=== PATIENT | male | born 1950 | race Caucasian/White ===

== ENCOUNTER 2021-12-30 08:31 | Outpatient (CLI) | payer SELFPAY ==
--- OUTSIDE RECORDS SUMMARY | 2021-12-30 08:34 | XMS_ITS | Clinical Summary ---
:1950 Author Organization [employer] [facility] [place] [address] Care Team Providers Name Role Phone Tomas Lopez MD Primary Care Provider Allergies Active Allergy Reactions Severity Noted Date Comments Lisinopril Cough 10/30/2007 Medications Medication Sig Dispensed Refills Start Date End Date Status ZYRTEC 10 MG TAB take 1 tablet 0 10/30/2007 Active (10 mg) by oral route once daily MULTIVITAMIN TAB take 1 tablet by 0 01/02/2008 Active oral route once daily with food FISH OIL 1,000 MG CAP 0 01/02/2008 Active metoprolol succinate Take 1 tablet by 180 tablet 3 08/26/2017 Active (TOPROL XL) 50 mg mouth 2 times sustained-release daily. tabletIndications: Essential hypertension, Hypertrophic obstructive cardiomyopathy (HC) atorvastatin (LIPITOR) Take 1 tablet by 0 10/20/2017 Active 40 mg tablet mouth once daily. rivaroxaban (XARELTO) Take 1 tablet by 0 10/20/2017 Active 20 mg tablet mouth once daily with evening meal. tamsulosin (FLOMAX) 0.4 Take 0.4 mg by 10 10/26/2017 Active mg capsule mouth once daily after a meal. omeprazole (PRILOSEC) Take 1 capsule 0 11/18/2017 Active 20 mg Delayed-Release by mouth once capsule daily before a meal. Active Problems Problem Noted Date Hypertrophic cardiomyopathy 11/18/2017 Hypertrophic obstructive cardiomyopathy 08/05/2017 GERD (gastroesophageal reflux disease) 01/02/2008 Adjustment disorder with depressed mood 11/13/2007 Benign neoplasm of colon 02/07/2007 Overview: Next Colonoscopy 07/2010 Pure hypercholesterolemia 12/20/2006 Unspecified essential hypertension 12/20/2006 Resolved Problems Problem Noted Date Resolved Date Elevated blood pressure reading without diagnosis of 007 12/20/2006 hypertension Immunizations Name Administration Dates Next Due Hepatitis A (Adult) 03/25/2003 Influenza, IIV3 (Age >=3 years) 01/02/2008, 01/14/2007 Td (Age >=7 Years) 12/18/1996 Tdap 09/19/2006 09/19/2016 Family History Medical History Relation Name Comments Other Brother 1 Aneurysm - Cereb ral survived Hyperlipidemia Brother 2 Heart Disease Brother 3 Atrial fibrillat ion, Pacemaker Arthritis Brother 4 Other Father of MVA at 4 9 Blood Disease Mother of Leukemia at 73 Heart Disease Paternal Uncle of [place] at 50 Other Sister 1 Aneurysm - Cereb ral survived Hyperlipidemia Sister 2 Arthritis Sister 3 Relation Name Status Comments Brother 1 Brother 2 Brother 3 Brother 4 Father Mother Paternal Uncle Sister 1 Sister 2 Sister 3 Social History Tobacco Use Types Packs/Day Years Used Date Current Every Day Smoker Cigarettes 0.5 37 Smokeless Tobacco: Never Used Alcohol Use Standard Drinks/Week Comments Yes 12 (1 standard drink = 0.6 oz pure alcoh ol) 12 pack per week Sex Assigned at Date Recorded Not on file Obstetrics History Last Filed Vital Signs Vital Sign Reading Time Taken Comments Blood Pressure 144/94 11/18/2017 11:31 AM CDT Pulse 69 11/18/2017 11:31 AM CDT Temperature 36.6 ??C (97.9 ??F) 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 Respiratory Rate - - Oxygen Saturation 99% 11/18/2017 11:31 AM CDT Inhaled Oxygen Concentration - - Weight 96.3 kg (212 lb 6.4 oz) 11/18/2017 11:31 AM CDT Height 177.8 cm (5' 10) 11/18/2017 11:31 AM CDT Body Mass Index 30.48 11/18/2017 11:31 AM CDT Plan of Treatment Health Maintenance Due Date Last Done Comments COVID-19 vaccine series (#1) 05/12/1951 Depression screening for age 12+ 1963 Hepatitis C screening for age 18-79 11/09/1969 Colonoscopy through age 75 11/09/1996 Zoster (shingles) series for age 50+ 11/09/2001 (1 of 2) Lipids for age 45-75 04/18/2012 04/18/2007, 01/24/2007, 06/14/2006 Tetanus booster 09/19/2016 09/19/2006, 12/18/1996 Pneumococcal series for age 65+ (1 - 11/09/2016 PCV) BMI (ht and wt on same day) for age 0811/18/2018 11/18/2017, 10/20/2017 18+ Influenza for age 65+ 11/26/2021 01/02/2008, 01/14/2007 Tdap Completed 09/19/2006 Results Not on filefrom Last 3 Months Insurance Payer Benefit Plan / Subscriber ID Effective Dates Phone Addre ss Type Group MEDICARE PART B MEDICARE PART B [id number] 2016-[employer]en ATTN: CLAIMS - HB USE ONLY HB ONLY t [address] [place] [address] [place] [place]OSS [place] BLUE CROSS [id number] 2016-Presen [address] [address] [place], [place] [id number] BLUE CROSS BLUE CROSS [id number] 2016-Presen [address] [address] [place] [address], [place] [id number] [phone] (Home) [place], [place] [phone] 1 (Work) [facility] Occ Employer 03/28/1900 [phone] ATTN [employer] 7 (Home) [place] [phone] [facility] [address] 7 (Work) [place] [address] Care Teams Membership Secretary Relationship Specialty Start Date End Date Tomas Lopez MD PCP - General Internal Medicine 07/25/171999 [place], [place] [id number]
[2021-12-30 10:21] LABS: Albumin* 4.5 g/dL (3.3-5.0); Chloride* 95 mmol/L (96-114)
[2021-12-30 10:22] LABS: Potassium* 4.8 mmol/L (3.6-5.1); Sodium* 130 mmol/L (135-149)
[2021-12-30 10:24] LABS: Alkaline Phosphatase* 64 U/L (40-150); Aspartate Amino Transferase* 36 U/L (12-35); Bilirubin Total* 0.5 mg/dL (0.1-1.5); Blood Urea Nitrogen* 15 mg/dL (7-30); Carbon Dioxide* 26 mmol/L (20-32); Cholesterol* 111 mg/dL (90-199); Creatinine* 0.7 mg/dL (0.5-1.5); Estimated Glomerular Filt Rate 99 ml/min; Glucose* 89 mg/dL (60-115); Total Protein* 7.3 g/dL (6.0-8.3)
[2021-12-30 10:25] LABS: Alanine Aminotransferase* 32 U/L (4-50); Calcium* 9.1 mg/dL (8.4-10.6); HDL Cholesterol* 49 mg/dL (>=40); LDL Cholesterol Calculated 45 mg/dL (<100); Triglycerides* 85 mg/dL (40-149)
[2021-12-30 10:55] LABS: PSA Screen* 0.55 ng/mL (0.10-4.00)
== END 2021-12-30 08:32 | disposition home or self-care (01) ==
PROVIDERS: PCP Internal Medicine; Visit Provider Internal Medicine
DX: Z00.00 Encounter for general adult medical examination without abnormal findings (principal); I10 Essential (primary) hypertension; I48.91 Unspecified atrial fibrillation; Z12.5 Encounter for screening for malignant neoplasm of prostate
CPT/HCPCS: 80053; 80061; 84153

== ENCOUNTER 2022-01-15 13:58 | Outpatient (CLI) | payer MEDICARE, BC, SELFPAY ==
--- OUTSIDE RECORDS SUMMARY | 2022-01-18 10:28 | XMS_ITS | Clinical Summary ---
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 Respiratory Rate - - Oxygen Saturation 99% [...] Group MEDICARE PART B MEDICARE PART B [id number] 2016-[employer] ATTN: CLAIMS - HB USE ONLY HB ONLY t [address] [place] [address] [address]UE CROSS MR BLUE CROSS [id number] 2016-[employer]en [address] [address] [place] [place], [place] [id number] [employer] [place] [id number] 2016-[employer]en [address] [address] [place] [address] [place], [place] [id number] [phone] (Home) [place], [place] [phone] 1 (Work) [facility] [employer] Occ Employer 03/28/1900 [phone] ATTN [employer] 7 (Home) [place] [phone] [facility] [address] 7 (Work) [place] [address] Care Teams Manager Medical Device Relationship Specialty Start Date End Date Tomas Lopez MD PCP - General Internal Medicine 07/25/171999 [place], [place] [id number]
== END 2022-01-15 13:59 | disposition home or self-care (01) ==
LOC: AMB 01-18 10:26
PROVIDERS: PCP Internal Medicine; Visit Provider Family Medicine
DX: R55 Syncope and collapse (principal)
CPT/HCPCS: A0425; A0427

== ENCOUNTER 2022-01-15 14:30 | Emergency (ER) | payer MEDICARE, BC, SELFPAY ==
[2022-01-15] VITALS (19 sets, daily range): BP systolic 112–164; BP diastolic 77–118; PULSE 33–126; TEMP 35.7; O2SAT 87–100; BMI 30.4
--- NOTE | 2022-01-15 15:11 | CRLHL7_ITS ---
For Patients: As a result of the Century Cures Act, medical imaging exams and procedure reports are released immediately into your electronic medical record. You may view this report before your referring provider. If you have questions, please contact your health care provider. Indication: Syncope, dizziness Comparison: Single view chest July 04, 2017 Technique: PA and lateral views of the chest Findings: There is mild hyperinflation and chronic interstitial change. There is no dense consolidation, effusion or pneumothorax. The cardiomediastinal silhouette is within normal limits. The bony thorax is grossly intact. Impression: No acute cardiopulmonary abnormality. Dictated by Juan Lui MD @ 01/15/2022 3:45:46 PM (Electronically Signed)
--- NOTE | 2022-01-15 15:12 | CRLHL7_ITS ---
For Patients: As a result of the Century Cures Act, medical imaging exams and procedure reports are released immediately into your electronic medical record. You may view this report before your referring provider. If you have questions, please contact your health care provider. INDICATION: Syncope, dizziness. TECHNIQUE: Head CT without contrast. Coronal and sagittal reformats were generated. COMPARISON: Head CT from 07/04/2017. FINDINGS: CSF spaces: Within normal limits for age. Brain parenchyma and extra-axial spaces: Nonspecific low attenuation white matter changes consistent with chronic microvascular disease. No sign of mass, hemorrhage, or midline shift. Skull base and calvarium: The visualized paranasal sinuses and mastoid air cells demonstrate no acute or significant findings. The visualized orbits are grossly unremarkable. No skull fractures. IMPRESSION: No acute or significant findings. Please note that all CT scans at this facility use dose modulation, iterative reconstruction, and/or weight-based dosing when appropriate to reduce radiation dose to as low as reasonably achievable. Dictated by Jose Mueller MD @ 01/15/2022 3:48:53 PM (Electronically Signed)
--- OUTSIDE RECORDS SUMMARY | 2022-01-15 15:18 | XMS_ITS | Clinical Summary ---
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 Respiratory Rate - - Oxygen Saturation [...] Group MEDICARE PART B MEDICARE PART B [id number] 2016-Presen ATTN: CLAIMS - HB USE ONLY HB ONLY t [address] [place] [address] BLUE CROSS MR BLUE CROSS [id number] 2016-[employer]en [address] [address] [place], [place] [id number] [employer] [place] BL[place] [id number] 2016-[place] [address] [address] [place], [place] [id number] [phone] (Home) [place], [place] [phone] 1 (Work) [facility] Occ Employer 03/28/1900 [phone] ATTN [employer] 7 (Home) [place] [phone] [facility] [address] 7 (Work) [place] [address] Care Teams Life Skills Instructor Relationship Specialty Start Date End Date Tomas Lopez MD PCP - General Internal Medicine 07/25/171999 [place], [place] [address]
[2022-01-15 15:31] LABS: Basophils Absolute Auto 0.04 K/uL (0.00-0.30); Basophils Percent Auto 0.4 % (0.0-3.0); Eosinophils Absolute Auto 0.39 K/uL (0.00-0.50); Eosinophils Percent Auto 4.2 % (0.0-7.0); Hematocrit 37.3 % (37.0-53.0); Hemoglobin* 12.7 gm/dL (13.5-17.5); Immature Granulocytes Abs Auto 0.03 K/uL (0.00-0.30); Lymphocytes Percent Auto 14.9 % (20-44); Mean Corpuscular HGB Conc 34 gm/dL (32-36); Mean Corpuscular Hemoglobin 31 pg (26-34); Mean Corpuscular Volume 92 fL (80-100); Monocytes Percent Auto 7.3 % (0.0-11.0); Neutrophils Percent Auto 72.9 % (42.0-72.0); Platelet Count* 264 K/uL (140-440); RDW Coefficient of Variation % 13.1 % (11.5-15.5); Red Blood Count 4.04 m/uL (4.30-5.90); White Blood Count* 9.35 K/uL (4.50-11.00)
[2022-01-15 15:36] LABS: Slide Review Reflex No
[2022-01-15 15:39] LABS: Troponin, Point-of-Care* 0.02 ng/ml (0.01-0.04)
[2022-01-15 15:44] LABS: Chloride* 89 mmol/L (96-114); Potassium* 3.8 mmol/L (3.6-5.1); Sodium* 125 mmol/L (135-149)
[2022-01-15 15:46] LABS: Estimated Glomerular Filt Rate 81 ml/min
[2022-01-15 15:47] LABS: Blood Urea Nitrogen* 22 mg/dL (7-30); Calcium* 8.8 mg/dL (8.4-10.6); Carbon Dioxide* 28 mmol/L (20-32); Glucose* 137 mg/dL (60-115); INR 1.05 (0.91-1.10); Partial Thromboplastin Time* 32 Seconds (23-33); Prothrombin Time 14.1 Seconds
[2022-01-15 15:49] LABS: D Dimer Quantitative* 0.41 ug/ml (0.00-0.50)
[2022-01-15 15:56] LABS: NT Pro B Type NatriureticPept* 468 PG/mL (0-125)
[2022-01-15 16:10] LABS: PCR FLU A Negative PCR FLU A (Negative); PCR FLU B Negative PCR FLU B (Negative); PCR RSV Negative PCR RSV (Negative)
[2022-01-15 16:11] LABS: Ethanol* < 0.01 % (0.01-0.03)
[2022-01-15 16:24] LABS: SARS PCR* Negative SARS-CoV-2 (Negative)
[2022-01-15] MEDS: 0.9 % SODIUM CHLORIDE 1000 ml 1,000 ML IV (16:50)
[2022-01-15 18:21] LABS: Troponin, Point-of-Care* 0.01 ng/ml (0.01-0.04)
[2022-01-15 18:26] LABS: Chloride* 91 mmol/L (96-114); Potassium* 3.7 mmol/L (3.6-5.1); Sodium* 128 mmol/L (135-149)
[2022-01-15 18:29] LABS: Blood Urea Nitrogen* 21 mg/dL (7-30); Carbon Dioxide* 26 mmol/L (20-32); Creatinine* 0.9 mg/dL (0.5-1.5); Estimated Glomerular Filt Rate 92 ml/min
[2022-01-15 18:30] LABS: Glucose* 158 mg/dL (60-115)
--- NOTE | 2022-01-15 18:58 | ED_ITS ---
HPI - Syncope General Date Seen: 01/15/22 Chief Complaint: Syncope/Fainted Stated Complaint: Syncopy Time Seen by Provider: 01/15/22 14:36 Source: patient, family and EMS Mode of arrival: EMS Limitations: no limitations History of Present Illness HPI narrative: Patient is a 71-year-old gentleman brought in by EMS for an episode of syncope, hypotension. Was coming back from [place], did not have any alcohol today, and when they pulled into the driveway, his noticed he was slumped forward, not responding, she did check, and he had a pulse, he just was not communicating with her, she roused him, and was able to get him into the house, by helping him, walk. There because he seems somewhat out of it, she called EMS the initial 0 readings were 60 on 40 for a blood pressure. He then was brought in here for further assessment. He tells me he has had this happen to him once before with no real specific episode he denies any chest pain shortness of breath, alcohol, trauma falls or other issue. There is no seizure-like activity occurring when this occurred. His blood pressure rapidly came up, and by the time they got him in the ambulance it was back to normal. He was eating and drinking otherwise normally and do ate his meal at [employer], he has recollection of what was occurring, but says he just felt weak. MD complaint: felt faint and collapsed Prodromal symptoms: lightheaded and other (Did have some prodrome will symptoms on for the couple minutes before) Witnessed: Yes - by Other Context: at rest Injuries sustained associated with event: none Current symptoms: none and back to baseline Treatments prior to arrival: IV fluids Related Data Home Medications Medication Instructions Recorded Confirmed atorvastatin 40 mg tablet 40 mg PO .Bedtime 12/30/21 12/30/21 cholecalciferol (vitamin D3) 25 25 mcg PO DAILY 12/30/21 12/30/21 mcg (1,000 unit) tablet diphenhydramine 25 2 tab PO .Bedtime 12/30/21 12/30/21 mg-acetaminophen 500 mg tablet fluticasone propionate 50 1 intranasal BID 12/30/21 12/30/21 mcg/actuation nasal spray,suspension glucosamine 750 jk-qdpvnu-qpf 2-C 1 tab PO DAILY 12/30/21 12/30/21 30 mg-D3 1,000 unit-ashleigh 1 mg tablet (Zowftfddmuz-Lbeshpszayl-GBS + vitD) metoprolol succinate 50 mg mg PO BID 12/30/21 12/30/21 tablet,extended release 24 hr multivitamin 1 tab PO QDAY 12/30/21 12/30/21 omega-3 fatty acids-fish oil 360 1 cap PO QDAY 12/30/21 12/30/21 mg-1,200 mg capsule (Fish Oil) omeprazole 20 mg capsule,delayed 20 mg PO DAILY 12/30/21 12/30/21 release rivaroxaban 20 mg tablet 20 mg PO DAILY 12/30/21 12/30/21 Previous Rx's Medication Instructions Recorded hydrochlorothiazide 12.5 mg tablet 12.5 mg PO QAM Hypertension #90 12/30/21 tabs fluocinolone acetonide oil 0.01 % 5 drp otic (ear) BID Ear Itching 12/31/21 ear drops 14 days #20 mL Allergies Allergy/AdvReac Type Severity Reaction Status Date / Time lisinopril Allergy Unknown Verified 12/30/21 08:02 Review of Systems Status of ROS: Reports: 10 or more systems reviewed and unremarkable except as noted in History and below [facility] Medical History Screening due Tobacco use Social History Smoking Status: Current every day smoker Exam Narrative: Exam Narrative: Patient is seen and assessed he is in no apparent problem speaking to me normally. He is alert oriented x3, color is good. Pupils are equal round reactive to light there is no scleral icterus redness there is no nystagmus, is TMs are normal his oropharynx is normal his neck is supple full range of motion is elicited, chest is clear bilaterally with no wheezing crackles noted heart sounds are normal. S1-S2, with no clicks murmurs or gallops. JVP is flat, carotid upstrokes are equal, chest is clear bilaterally with no wheezing crackles noted, abdomen is soft and obese there is no guarding no organomegaly. Extremities are no pitting edema swelling, he has no evidence of leg swelling. Const: Vital Signs, click to edit/add: Vital Signs - 24 hr 01/15/22 14:37 01/15/22 14:45 01/15/22 14:47 Temperature 96.2 F L Pulse Rate 126 H 66 Pulse Rate [Pulse Oximeter] 63 Blood Pressure 144/94 H Blood Pressure [Ri ght Upper Arm] 143/90 H Pulse Oximetry 96 88 98 Oxygen Delivery Me thod Room Air 01/15/22 15:00 01/15/22 15:01 01/15/22 15:30 Temperature Pulse Rate 64 33 L 67 Pulse Rate [Pulse Oximeter] Blood Pressure 158/91 H Blood Pressure [Ri ght Upper Arm] Pulse Oximetry 100 95 97 Oxygen Delivery Me thod Documenting provider has reviewed patient's vital signs: yes Course Course Hospital Course: I watched him for number of hours hear any was stable he remains stable on the monitor with no dysrhythmia, we gave him a L and half of fluid, because is sodium was low at 125 it cesar to 128, we watched him walk to the bathroom and I had his also view him and she thought he was stable. I think with stopping his hydrochlorothiazide would be a reasonable course, I did offer him admission but he says he feels fine. Would like to go. I do not think this is unreasonable given what I see but I think if this happens again then a further workup with an echo and likely Holter monitor will be needed along with hospitalization. At a minimum I would like him to see his doctor early in the week next week, have him seen, and recheck his basic metabolic profile. We went over signs and symptoms of worsening and he agreed to follow up these occur Vital Signs Vital signs: Initial Vital Signs Temperature 96.2 F L 01/15/22 14:37 Temperature Source Temporal Artery Scan 01/15/22 14:37 Pulse Rate 63 01/15/22 14:37 Blood Pressure 143/90 H 01/15/22 14:37 Blood Pressure Mean 107 01/15/22 14:37 Blood Pressure Position Supine 01/15/22 14:37 Pulse Oximetry 96 01/15/22 14:37 Oxygen Delivery Method 01/15/22 14:37 Vital Signs Temperature 96.2 F L 01/15/22 14:37 Pulse Rate 63 01/15/22 14:37 Blood Pressure 143/90 H 01/15/22 14:37 Pulse Oximetry 96 01/15/22 14:37 Oxygen Delivery Method 01/15/22 14:37 Temperature 96.2 F L 01/15/22 14:37 Pulse Rate 67 01/15/22 15:30 Blood Pressure 158/91 H 01/15/22 15:01 Pulse Oximetry 97 01/15/22 15:30 Oxygen Delivery Method 01/15/22 14:37 MDM - Syncope MDM Narrative Medical decision making narrative: Life-threatening differential diagnosis considered include: Cardiac arrhythmia, acute blood loss, and intracranial bleed. Other differential diagnosis include but are not limited to vasovagal syncope, orthostatic syncope, seizure, as well as other etiologies Differential Diagnosis Differential diagnosis: Likely syncope due to orthostatic hypotension, vasovagal syncope, complete atrioventricular block, subarachnoid hemorrhage, pulmonary embolism and dehydration Medical Records Attestation: I reviewed the patient's medical records. Lab Data Attestation: I reviewed the patient's lab results. Labs: Lab Results 01/15/22 01/15/22 01/15/22 Range/Units 15:12 15:25 15:25 WBC 9.35 (4.50-11.00) K/uL RBC 4.04 L (4.30-5.90) m/uL Hgb 12.7 L (13.5-17.5) gm/dL Hct 37.3 (37.0-53.0) % MCV 92 (80-100) fL MCH 31 (26-34) pg MCHC 34 (32-36) gm/dL RDW Coeff of Lor 13.1 (11.5-15.5) % Plt Count 264 (140-440) K/uL Neut % (Auto) 72.9 H (42.0-72.0) % Lymph % (Auto) 14.9 L (20-44) % [place] % (Auto) 7.3 (0.0-11.0) % Eos % (Auto) 4.2 (0.0-7.0) % Baso % (Auto) 0.4 (0.0-3.0) % Neut # (Auto) 6.80 (1.7-7.0) K/uL Lymph # (Auto) 1.40 (0.90-2.90) K/uL [place] # (Auto) 0.70 (0.00-0.90) K/UL Eos # (Auto) 0.39 (0.00-0.50) K/uL Baso # (Auto) 0.04 (0.00-0.30) K/uL Abs Immat Gran (auto) 0.03 (0.00-0.30) K/uL INR 1.05 (0.91-1.10) APTT 32 (23-33) Seconds D-Dimer Quant (PE/DVT) 0.41 (0.00-0.50) ug/ml Sodium (135-149) mmol/L Potassium (3.6-5.1) mmol/L Chloride (96-114) mmol/L Carbon Dioxide (20-32) mmol/L BUN (7-30) mg/dL Creatinine (0.5-1.5) mg/dL Estimated Creat Clear Estimated GFR ml/min Glucose (60-115) mg/dL Calcium (8.4-10.6) mg/dL NT-Pro-B Natriuret Pep (0-125) PG/mL Ethyl Alcohol (0.01-0.03) % SARS-CoV-2 (PCR) Negative SARS-CoV-2 (Negative) Influenza Type A (PCR) Negative PCR FLU A (Negative) Influenza Type B (PCR) Negative PCR FLU B (Negative) RSV (PCR) Negative PCR RSV (Negative) POC Troponin I (0.01-0.04) ng/ml 01/15/22 01/15/22 01/15/22 Range/Units 15:25 15:29 18:05 WBC (4.50-11.00) K/uL RBC (4.30-5.90) m/uL Hgb (13.5-17.5) gm/dL Hct (37.0-53.0) % MCV (80-100) fL MCH (26-34) pg MCHC (32-36) gm/dL RDW Coeff of Lor (11.5-15.5) % Plt Count (140-440) K/uL Neut % (Auto) (42.0-72.0) % Lymph % (Auto) (20-44) % [place] % (Auto) (0.0-11.0) % Eos % (Auto) (0.0-7.0) % Baso % (Auto) (0.0-3.0) % Neut # (Auto) (1.7-7.0) K/uL Lymph # (Auto) (0.90-2.90) K/uL [place] # (Auto) (0.00-0.90) K/UL Eos # (Auto) (0.00-0.50) K/uL Baso # (Auto) (0.00-0.30) K/uL Abs Immat Gran (auto) (0.00-0.30) K/uL INR (0.91-1.10) APTT (23-33) Seconds D-Dimer Quant (PE/DVT) (0.00-0.50) ug/ml Sodium 125 L 128 L (135-149) mmol/L Potassium 3.8 3.7 (3.6-5.1) mmol/L Chloride 89 L 91 L (96-114) mmol/L Carbon Dioxide 28 26 (20-32) mmol/L BUN 22 21 (7-30) mg/dL Creatinine 1.0 0.9 (0.5-1.5) mg/dL Estimated Creat Clear 66.50 66.50 Estimated GFR 81 92 ml/min Glucose 137 H 158 H (60-115) mg/dL Calcium 8.8 9.0 (8.4-10.6) mg/dL NT-Pro-B Natriuret Pep 468 H (0-125) PG/mL Ethyl Alcohol < 0.01 L (0.01-0.03) % SARS-CoV-2 (PCR) (Negative) Influenza Type A (PCR) (Negative) Influenza Type B (PCR) (Negative) RSV (PCR) (Negative) POC Troponin I 0.02 (0.01-0.04) ng/ml 01/15/22 Range/Units 18:05 WBC (4.50-11.00) K/uL RBC (4.30-5.90) m/uL Hgb (13.5-17.5) gm/dL Hct (37.0-53.0) % MCV (80-100) fL MCH (26-34) pg MCHC (32-36) gm/dL RDW Coeff of Lor (11.5-15.5) % Plt Count (140-440) K/uL Neut % (Auto) (42.0-72.0) % Lymph % (Auto) (20-44) % [place] % (Auto) (0.0-11.0) % Eos % (Auto) (0.0-7.0) % Baso % (Auto) (0.0-3.0) % Neut # (Auto) (1.7-7.0) K/uL Lymph # (Auto) (0.90-2.90) K/uL [place] # (Auto) (0.00-0.90) K/UL Eos # (Auto) (0.00-0.50) K/uL Baso # (Auto) (0.00-0.30) K/uL Abs Immat Gran (auto) (0.00-0.30) K/uL INR (0.91-1.10) APTT (23-33) Seconds D-Dimer Quant (PE/DVT) (0.00-0.50) ug/ml Sodium (135-149) mmol/L Potassium (3.6-5.1) mmol/L Chloride (96-114) mmol/L Carbon Dioxide (20-32) mmol/L BUN (7-30) mg/dL Creatinine (0.5-1.5) mg/dL Estimated Creat Clear Estimated GFR ml/min Glucose (60-115) mg/dL Calcium (8.4-10.6) mg/dL NT-Pro-B Natriuret Pep (0-125) PG/mL Ethyl Alcohol (0.01-0.03) % SARS-CoV-2 (PCR) (Negative) Influenza Type A (PCR) (Negative) Influenza Type B (PCR) (Negative) RSV (PCR) (Negative) POC Troponin I 0.01 (0.01-0.04) ng/ml D-dimer normal hemoglobin normal, any has negative troponins x2, Imaging Data Chest x-ray: Attestation: I have reviewed the pertinent imaging results. My impression: Negative chest x-ray negative head CT Radiologist's impression: Patient: ANA SEARS Facility: [facility] . Site : 1950 Study: XRay Chest 2 VIEW-01/15/2022 3:41:15 PM Ordering Physician: Prasanna Strickland Final Report: Indication: Syncope, dizziness Comparison: Single view chest July 04, 2017 Technique: PA and lateral views of the chest Findings: There is mild hyperinflation and chronic interstitial change. There is no dense consolidation, effusion or pneumothorax. The cardiomediastinal silhouette is within normal limits. The bony thorax is grossly intact. Impression: No acute cardiopulmonary abnormality. Dictated by Juan Lui MD @ 01/15/2022 3:45:46 PM (Electronic Signature) Patient: ANA SEARS Facility: [facility] . Site : 1950 Study: CT Head W/O-01/15/2022 3:42:29 PM Ordering Physician: Prasanna Strickland Final Report: INDICATION: Syncope, dizziness. TECHNIQUE: Head CT without contrast. Coronal and sagittal reformats were generated. COMPARISON: Head CT from 07/04/2017. FINDINGS: CSF spaces: Within normal limits for age. Brain parenchyma and extra-axial spaces: Nonspecific low attenuation white matter changes consistent with chronic microvascular disease. No sign of mass, hemorrhage, or midline shift. Skull base and calvarium: The visualized paranasal sinuses and mastoid air cells demonstrate no acute or significant findings. The visualized orbits are grossly unremarkable. No skull fractures. IMPRESSION: No acute or significant findings. Please note that all CT scans at this facility use dose modulation, iterative reconstruction, and/or weight-based dosing when appropriate to reduce radiation dose to as low as reasonably achievable. Dictated by Jose Mueller MD @ 01/15/2022 3:48:53 PM (Electronic Signature) ECG Data Attestation: I personally reviewed and interpreted this ECG as follows: ECG interpretation time: 19:05 Interpretation: EKG shows normal sinus rhythm with first-degree AV block, poor R-wave progression is seen across the precordial leads, no acute ST wave changes. Normal QRS, normal QT QTC baz Discharge Plan Discharge Clinical Impression: Syncope, Acute hyponatremia Patient Disposition: Home w/ Parent or Adult Condition: Improved Instructions: Hyponatremia (ED), Syncope in Older Adults (ED) Additional Instructions: Home, rest, take it easy, recommend decrease your intake of pure water for the next few days, you may use other fluids such as Gatorade, stop the hydrochlorothiazide, that is the new medication that your doctor put you on for blood pressure. I would like you to follow-up in the early part of the week with her doctor for a recheck of your blood pressure and what went on today along with a recheck of your electrolyte. Return here if increasing symptoms such as lightheadedness, weakness, passing out, Prescriptions: No Action cholecalciferol (vitamin D3) 25 mcg (1,000 unit) tablet 25 mcg PO DAILY multivitamin Tablet 1 tab PO QDAY omega-3 fatty acids-fish oil [Fish Oil] 360-1,200 mg capsule 1 cap PO QDAY fluticasone propionate 50 mcg/actuation spray,suspension 1 intranasal BID rivaroxaban 20 mg tablet 20 mg PO DAILY Rx Instructions: WITH MEAL metoprolol succinate 50 mg tablet extended release 24 hr PO BID omeprazole 20 mg capsule,delayed release(DR/EC) 20 mg PO DAILY atorvastatin 40 mg tablet 40 mg PO .Bedtime Cfcxkche-Bfrfnt-HUO with vit D 750-30-1,000-1 xn-vv-jibu-mg tablet 1 tab PO DAILY diphenhydramine-acetaminophen 25-500 mg tablet 2 tab PO .Bedtime hydrochlorothiazide 12.5 mg tablet 12.5 mg PO QAM Qty: 90 3RF fluocinolone acetonide oil 0.01 % drops 5 drp otic (ear) BID 14 Days Qty: 20 3RF Follow Up/Referrals: Tomas Lopez MD [Primary Care Provider] - Stand Alone Forms: Echo it Info Instructions
== END 2022-01-15 19:15 | disposition home or self-care (01) ==
PROVIDERS: Emergency Provider Family Medicine; PCP Internal Medicine
DX: R55 Syncope and collapse (principal); E87.1 Hypo-osmolality and hyponatremia
CPT/HCPCS: 36415; 70450; 71046; 80048; 82077; 83880; 85025; 85379; 85610; 85730; 87502; 87634; 87635; 93005; 96360; 99284; J7030

== ENCOUNTER 2022-02-17 08:21 | Outpatient (CLI) | payer MEDICARE, BC, SELFPAY ==
--- OUTSIDE RECORDS SUMMARY | 2022-03-04 16:16 | XMS_ITS | Clinical Summary ---
:1950 Author Organization [email or web address] [facility] [place] [address] Care Team Providers Name Role Phone Bashri [facility] Primary Care Provider Allergies No known active allergies Medications Medication Sig Dispensed Refills Start Date End Date Status ZYRTEC 10 MG TAB take 1 0 10/30/2007 Ac tive tablet (10 mg) by oral route once daily MULTIVITAMIN TAB take 1 0 01/02/2008 Ac tive tablet by oral route once daily with food FISH OIL 1,000 MG 0 01/02/2008 A ctive CAP metoprolol Take 1 180 tablet 3 08/26/2017 Active succinate (TOPROL tablet by XL) 50 mg mouth 2 sustained-release times daily. tabletIndications: Essential hypertension, Hypertrophic obstructive cardiomyopathy (HC) atorvastatin Take 1 0 10/20/2017 Active (LIPITOR) 40 mg tablet by tablet mouth once daily. rivaroxaban Take 1 0 10/20/2017 Active (XARELTO) 20 mg tablet by tablet mouth once daily with evening meal. omeprazole Take 1 0 11/18/2017 Active (PRILOSEC) 20 mg capsule by Delayed-Release mouth once capsule daily before a meal. tamsulosin (FLOMAX) Take 0.4 mg 10 10/26/2017 02 Discontinued 0.4 mg capsule by mouth 2 (*Pat ient states once daily no longer after a taking/Not on meal. sending fa cility list) Active Problems Problem Noted Date Hypertrophic cardiomyopathy 11/18/2017 Hypertrophic obstructive cardiomyopathy 08/05/2017 GERD (gastroesophageal reflux disease) 01/02/2008 Adjustment disorder with depressed mood 11/13/2007 Benign neoplasm of colon 02/07/2007 Overview: Next Colonoscopy 07/2010 Pure hypercholesterolemia 12/20/2006 Unspecified essential hypertension 12/20/2006 Resolved Problems Problem Noted Date Resolved Date Elevated blood pressure reading without diagnosis of 007 12/20/2006 hypertension Encounters Date Type Specialty Care Team Description 02/17/2022 Emergency Manuel Orozco, DO I nfluenza A (Primary Dx); Hyponatremia from Last 3 Months Immunizations Name Administration Dates Next Due Hepatitis [...] at 74 Heart Disease Paternal Uncle of [place] at 50 Other Sister 1 Aneurysm - [...] Sign Reading Time Taken Comments Blood Pressure 150/89 02/17/2022 11:46 AM [facility] Pulse 85 02/17/2022 11:46 AM [employer] Temperature 37.9 ??C (100.2 ??F) 02/17/2022 9:06 AM [employer] Respiratory Rate 18 02/17/2022 9:06 AM [employer] [employer]ER Oxygen Saturation 92% 02/17/2022 11:46 AM [employer] Inhaled Oxygen Concentration - - Weight 90.6 kg (199 lb 12.8 oz) 02/17/2022 9:16 AM [employer]E [employer] Height 175.3 cm (5' 9) 02/17/2022 9:16 AM [employer]ER Body Mass Index 29.51 02/17/2022 9:16 AM [employer]E [facility]ER Plan of Treatment Health Maintenance Due Date Last Done Comments Depression screening for age 12+ 1963 Hepatitis C screening for age 0811/09/1969 18-79 Colonoscopy through age 75 11/09/1996 Zoster (shingles) series for age 0811/09/2001 50+ (1 of 2) Lipids for age 45-75 04/18/2012 04/18/2007, 01/24/2007, 06/14/2006 Tetanus booster 09/19/2016 09/19/2006, 12/18/1996 Pneumococcal series for age 65+ (1 11/09/2016 - PCV) BMI (ht and wt on same day) for 11/18/2018 11/18/2017, 09/26 age 18+ Influenza for age 65+ 11/26/2021 01/02/2008, 01/14/2007 Tdap Completed 09/19/2006 COVID-19 vaccine series Completed 12/31/2021, 07/08/2021, 01/19/2021, Additional history exists Procedures Procedure Name Priority Date/Time Associated Comments Diagnosis URINALYSIS STAT 02/17/2022 11:21 Results for this MICROSCOPIC AM [employer] procedure are i n the results section. UA W/ SEDIMENT EXAM STAT 02/17/2022 11:21 Resu lts for this REFLEXED PER CRITERIA AM [employer] proced ure are in the results section. EKG 12 LEAD STAT 02/17/2022 9:53 AM Results f or this [employer] procedure are i n the results section. XR CHEST 1 VIEW STAT 02/17/2022 9:46 AM Result s for this PORTABLE [employer] procedure are i n the results section. CBC WITH AUTO STAT 02/17/2022 9:39 AM Results for this DIFFERENTIAL [employer] procedure are i n the results section. BRAIN NATRIURETIC STAT 02/17/2022 9:39 AM Resu lts for this PEPTIDE [employer] procedure are i n the results section. MAGNESIUM STAT 02/17/2022 9:39 AM Results f or this [employer] procedure are i n the results section. BASIC METABOLIC PANEL STAT 02/17/2022 9:39 AM Results for this [employer] procedure are i n the results section. CBC WITH AUTO STAT 02/17/2022 9:39 AM Results for this DIFFERENTIAL [employer] procedure are i n the results section. COVID 19 STAT 02/17/2022 9:36 AM Results f or this [employer] procedure are i n the results section. INFLUENZA A/B PCR STAT 02/17/2022 9:36 AM Resu lts for this [employer] procedure are i n the results section. COVID 19 COLLECTION STAT 02/17/2022 9:36 AM Re sults for this [employer] procedure are i n the results section. from Last 3 Months Results (ABNORMAL) URINALYSIS MICROSCOPIC (02/17/2022 11:21 AM [facility]) [facility] Method Time Signature RBC 6-10 (A) 0-2, None 02/17/2022 [place] Seen /HPF 11:49 AM [facility] WBC 0-2 0-2, 3-5, 02/17/2022 [place] None Seen 11:49 AM [facility] /HPF LABORATORY BACTERIA Few None Seen, 02/17/2022 [place] Rare, Few 11:49 AM [facility] Bacteria/H LABORATORY PF EPITHELIAL Few None Seen, 02/17/2022 [place] CELLS Few 11:49 AM [facility] Epi/HPF LABORATORY Mucus Present 02/17/2022 [place] 11:49 AM [facility] Specimen Anatomical Collection Method Collection Time Receive d Time (Source) Location / / Volume Laterality Urine URINE SPECIMEN / Non-Blood / 02/17/2022 11:21 022 Unknown Unknown AM [employer]ER 11:28 AM [facility] Manuel Orozco DO URINE Performing Organization Address City/State/ZIP Code Phon e Number [facility] [address] [place] [address] (ABNORMAL) URINALYSIS W REFLEX MICROSCOPIC IF POSITIVE (02/17/2022 11:21 AM [employer] [employer]) [facility] Method Time Signature COLOR Yellow Yellow Color 02/17/2022 [place] 11:43 AM [facility] CLARITY Clear Clear [facility]/17[facility]2022 [facility] Clarity 11:43 AM [facility] SPECIFIC 1.015 1.010, 02/17/2022 [place] GRAVITY,URINE 1.015, 11:43 AM [facility] 1.020, 1.025 LABORATORY PH,URINE 7.0 6.0, 7.0, 02/17/2022 [place] 8.0, 5.5, 11:43 AM [facility] 6.5, 7.5, LABORATORY 8.5 UROBILINOGEN, Normal Normal EU/dl 02/17/2022 [place] QUALITATIVE 11:43 AM [facility] PROTEIN, 30 (A) Negative 02/17/2022 [place] URINE mg/dL 11:43 AM [facility] GLUCOSE, Negative Negative 02/17/2022 [place] URINE mg/dL 11:43 AM [facility] KETONES,URINE Negative Negative 02/17/2022 [place] mg/dL 11:43 AM [facility] BILIRUBIN,URI Negative Negative 02/17/2022 [place] NE 11:43 AM [facility] OCCULT Trace (A) Negative 02/17/2022 [facility] BLOOD,URINE 11:43 AM [facility] NITRITE Negative Negative 02/17/2022 [place] 11:43 AM [facility] LEUKOCYTE Negative Negative 02/17/2022 [place] ESTERASE 11:43 AM [facility] Specimen Anatomical Collection Method Collection Time Receive d Time (Source) Location / / Volume Laterality Urine URINE SPECIMEN / Non-Blood / 02/17/2022 11:21 022 Unknown Unknown AM [employer]ER 11:28 AM [employer] [employer] Manuel Orozco DO URINE Performing Organization Address City/[facility] Phon e Number [facility] [address] [place] [address] EKG 12 LEAD (02/17/2022 9:53 AM [employer]ER) Component Value Ref Range Test Analysis Performed Pathologis t Method Time At Signature Interpretation Normal sinus rhythm BEYON D NOW Inferior infarct , age undetermined Anteroseptal infarct , age undetermined Abnormal ECG No acute changes When compared with ECG of 20-OCT-2017 09:35, Anteroseptal infarct is now Present Inferior infarct is now Present Ventricular Rate 100 BPM BEYOND NOW Atrial Rate 100 BPM BEYOND NOW P-R Interval 192 ms BEYOND NOW QRS Duration 92 ms BEYOND NOW QT 344 ms BEYOND NOW QTc 443 ms BEYOND NOW P [place] 49 degrees BEYOND NOW R [place] 9 degrees BEYOND NOW T [place] 32 degrees BEYOND NOW Specimen Anatomical Collection Method Collection Time Receive d Time (Source) Location / / Volume Laterality 02/17/2022 9:53 AM 1:12 [employer] [employer] PM [employer] Manuel Orozco DO EKG ORD Performing Organization Address City/State/ZIP Code Phon e Number [place] NOW [place], [place] XR CHEST 1 VIEW PORTABLE (02/17/2022 9:46 AM [employer]ER) Anatomical Region Laterality Modality HEART, THORAX, CHEST Digital Radiography Specimen (Source) Anatomical Collection Method Collection Time Re ceived Time Location / / Volume Laterality 02/17/2022 10:11 AM [employer]ER Impressions 02/17/2022 10:11 AM [employer]ER Heart size top normal. Prominent interstitium with differential considerations as above. Dictated by Jef Cervantes MD @ 02/18/20 10:11:56 AM (Electronically Signed) Narrative 02/17/2022 10:11 AM [employer]ER For Patients: ??As a result of the Cures Act, medical imaging exams and procedure report s are released immediately into your [employer] medical record. ??You may view this report before your referring provider. ??If you have questions, please contact your health care provider. INDICATION: Lightheadedness COMPARISON: April 30, 2013 TECHNIQUE: Single-view study FINDINGS: TUBES AND LINES: None. HEART AND MEDIASTINUM: Heart size top no rmal. LUNGS AND PLEURAL SPACES: Mildly promine nt interstitial markings could be related to edema, interstitial lung disease or mild interstitial pneumonitis.No pleural effusion or pneumothorax. OSSEOUS STRUCTURES: Age-appropriate appe arance. No acute focal finding. Procedure Note Jef Cervantes MD - 02/17/2022Format ting of this note might be different from the original. For Patients: As a result of the Cures Act, medical imaging exams and procedure reports are released immediately into your electronic medical record. You may view this report before your referring provider. If you have questions, please contact yo health care provider. INDICATION: Lightheadedness COMPARISON: April 30, 2013 TECHNIQUE: Single-view study FINDINGS: TUBES AND LINES: None. HEART AND MEDIASTINUM: Heart size top no rmal. LUNGS AND PLEURAL SPACES: Mildly promine nt interstitial markings could be related to edema, interstitial lung disease or mild interstitial pneumonitis.No pleural effusion or pneumothorax. OSSEOUS STRUCTURES: Age-appropriate appe arance. No acute focal finding. IMPRESSION: Heart size top normal. Prominent interst itium with differential considerations as above. Dictated by Jef Cervantes MD @ 02/18/20 10:11:56 AM (Electronically Signed) Manuel Orozco DO GENERAL IMAGING (ABNORMAL) CBC WITH AUTO DIFFERENTIAL (02/17/2022 9:39 AM [facility]) [facility] Method Time Signature WHITE BLOOD 7.8 4.5 - 02/17/2022 [place] COUNT 11.0 9:47 AM [facility] thou/cu LABORATORY mm RED BLOOD COUNT 3.83 (L) 4.30 - 02/17/2022 [place] 5.90 9:47 AM [facility] mil/cu mm LABORATORY HEMOGLOBIN 11.8 (L) 13.5 - 02/17/2022 [place] 17.5 g/dL 9:47 AM [facility] HEMATOCRIT 35.6 (L) 37.0 - 02/17/2022 [place] 53.0 % 9:47 AM [facility] MCV 93 80 - 100 02/17/2022 [place] fL 9:47 AM [facility] MCH 30.8 26.0 - 02/17/2022 [place] 34.0 pg 9:47 AM [facility] MCHC 33.1 32.0 - 02/17/2022 [place] 36.0 g/dL 9:47 AM [facility] RDW 14.0 11.5 - 02/17/2022 [place] 15.5 % 9:47 AM [facility] PLATELET COUNT 208 140 - 440 02/17/2022 [place] thou/cu 9:47 AM [facility] mm LABORATORY MPV 8.3 6.5 - 02/17/2022 [place] 11.0 fL 9:47 AM [facility] % NEUT 86.6 % 02/17/2022 [place] 9:47 AM [facility] % LYMPH 5.5 % 02/17/2022 [place] 9:47 AM [facility] % MONO 7.3 % 02/17/2022 [place] 9:47 AM [facility] % EOS 0.3 % 02/17/2022 [place] 9:47 AM [facility] % BASO 0.3 % 02/17/2022 [place] 9:47 AM [facility] ABSOLUTE 6.8 1.7 - 7.0 02/17/2022 [place] NEUTROPHILS thou/cu 9:47 AM [facility] mm LABORATORY ABSOLUTE 0.4 (L) 0.9 - 2.9 02/17/2022 [place] LYMPHOCYTES thou/cu 9:47 AM [facility] mm LABORATORY ABSOLUTE 0.6 <0.9 02/17/2022 [place] MONOCYTES thou/cu 9:47 AM [facility] mm LABORATORY ABSOLUTE 0.0 <0.5 02/17/2022 [place] EOSINOPHILS thou/cu 9:47 AM [facility] mm LABORATORY ABSOLUTE 0.0 <0.3 02/17/2022 [place] BASOPHILS thou/cu 9:47 AM [facility] mm LABORATORY Specimen Anatomical Collection Method / Collection Time Recei emerita Time (Source) Location / Volume Laterality Blood BLOOD SPECIMEN / Venipuncture / 02/17/2022 9:39 2021 9:44 Unknown Unknown AM [employer]ER AM [employer] Manuel Oorzco DO HEMATOLOGY Performing Organization Address City/[facility]/ZIP Code Phon e Number [facility] [address] [place] [address] (ABNORMAL) BRAIN NATRIURETIC PEPTIDE (02/17/2022 9:39 AM [employer]) athologist Signature BRAIN DIXIE 148 (H) <100 pg/mL 02/17[facility] PEPTIDE 10:10 AM [facility] Specimen Anatomical Collection Method / Collection Time Recei emerita Time (Source) Location / Volume Laterality Blood BLOOD SPECIMEN / Venipuncture / 02/17/2022 9:39 2021 9:44 Unknown Unknown AM [employer]E [employer]ER AM [employer]ER Manuel Orozco DO CHEMISTRY Performing Organization Address City/[facility]/ZIP [facility] Phon e Number [facility] [address] [place] [address] MAGNESIUM (02/17/2022 9:39 AM [employer]) athologist Signature MAGNESIUM 1.6 1.6 - 2.6 02/17/2022 [place] mg/dL 10:04 AM [facility] Specimen Anatomical Collection Method / Collection Time Recei emerita Time (Source) Location / Volume Laterality Blood BLOOD SPECIMEN / Venipuncture / 02/17/2022 9:39 2021 9:43 Unknown Unknown AM [employer]E [employer]ER AM [employer]ER Manuel Demond Orozco DO CHEMISTRY Performing Organization Address City/State/ZIP Code Phon e Number [facility] [address] [place] [address] (ABNORMAL) BASIC METABOLIC PANEL (02/17/2022 9:39 AM [employer]) Analysis Performed At Patho logist Time Signature SODIUM 128 (L) 135 - 145 02/17/2022 [place] mmol/L 10:03 AM [facility] POTASSIUM 3.9 3.5 - 5.0 02/17/2022 [place] mmol/L 10:03 AM [facility] CHLORIDE 92 (L) 98 - 110 02/17/2022 [place] mmol/L 10:03 AM [facility] CO2,TOTAL 25 21 - 31 02/17/2022 [place] mmol/L 10:03 AM [facility] ANION GAP 11 5 - 18 02/17/2022 [place] 10:03 AM [facility] GLUCOSE 108 (H) 65 - 100 02/17/2022 [place] mg/dL 10:03 AM [facility] CALCIUM 9.3 8.5 - 10.5 02/17/2022 [place] mg/dL 10:03 AM [facility] BUN 12 8 - 25 02/17/2022 [place] mg/dL 10:03 AM [facility] CREATININE 0.88 0.72 - 02/17/2022 [facility] 1.25 mg/dL 10:03 AM [facility] BUN/CREAT RATIO 14 10 - 20 02/17/2022 [place] 10:03 AM [facility] eGFR >90 >90 02/17/2022 [facility] mL/min/1.7 10:03 AM [facility] 3m2 LABORATORY Comment: As of 2021, eGFR is calcu lated by the CKD-EPI creatinine equation without race adjustment. eGFR can be inf luenced by muscle mass, exercise, and diet. The reported eGFR is an estimation only and is only applicable if the renal function is stable. Specimen Anatomical Collection Method / Collection Time Recei emerita Time (Source) Location / Volume Laterality Blood BLOOD SPECIMEN / Venipuncture / 02/17/2022 9:39 2021 9:43 Unknown Unknown AM [employer]E [employer]BBER AM [employer]ER Manuel Orozco DO CHEMISTRY Performing Organization Address [facility] Phon e Number [facility] [address] [place] [address] COVID 19 (02/17/2022 9:36 AM [employer]) [facility] Method Time Signature COVID 19 Not detected Not detected 02/17/2022 [place] 10:21 AM [facility] Specimen Anatomical Location / Collection Method Collection Jorge A e Received Time (Source) Laterality / Volume Other SPECIMEN FROM Non-Blood / 02/17/2022 9:36 02/17/2022 9:41 NASOPHARYNGEAL Unknown AM [employer]E RU[employer]ER AM [employer]ER STRUCTURE / Unknown Narrative [facility] - 10:21 AM [facility]CR[facility]E [facility]ER This test has been authorized by FDA und er an Emergency Use Authorization (EUA). This test is only authorized for the duration of time the declaration that circumstances exist justifying the authorization of th e emergency use of in vitro diagnostic tests for detection of SARS-CoV-2 virus and/or diagnosis of COVID-19 infection under section 564(b)(1) of the Act, 21 U.S.C. 360bbb-3(b) (1), unless the authorization is terminated or revoked sooner. Manuel Orozco DO MICROBIOLOGY Performing Organization Address [facility] Phon e Number [facility] [address] [place] [address] COVID 19 COLLECTION (02/17/2022 9:36 AM [employer]CR[employer]E [employer]ER) [facility] Method Time Signature TESTING [facility] 02/17/2022 [facility] Laboratory 9:41 AM [facility] Comment: Specimen submitted to [facility] for testing. Specimen Anatomical Location / Collection Method Collection Jorge A e Received Time (Source) Laterality / Volume Other SPECIMEN FROM Non-Blood / 02/17/2022 9:36 02/17/2022 9:41 NASOPHARYNGEAL Unknown AM [employer]CRETE RUBBER AM [employer]ER STRUCTURE / Unknown Manuel Orozco DO SEND OUTS Performing Organization Address [facility]/State/ZIP Code Phon e Number [facility] [address] [place] [address] (ABNORMAL) INFLUENZA A/B PCR (02/17/2022 9:36 AM [facility]) [facility] Method Time Signature INFLUENZA A Detected (A) 02/17/2022 [facility] PCR 10:22 AM [facility] INFLUENZA B NOT Detected 02/17/2022 [place] PCR 10:22 AM [facility] Specimen Anatomical Location / Collection Method Collection Jorge A e Received Time (Source) Laterality / Volume Other SPECIMEN FROM Non-Blood / 02/17/2022 9:36 02/17/2022 9:41 NASOPHARYNGEAL Unknown AM [employer]CRETE RUBBER AM [employer]ER STRUCTURE / Unknown Manuel Orozco DO MICROBIOLOGY Performing Organization Address City/State/ZIP Code Phon e Number [facility] [address] [place] [address] from Last 3 Months Insurance Payer Benefit Plan / Subscriber ID Effective Dates Phone Addre ss Type Group MEDICARE PART B MEDICARE PART B [id number] 2016-Presen ATTN: CLAIMS - HB USE ONLY HB ONLY t [address] [place] [address] [address] [place] BL[employer]OSS [id number] 2016-Presen [address] [address] [place], [place] [id number] BL[employer] [place]OSS BLUE CROSS [id number] 2016-Presen [address] [address] [address] [place], [place] [id number] [phone] 4 (Home) THALIA JEAN [phone] 1 (Work) [facility] [employer] Occ Employer 03/28/1900 [phone] ATTN CR [employer] 7 (Home) [place]IR[place] [phone] [facility] [address] (Work) [address] [place] [address] Care Teams Instructional Specialist Relationship Specialty Start Date End Date [facility] PCP - General 02/17/[address] [place] [address] [place]rera [id number]
--- OUTSIDE RECORDS SUMMARY | 2022-03-04 16:16 | XMS_ITS | Encounter Summary ---
:1950 Author Organization [facility] Address [address] [place] [address] Care Team Providers Name Role Phone Bernadine Carr P.A.-C. Primary Care Provider Reason for Visit Reason Comments Hypertension Medications Appointment Request (Routine) - Closed Specialty Diagnoses / Procedures Referred By Contact Refer red To Contact Community Internal Medicine Referral ID Status Reason Start Date Expiration Date Visits Requ ested Visits Authorized [id number] Closed 02/22/2022 02/22/2023 1 Encounter Details Date Type Department Care Team Description 02/26/2022 Office Visit Department of [place], Hyponatremia ( Primary Dx); Community Internal Anup Colindres Hypertension Essential Primary; Medicine in [address] Obstructive Sleep Apnea Adult; [place], [place] Syncope [address] [facility] [address] [place], [place] [phone] [address] (Work) [phone] Social History Tobacco Use Types Packs/Day Years Used Date Smoking Tobacco: Former Cigarettes 1.5 54 10/27 - 12/30/2021 Smokeless Tobacco: Never Tobacco Cessation: Counseling Given: Not Answered Comments: long time smoker Alcohol Use Standard Drinks/Week Comments Not Currently 0 (1 standard drink = 0.6 oz pure alcoho l) Alcohol Habits Answer Date Recorded How often do you have a drink containing alcohol? 2-3 times a week 01/19/2022 How many drinks containing alcohol do you have on a 3 or 4 01/19/2022 typical day when you are drinking? How often do you have six or more drinks on one Less than mo nthly 01/19/2022 occasion? Social Isolation Answer Date Recorded In a typical week, how many times do you talk on Once a week 01/19/2022 the phone with family, friends, or neighbors? How often do you get together with friends or Once a week 01/19/2022 relatives? How often do you attend pentecostalism or cheondoism 1 to 4 times per year 01/19/2022 services? Do you belong to any clubs or organizations such Yes 01/19/2022 as pentecostalism groups, unions, fraternal or athletic groups, or school groups? How often do you attend meetings of the clubs or Never 01/19/2022 organizations you belong to? Are you now , , , 01/19/2022 , never or living with a partner? Physical Activity Answer Date Recorded On average, how many days per week do you engage in moderate to 0 days 01/19/2022 strenuous exercise (like walking fast, running, jogging, dancing, swimming, biking, or other activities that cause a light or heavy sweat)? On average, how many minutes do you engage in exercise at th is 10 min 01/19/2022 level? Stress Answer Date Recorded Do you feel stress - tense, restless, nervous, or anxious, N ot at all 01/19/2022 or unable to sleep at night because your mind is troubled all the time - these days? Financial Resource Strain Answer Date Recorded How hard is it for you to pay for the very basics like Not h klever at all 01/19/2022 food, housing, medical care, and heating? Intimate Partner Violence Answer Date Recorded Within the last year, have you been afraid of your partner o r No 01/19/2022 ex-partner? Within the last year, have you been humiliated or emotionall y No 01/19/2022 abused in other ways by your partner or ex-partner? Within the last year, have you been kicked, hit, slapped, or No 01/19/2022 otherwise physically hurt by your partner or ex-partner? Within the last year, have you been raped or forced to have any No 01/19/2022 kind of sexual activity by your partner or ex-partner? Food Insecurity Answer Date Recorded Within the past 12 months, you worried that your food would Never true 01/19/2022 run out before you got money to buy more. Within the past 12 months, the food you bought just didn't N ever true 01/19/2022 last and you didn't have money to get more. Transportation Needs Answer Date Recorded In the past 12 months, has lack of transportation kept you f rom No 01/19/2022 medical appointments or from getting medications? In the past 12 months, has lack of transportation kept you f rom No 01/19/2022 meetings, work, or getting things needed for daily living? Housing Stability Answer Date Recorded In the last 12 months, was there a time when you were not ab le No 01/19/2022 to pay the mortgage or rent on time? In the last 12 months, how many places have you lived? 1 01/19/2022 In the last 12 months, was there a time when you did not hav e a No 01/19/[address] to [address] or slept in a detention (including now)? Education Answer Date Recorded What is the highest level of school Associate degree: onur fang, 01/19/2022 you have completed or the highest technical, or vocational p jacob degree you have received? Sex Assigned at Date Recorded Not on file documented as of this encounter Last Filed Vital Signs Vital Sign Reading Time Taken Comments Blood Pressure 152/97 02/26/2022 7:41 AM SECTION CHIEF Pulse 78 02/26/2022 7:41 AM SECTION CHIEF Temperature 36 ??C (96.8 ??F) 02/26/2022 7:32 AM SECTION CHIEF Respiratory Rate 24 02/26/2022 7:32 AM SECTION CHIEF Oxygen Saturation - - Inhaled Oxygen Concentration - - Weight 91.2 kg (200 lb 15.2 oz) 02/26/2022 7:32 AM SECTION CHIEF Height - - Body Mass Index 29.93 02/10/2022 9:05 AM SECTION CHIEF documented in this encounter Progress Notes Bernadine Carr P.A.-C. - 02/26/2022 8:00 AM CST SUBJECTIVE CHIEF COMPLAINT/REASON FOR VISIT Chief Complaint Patient presents with Hypertension Medications HISTORY OF PRESENT ILLNESS Carmelo Mckeon is a pleasant 71 y.o. male with a past medical history of hypertension, atrial fibrillation on Xarelto, and chronic hyponatremia who presents to the clinic today for blood pressure follow-up. His current blood pressure medications include lisinopril 20 mg daily and metoprolol succinate 50 mg BID. His blood pressure is elevated in clinic today but was at goal when he was in the ED on 02/17/2022 at which time he was diagnosed with influenza A. He has a history of chronic hyponatremia whichhas worsened with use of hydrochlorothiazide in the past. He is wondering about increasing his lisino pril. He does not take his blood pressure at home. His is present with him at today's visit. They have quite a few upcoming appointments with Cardiology given history of hypertrophic obstructive cardiomyopathy. They typically like to spend their moran in [place] but this has been delayed given patient's upcoming appointments. The following portions of the patient's history were reviewed and updated as appropriate: allergies,current medications, family history, medical history, social history, surgical history, and problem list. Pertinent positive ROS are listed above in HPI. 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 Angina/Angina Of Exertion) (HCC) Atrial Fibrillation Unspecified Hyponatremia Stroke (HCC) Syncope Obstructive Sleep Apnea Adult ALLERGIES/CONTRAINDICATIONS No Known Allergies CURRENT MEDICATIONS Current Outpatient Medications: atorvastatin (LIPITOR) 40 mg tablet, Take 40 mg by mouth at bedtime., Disp: , Rfl: cetirizine (ZyrTEC) 10 mg tablet, Take 10 mg by mouth daily., Disp: , Rfl: cholecalciferol, vitamin D3, 25 mcg (1,000 Unit) tablet, Take 25 mcg by mouth daily., Disp: , Rfl: diphenhydrAMINE-acetaminophen (TYLENOL PM) 25-500 mg per tablet, Take 1 tablet by mouth at bedtime as needed for sleep., Disp: , Rfl: fluocinolone acetonide oiL (DERMOTIC) 0.01 % otic oil, Administer 5 drops into each ear as needed.,Disp: , Rfl: fluticasone (VERAMYST) 27.5 mcg/actuation nasal spray, Administer 2 sprays into each nostril as needed for rhinitis., Disp: , Rfl: glucosamine sulfate (GLUCOSAMINE) 500 mg capsule, Take 500 mg by mouth daily. Two tablets daily, Disp: , Rfl: metoprolol succinate (TOPROL-XL) 50 mg 24 hr tablet, Take 1 tablet by mouth 2 (two) times a day., Disp: , Rfl: multivitamin tablet, Take 1 tablet by mouth daily., Disp: , Rfl: omega 6-brv-dwp-fish oil 1,000 mg (120 mg-180 mg) capsule, Take 1 capsule by mouth daily., Disp: , Rfl: omeprazole (PriLOSEC) [address] capsule, Take 20 mg by mouth daily., Disp: , Rfl: rivaroxaban (XARELTO) 20 mg tablet, Take 20 mg by mouth daily., Disp: , Rfl: lisinopriL (PRINIVIL,ZESTRIL) 30 mg tablet, Take 1 tablet (30 mg total) by mouth daily., Disp: 30 tablet, Rfl: 11 OBJECTIVE VITAL SIGNS Vitals: 02/26/22 0741 BP: (!) 152/97 Pulse: 78 Resp: Temp: PHYSICAL EXAMINATION General: Well-nourished, well-developed 71 y.o. in no apparent distress. Awake, alert, age appropriate. HEENT: Head is normocephalic, atraumatic. Conjunctivae and sclerae are clear. Cardiovascular: Regular rate, irregular rhythm. No murmurs, rubs, or gallops. Lungs: Clear to auscultation bilaterally with no adventitious sounds Skin: Warm, pink, and dry. Neurologic: Alert and oriented x3. ASSESSMENT / PLAN IMPRESSION/REPORT/PLAN: #1 Hypertension Essential Primary We have been working on Teofilos blood pressure for a couple months. Blood pressure is not at goal inclinic. We will increase lisinopril to 30 mg daily. Repeat BMP in 2 weeks. He has an appointment with Cardiology on 03/10/2022 and will get his blood pressure re-checked then. He will continue with metoprolol succinate 50 mg BID. #2 Hyponatremia This is chronic. Recheck sodium with BMP in two weeks. Order placed to re-check sodium in three months. - Basic Metabolic Panel; Future; Expected date: 05/27/2022 #3 Obstructive Sleep Apnea Adult This was diagnosed at an outside facility. Polysomnography is available in document viewer. He is compliant with his CPAP. #4 Cardiomyopathy Obstructive Hypertrophic (HCC) He has an upcoming appointment with Cardiology in two weeks. He has multiple tests coming up that hewould like to discuss with Dr. Lopez at his appointment. Other orders - lisinopriL (PRINIVIL,ZESTRIL) 30 mg tablet; Take 1 tablet (30 mg total) by mouth daily., Starting 02/26/2022, Normal - Basic Metabolic Panel; Future; Expected date: 03/10/2022 If symptoms worsen or do not improve, patient is instructed to seek further medical attention. All questions have been answered. Patient demonstrated understanding and verbalized agreement with the plan. Bernadine Carr P.A.-C. ION CHIEF documented in this encounter Plan of Treatment Upcoming Encounters Date Type Specialty Care Team Description 03/10/2022 Appointment Cardiovascular Disease Bernadine Carr P.A.-C. [address] [place] [phone] 03/31/2022 Comprehensive Visit Cardiovascular Disease Melissa Lopez M.D. [address] [place] [address] 04/02/2022 Clinical Communication Admitting/Central Scheduling 04/05/2022 Appointment Laboratory Medicine Daphne Rogers M.D. [address] [place] [phone] 04/05/2022 Appointment Radiology Daphne Rogers M.D. [address] [place] [phone] 04/05/2022 Ancillary Procedure Cardiovascular Disease Murray Rogers M.D. [address] [place] [phone] 04/05/2022 Appointment Radiology Daphne Rogers M.D. [address] [place] [phone] 04/05/2022 Diagnostic Pulmonary Medicine Daphne Rogers M.D. [address] [place] [phone] 04/05/2022 Appointment Cardiovascular Disease Daphne Rogers M.D. [address] [place] [phone] 04/06/2022 Comprehensive Visit Cardiovascular Disease Murray Rogers M.D. [address] [place] [phone] 04/06/2022 Comprehensive Visit Pulmonary Medicine Javier Dwyer APRN, C.N.P., D.N.P. [address] [place] [phone] 04/06/2022 Appointment Cardiovascular Disease Daphne Rogers M.D. [address] [place] [phone] 04/06/2022 Appointment Radiology Davis Hughes M.D. [address] [place] [phone] 04/07/2022 Comprehensive Visit Cardiovascular Disease Daphne Rogers M.D. [address] [place] [phone] Inge Morris M.S., [facility] [address] [place] [phone] 04/12/2022 Appointment Cardiovascular Disease Daphne Rogers M.D. [address] [place] [address] [place] [phone] Scheduled Orders Name Type Priority Associated Diagnoses Order S chedule Basic Metabolic Panel Lab Routine Hyponatremia Expect ed: 05/27/2022 (Approximate), Expires: 2023 Basic Metabolic Panel Lab Routine Hyponatrem ia Expected: 03/10/2022, Hypertension Essential Expir es: 05/28/2023 Primary documented as of this encounter Visit Diagnoses Diagnosis Hyponatremia - Primary Hypertension Essential Primary Obstructive Sleep Apnea Adult Syncope documented in this encounter Care Teams Ribbon Winder Relationship Specialty Start Date End Date Bernadine Carr P.A.-C. PCP - General Internal Medicine 01/19/22 [address] [place] [phone] [facility] 02/09/22 [address] [place] [address] documented as of this encounter
--- OUTSIDE RECORDS SUMMARY | 2022-03-04 16:16 | XMS_ITS | Encounter Summary ---
:1950 Author Organization [facility] Address [address] [place] [address] Care Team Providers Name Role Phone Bernadine Carr P.A.-C. Primary Care Provider [phone] Encounter Details Date Type Department Care Team Description 02/22/2022 Orders Only [facility] SELF TEST AUJAMAL Carr, Screening Cancer Colon [address] YASHIRA [place] [address] [address] [facility] [phone] [place] [address] Social History Tobacco Use Types Packs/Day Years Used Date Smoking Tobacco: Former Cigarettes 1.5 54 10/27 - 12/30/2021 Smokeless Tobacco: Never Comments: long time smoker Alcohol Use Standard [...] 01/19/2022 relatives? How often do you attend hindu or moravian 1 to 4 times per year 01/19/2022 services? Do you belong to any clubs or organizations such Yes 01/19/2022 as hindu groups, unions, fraternal or athletic groups, or [...] place to sleep or slept in a skilled nursing (including now)? Education Answer Date Recorded What is the highest level of school Associate degree: onur fang, 01/19/2022 you have completed or the highest technical, or vocational eloy james degree you have received? Sex Assigned at Date Recorded Not on file documented as of this encounter Plan of Treatment Upcoming Encounters Date Type Specialty Care Team Description 03/10/2022 Appointment Cardiovascular Disease Bernadine Carr P.A.-C. [address] [place] [address] 03/31/2022 Comprehensive Visit Cardiovascular Disease Melissa Lopez M.D. [address] [place] [address] 04/02/2022 Clinical Communication Admitting/Central Scheduling 04/05/2022 Appointment Laboratory Medicine Daphne Rogers M.D. [address] [place] [phone] 04/05/2022 Appointment Radiology Daphne Rogers M.D. [address] [place] [phone] 04/05/2022 Ancillary Procedure Cardiovascular Disease Murray Rogers M.D. [address] [place] [phone] 04/05/2022 Appointment Radiology Daphne Rogers M.D. [address] [place] [phone] 04/05/2022 Diagnostic Pulmonary Medicine Daphne Rogers M.D. [address] [place] [phone] 04/05/2022 Appointment Cardiovascular Disease Daphne Rogers M.D. [address] [place] [phone] 04/06/2022 Comprehensive Visit Cardiovascular Disease Murray Rogers M.D. [address] [place] [phone] 04/06/2022 Comprehensive Visit Pulmonary Medicine Javier Dwyer APRN, C.N.P., D.N.P. [address] [place] [phone] 04/06/2022 Appointment Cardiovascular Disease Daphne Rogers M.D. [address] [place] [phone] 04/06/2022 Appointment Radiology Davis Hughes M.D. [address] [place] [phone] 04/07/2022 Comprehensive Visit Cardiovascular Disease Daphne Rogers M.D. [address] [place] [phone] Inge Morris M.S., [facility] [address] [place] [phone] 04/12/2022 Appointment Cardiovascular Disease Daphne Rogers M.D. [address] [place] [address] documented as of this encounter Visit Diagnoses Diagnosis Screening Cancer Colon documented in this encounter Care Teams Student Admissions Clerk Relationship Specialty Start Date End Date Bernadine Carr P.A.-C. PCP - General Internal Medicine 01/19/[address] [place] [phone] [facility] 02/09/22 [address] [place] [address] documented as of this encounter
--- OUTSIDE RECORDS SUMMARY | 2022-03-04 16:16 | XMS_ITS | Encounter Summary ---
:1950 Author Organization [facility] Address [address] [place] [address] Care Team Providers Name Role Phone Bernadine Carr P.A.-C. Primary Care Provider [phone] Encounter Details Date Type Department Care Team Description 02/22/2022 Clinical Communication Department of Tj Carr [facility] Anup Colindres Medicine in [address] [address] [place], [place] [phone] [address] (Work) [phone] Social History Tobacco Use Types Packs/Day Years [...] 01/19/2022 relatives? How often do you attend episcopal or mormonism 1 to 4 times per year 01/19/2022 services? Do you belong to any clubs or organizations such Yes 01/19/2022 as episcopal groups, unions, fraternal or athletic groups, or [...] place to sleep or slept in a fpc (including now)? Education Answer Date Recorded What [...] Appointment Cardiovascular Disease Bernadine Carr P.A.-C. [address] [place] [address] 03/31/2022 Comprehensive Visit Cardiovascular Disease Melissa Lopez M.D. [address] [place] [address] 04/02/2022 Clinical Communication Admitting/Central Scheduling 04/05/2022 Appointment Laboratory Medicine Daphne Rogers M.D. [address] [place] [phone] 04/05/2022 Appointment Radiology Daphne Rogers M.D. [address] [place] [phone] 04/05/2022 Ancillary Procedure Cardiovascular Disease Murray Rogers M.D. [address] [place] [phone] 04/05/2022 Appointment Radiology Daphne Rogers M.D. [address] [place] [phone] 04/05/2022 Diagnostic Pulmonary Medicine Daphne Rogers M.D. [address] [place] [phone] 04/05/2022 Appointment Cardiovascular Disease Daphne Rogers M.D. [address] [place] [phone] 04/06/2022 Comprehensive Visit Cardiovascular Disease Murray Rogers M.D. [address] [place] [phone] 04/06/2022 Comprehensive Visit Pulmonary Medicine Javier Dwyer APRN, C.N.P., D.N.P. [address] [place] [phone] 04/06/2022 Appointment Cardiovascular Disease Daphne Rogers M.D. [address] [place] [phone] 04/06/2022 Appointment Radiology Davis Hughes M.D. [address] [place] [phone] 04/07/2022 Comprehensive Visit Cardiovascular Disease Daphne Rogers M.D. [address] [place] [phone] Inge Morris M.S., [facility] [address] [place] [phone] 04/12/2022 Appointment Cardiovascular Disease Daphne Rogers M.D. [address] [place] [phone] documented as of this encounter Visit Diagnoses Not on filedocumented in this encounter Care Teams Hostess Host Relationship Specialty Start Date End Date Bernadine Carr P.A.-C. PCP - General Internal Medicine 01/19/[address] [place] [phone] [facility] 02/09/22 [address] [place] [address] documented as of this encounter
--- OUTSIDE RECORDS SUMMARY | 2022-03-04 16:16 | XMS_ITS | Clinical Summary ---
:1950 Author Organization [facility] Address [address] [place] [address] Care Team Providers Name Role Phone Bernadine Carr P.A.-C. Primary Care Provider Source Comments Patient records contain information from all sites at [facility]. For routine questions regarding patient records, call [phone] during business hours, M-F 8:00 AM - 5:00 PM Central Time. Record requests for emergency care only can be directed to [phone] at any time.[facility] Allergies No known active allergies Medications Medication Sig Dispensed Refills Start Date End Date Status atorvastatin Take 40 mg by 0 10/30/2021 Ac tive (LIPITOR) 40 mg mouth at tablet bedtime. cetirizine Take 10 mg by 0 10/30/2007 Acti ve (ZyrTEC) 10 mg mouth daily. tablet omega Take 1 capsule 0 01/02/2008 Acti ve 3-sla-ply-fish by mouth daily. oil 1,000 mg (120 mg-180 mg) capsule metoprolol Take 1 tablet 0 08/26/2017 Acti ve succinate by mouth 2 (TOPROL-XL) 50 mg (two) times a 24 hr tablet day. multivitamin Take 1 tablet 0 01/02/2008 Ac tive tablet by mouth daily. omeprazole Take 20 mg by 0 10/30/2021 Acti ve (PriLOSEC) [address] capsule fluocinolone Administer 5 0 12/31/2021 Act guillermina acetonide oiL drops into each (DERMOTIC) 0.01 % ear as needed. otic oil rivaroxaban Take 20 mg by 0 10/20/2017 Act guillermina (XARELTO) 20 mg mouth daily. tablet cholecalciferol, Take 25 mcg by 0 Active vitamin D3, 25 mouth daily. mcg (1,000 Unit) tablet diphenhydrAMINE-a Take 1 tablet 0 Active cetaminophen by mouth at (TYLENOL PM) bedtime as 25-500 mg per needed for tablet sleep. fluticasone Administer 2 0 Activ e (VERAMYST) 27.5 sprays into mcg/actuation each nostril as nasal spray needed for rhinitis. glucosamine Take 500 mg by 0 Act guillermina sulfate mouth daily. (GLUCOSAMINE) 500 Two tablets mg capsule daily lisinopriL Take 1 tablet 30 tablet 11 02/26/2022 Acti ve (PRINIVIL,ZESTRIL (30 mg total) ) 30 mg tablet by mouth daily. lisinopriL Take 2 tablets 30 tablet 5 01/29/2022 Dis continued (PRINIVIL,ZESTRIL (10 mg total) 2 (Therapy ) 5 mg tablet by mouth daily. completed) lisinopriL Take 1 tablet 30 tablet 5 02/09/2022 Disc ontinued (PRINIVIL,ZESTRIL (20 mg total) 2 (Therapy ) 20 mg tablet by mouth daily. Ineffective) Active Problems Patient Care Coordination Note Formatting of this note might be differe nt from the original. Release of Information (Family and Frien ds) Spouse: Gretchen Mckeon Child: Freda Julien Problem Noted Date Obstructive Sleep Apnea Adult 02/26/2022 Overview: Sleep study at [facility]. Record in doc ument viewer. Complaint with CPAP. Stroke 02/25/2022 Overview: Stroke in 2018. Syncope 02/25/2022 Overview: Syncopal episode evaluated at [facility] in Fall 2021. This was thought to be due to hyponatremia after initiation of HCTZ. Hyponatremia 02/09/2022 Overview: Chronic, dating back to 2014. 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 Obstructive Sle ep Apnea Adult; Syncope 02/22/2022 Nurse Only [facility], Nurse Visit Bernadine, P.A.-C. Wandy Funk L.P.N. 02/22/2022 Hospital Encounter Laboratory Medicine [facility], Hy pertension Bernadine, Essential Prima ry P.A.-C. 02/22/2022 Clinical [facility], Communication Medicine Bernadine, P.A.-C. 02/22/2022 Orders Only Laboratory Medicine [facility], Screenin g Cancer Bernadine, Colon P.A.-C. 02/13/2022 Orders Only [facility], Hyponatre batsheva (Primary Medicine Bernadine, Dx) P.A.-C. 02/12/2022 Hospital Encounter Laboratory Medicine [facility], Hy pertension Bernadine, Essential Prima ry P.A.-C. 02/11/2022 Hospital Encounter Radiology [facility], Screening Abdominal Bernadine, Aortic Aneurysm P.A.-C. 02/11/2022 Clinical [facility], updated v accination Communication Medicine Bernadine, P.A.-C. 02/10/2022 Virtual Visit Pulmonary Medicine [facility], Smoking Tobacco Use Bernadine, Personal Histor y P.A.-C. (Primary Dx) Amina Canales, R.N. 02/09/2022 Office Visit [facility], Annual Medic are Bernadine, Examination Ret urn P.A.-C. (Primary Dx) Marcy Adan, R.N. 02/09/2022 Office Visit [facility], Hypertens ion Essential Primary (Primary Dx); Medicine Bernadine, Hyponatremia; P.A.-C. Pain Low Back U nspecified; Screening Cance r Colon; Screening Abdom inal Aortic Aneurysm 02/09/2022 Orders Only [facility], Medicine Bernadine, P.A.-C. 02/08/2022 Hospital Encounter Cardiovascular [facility], Atheros clerotic Heart Disease [place] Coronary Artery With Other Forms Angina Pectoris (Stable Angina/Angina Of Exertion) (HCC); Disease Bernadine, Atrial Fibrilla tion Unspecified; P.A.-C. Cardiomyopathy Hypertrophic (HCC) 02/08/2022 Orders Only Laboratory Medicine [facility], Screenin g Cancer Bernadine, Colon P.A.-C. 02/05/2022 Nurse Only [facility], Nurse Visit Bernadine, P.A.-C. Wandy Funk L.P.N. 02/05/2022 Hospital Encounter Laboratory [facility], Hy ponatremia Bernadine, P.A.-C. 02/05/2022 Orders Only [facility], Hypertens ion Medicine Bernadine, Essential Prima ry P.A.-C. (Primary Dx) 02/01/2022 Clinical [facility], Communication Medicine Bernadine, P.A.-C. 01/29/2022 Office Visit [facility] Cyndie Lopez Hypertensio n Gutierrez, L.P.N. Essential Prima ry (Primary Dx) 01/29/2022 Orders Only [facility], Hypertens ion Medicine Bernadine, Essential Prima ry P.A.-C. (Primary Dx) 01/27/2022 Nurse Triage [facility] Internal Sheela Chew [facility] mary Medicine E, R.N. 01/22/2022 Clinical [facility], Communication Medicine Bernadine, P.A.-C. 01/21/2022 Hospital Encounter Laboratory Medicine [facility], Hy ponatremia Bernadine, P.A.-C. 01/21/2022 Hospital Encounter Laboratory Medicine [facility], Hy ponatremia Bernadine, P.A.-C. 01/21/2022 Office Visit [facility], Hyponatre batsheva (Primary Dx); Medicine Bernadine, Syncope; P.A.-C. Hypertension Es sential Primary; Atherosclerotic Heart Disease [place] Coronary Artery With Other Forms Angina Pectoris (Stable Angina/Angina Of Exertion) (HCC); Atrial Fibrilla tion Unspecified; Cardiomyopathy Hypertrophic (HCC) 01/21/2022 Clinical [facility], Communication Medicine Gordy Colindres 01/13/2022 Community Orders Tomas Lopez M.D. 01/05/2022 [facility] Orders Reister, Atrial Fibr illation Tomas Cheek, Unspecified (Pr tate [place] Dx) 12/31/2021 Clinical Cardiovascular [facility], Triage (Berna houston Communication Disease Jemma Cruz referral- afib ) 12/30/2021 [facility] Orders Reister, Atrial Fibr illation Tomas Cheek, Unspecified (Pr tate [place] Dx) from Last 3 Months Immunizations Name Administration Dates Next Due H1N1 Inj 02/01/2009 HepA Adult 03/25/2003 Influenza (IM) Preservative Free 12/07/2012 Influenza TIV (IM) 01/02/2008, 01/14/2007 Influenza high dose QV(65 years or 12/29/2020 older) (PF) Influenza, Injectable, Quadrivalent 01/26/2016 Influenza, Seasonal, Injectable 12/26/2009, 01/02/2008 Influenza, Unspecified 12/27/2011, 02/01/2009 PCV13 03/18/2016 PPSV23 03/02/2017 RZV (SHINGRIX) 12/27/2018 Td, (Adult) Unspecified 12/18/1996 Tdap 02/09/2022, 10/18/2008, 09/19/2006 influenza high dose (65 years or 01/25/2022, 12/07/2018, , older) (PF) 12/07/2016 influenza vaccine quad 12/05/2019, 12/21/2013 (FLUZONE/FLUARIX) (6 months and older)(PF) Family History Medical History Relation Name Comments Alcohol abuse Brother 1 Vernon Hyperlipidemia Brother 1 Vernon Hypertension Brother 1 Vernon Lung cancer Brother 1 Vernon Brain Aneurysm Brother 2 Jones Hyperlipidemia Brother 2 Jones Hypertension Brother 2 Jones Pancreatic cancer Brother 2 Jones Skin cancer Brother 2 Jones Hyperlipidemia Brother 3 Arora Sleep apnea Brother 3 Arora No Known Problems Daughter Freda Brain Aneurysm Sister Janeane Breast cancer Sister Janeane Rheum arthritis Sister Imani Sleep apnea Sister Imani Obesity Son 1 Carlo Obesity Son 2 Oli Relation Name Status Comments Brother 1 Vernon Brother 2 Jones Brother 3 Arora Alive Daughter Freda Alive Father Mother Sister Imani Alive Son 1 Carlo Alive Son 2 Oli Alive Social History Tobacco Use Types Packs/Day Years [...] 01/19/2022 relatives? How often do you attend holiness or latter day 1 to 4 times per year 01/19/2022 services? Do you belong to any clubs or organizations such Yes 01/19/2022 as holiness groups, unions, fraternal or athletic groups, or [...] place to sleep or slept in a longterm (including now)? Education Answer Date Recorded What is the highest level of school Associate degree: onur fang, 01/19/2022 you have completed or the highest technical, or vocational p dieterram degree you have received? Sex Assigned at Date Recorded Not on file Last Filed Vital Signs Vital Sign Reading Time Taken Comments Blood Pressure 152/97 02/26/2022 7:41 AM CLOTHING DESIGNER Pulse 78 02/26/2022 7:41 AM CLOTHING DESIGNER Temperature 36 ??C (96.8 ??F) 02/26/2022 7:32 AM CLOTHING DESIGNER Respiratory Rate 24 02/26/2022 7:32 AM CLOTHING DESIGNER Oxygen Saturation 98% 01/21/2022 8:29 AM Room air, a t rest CDT Inhaled Oxygen - - Concentration Weight 91.2 kg (200 lb 15.2 02/26/2022 7:32 AM oz) CLOTHING DESIGNER Height 174.5 cm (5' 8.7) 02/10/2022 9:05 AM CLOTHING DESIGNER Body Mass Index 29.93 02/10/2022 9:05 AM CLOTHING DESIGNER Plan of Treatment Upcoming Encounters Date Type Specialty Care Team Description 03/10/2022 Appointment Cardiovascular Disease Bernadine Crar P.A.-C. [address] [place] [phone] 03/31/2022 Comprehensive Visit Cardiovascular Disease Melissa Lopez M.D. [address] [place] [phone] 04/02/2022 Clinical Communication Admitting/Central Scheduling 04/05/2022 Appointment Laboratory Medicine Daphne Rogers M.D. [address] [place] [phone] 04/05/2022 Appointment Radiology Daphne Rogers M.D. [address] [place] [address] [phone] 04/05/2022 Ancillary Procedure Cardiovascular Disease Murray Rogers M.D. [address] [place] [address] [phone] 04/05/2022 Appointment Radiology Daphne Rogers M.D. [address] [place] [phone] 04/05/2022 Diagnostic Pulmonary Medicine Daphne Rogers M.D. [address] [place] [phone] 04/05/2022 Appointment Cardiovascular Disease Daphne Rogers M.D. [address] [place] [phone] 04/06/2022 Comprehensive Visit Cardiovascular Disease Murray Rogers M.D. [address] [place] [phone] 04/06/2022 Comprehensive Visit Pulmonary Medicine Javier Dwyer APRN, C.N.P., D.N.P. [address] [place] [phone] 04/06/2022 Appointment Cardiovascular Disease Daphne Rogers M.D. [address] [place] [phone] 04/06/2022 Appointment Radiology Davis Hughes M.D. [address] [place] [phone] 04/07/2022 Comprehensive Visit Cardiovascular Disease Daphne Rogers M.D. [address] [place] [phone] Inge Morris M.S., [facility] [address] [place] [phone] 04/12/2022 Appointment Cardiovascular Disease Daphne Rogers M.D. [address] [place] [phone] Health Maintenance Due Date Last Done Comments CT Colonography 1950 Cologuard 1950 Colonoscopy 1950 Colorectal Cancer Surveillance 1950 Hepatitis C Screening 1950 Lipid (Cholesterol) Screening 1950 Lung Cancer Screening 1950 Zoster Vaccines (2 of 2) 02/21/2019 12/27/2018 Office Visit for Blood Pressure 05/27/2022 02/26/2022 Check / Re-check Creatinine Level 02/22/2023 02/22/2022, 02/12/2022, 02/05/2022, Additional history exists Potassium Level 02/22/2023 02/22/2022, 02/12/2022, 02/05/2022, Additional history exists Sodium Level 02/22/2023 02/22/2022, 02/12/2022, 02/05/2022, Additional history exists Visit: Chronic Disease, age 18+ 02/26/2023 02/26/2022 Fasting Glucose for Diabetes 02/22/2025 02/22/2022, 022, Screening 02/05/2022, Additional history exists DTaP,Tdap,and Td Vaccines (4 - Td 02/10/2032 02/09/2022, , or Tdap) 09/19/2006, Additional history exists Pneumococcal vaccine (65+ years) Completed 03/02/2017, COVID-19 Vaccine Completed 12/31/2021, 07/08/2021, 01/19/2021, Additional history exists Depression Screening (Annual Completed 01/21/2022 PHQ-2) Fall Risk Screen (Annual) Completed 01/21/2022 Influenza Vaccine Completed 01/25/2022, 12/29/2020, 12/05/2019, Additional history exists Abdominal Aortic Aneurysm (AAA) Completed 02/11/2022 Screen Procedures Procedure Name Priority Date/Time Associated Diagnosis Comme nts BASIC METABOLIC Routine 02/22/2022 12:44 Hypertension Results for PANEL, S/P PM CLOTHING DESIGNER Essential Primary this proce dure are in the results section. BASIC METABOLIC Routine 02/12/2022 9:18 Hypertension Results f or PANEL, S/P AM CLOTHING DESIGNER Essential Primary this proce dure are in the results section. US AORTA AAA RAD - Routine 02/11/2022 2:37 Screening Abdominal Resu lts for SCREENING (most inpatients PM CLOTHING DESIGNER Aortic Aneurysm this pro cedure and all are in the outpatients) results section. HOLTER MONITOR - Routine 02/09/2022 9:36 Atherosclerotic Heart Results for IN CLINIC HOOK AM CLOTHING DESIGNER Disease [place] this proced ure UP Coronary Artery With are in the Other Forms Angina results Pectoris (Stable section. Angina/Angina Of Exertion) (HCC) Atrial Fibrillation Unspecified Cardiomyopathy Hypertrophic (HCC) BASIC METABOLIC Routine 02/05/2022 9:32 Hyponatremia Results f or PANEL, S/P AM CLOTHING DESIGNER this procedure are in the results section. ECG Routine 01/21/2022 9:45 Hyponatremia Results for AM CDT this procedure are in the results section. BASIC METABOLIC Routine 01/21/2022 9:40 Hyponatremia Results f or PANEL, S/P AM CDT this procedure are in the results section. from Last 3 Months Results (ABNORMAL) Basic Metabolic Panel (02/22/2022 12:44 PM CLOTHING DESIGNER)Only the most recent of4 resultswithin the time period is included. P athologist Signature Potassium, P 4.1 3.6 - 5.2 02/22/2022 [place] mmol/L 4:21 PM CLOTHING DESIGNER Sodium, P 127 (L) 135 - 145 02/22/2022 [place] mmol/L 4:21 PM CLOTHING DESIGNER Chloride, P 88 (L) 98 - 107 02/22/2022 [place] mmol/L 4:21 PM CLOTHING DESIGNER Bicarbonate, P 27 22 - 29 02/22/2022 [place] mmol/L 4:21 PM CLOTHING DESIGNER Anion Gap, P 12 7 - 15 02/22/2022 [place] 4:21 PM CLOTHING DESIGNER BUN (Blood Urea 11 8 - 24 02/22/2022 [place] Nitrogen), P mg/dL 4:21 PM CLOTHING DESIGNER Creatinine 0.84 0.74 - 02/22/2022 [place] 1.35 mg/dL 4:21 PM CLOTHING DESIGNER Estimated GFR >90 >=60 02/22/2022 [place] (eGFR) mL/min/BSA 4:21 PM CLOTHING DESIGNER Comment: Estimated GFR calculated using the 2020 CKD_EPI creatinine equation. Calcium, Total, P 9.2 8.8 - 10.2 mg/dL 02/22/2022 4:21 PM CLOTHING DESIGNER [place] Glucose, P 108 70 - 140 mg/dL 02/22/2022 4:21 PM CLOTHING DESIGNER O DANK Specimen Anatomical Collection Method Collection Time Receive d Time (Source) Location / / Volume Laterality Blood (Blood, 02/22/2022 12:44 02/22/2022 4:21 Venous) PM CLOTHING DESIGNER PM CLOTHING DESIGNER Bernadine DotyCMillie LAB BLOOD ADD-ON Performing Organization Address City/State/ZIP Code Phon e Number [facility] [address] [place] [address] [facility] [place] [address] System in [place] [address] [facility] US Aorta AAA Screening (02/11/2022 2:37 PM CLOTHING DESIGNER) Anatomical Region Laterality Modality Abdomen, Pelvis, Ultrasound RST LOS, Ultrasound ARZ LOS, N/A Ultrasound Ultrasound FLA LOS Specimen (Source) Anatomical Location Collection Method / Collectio n Time Received Time / Laterality Volume Impressions 02/11/2022 2:40 PM CLOTHING DESIGNER 1. No evidence of abdominal aortic aneur ysm within the visualized aorta. Narrative 02/11/2022 2:40 PM CLOTHING DESIGNER EXAM: US AORTA AAA SCREENING HISTORY: 71-year-old male for abdominal aortic aneurysm screening. COMPARISON: None. FINDINGS: Technically difficult and mode rately suboptimal examination due to overlying bowel gas which segmentally limits visualization o f the aorta. No evidence of abdominal aortic aneurysm within the visualized aorta. Aorta: AP - 2.0 cm Aorta: Trans - 2.2 cm Right FIDENCIO: AP - 1.3 cm Right FIDENCIO: Trans - 1.3 cm Left FIDENCIO: AP - 1.5 cm Left FIDENCIO: Trans - 1.3 cm Bernadine Hebert-CMillie IMG US PROCEDURES HOLTER MONITOR - IN CLINIC DIVE SUPERINTENDENT (02/09/2022 9:36 AM CLOTHING DESIGNER) [facility] Method Time Signature Min Heart Rate 55 bpm INFOBIONIC MOME Max Heart Rate 95 bpm INFOBIONIC MOME Mean Heart 67 bpm INFOBIONIC Rate MOME VE Total Beats 13 count INFOBIONIC MOME VE Percent less than percent INFOBIONIC Beats 1 MOME SVE Total 270 count INFOBIONIC Beats MOME SVE Percent less than percent INFOBIONIC Beats 1 MOME AF Count 0 count INFOBIONIC MOME AF Duration 0 duration INFOBIONIC MOME AF [place] 0 percent INFOBIONIC MOME Symptom Count 0 count INFOBIONIC MOME Specimen (Source) Anatomical Collection Method Collection Time Re ceived Time Location / / Volume Laterality 02/08/2022 2:02 PM CLOTHING DESIGNER Narrative INFOBIONIC MOME - 02/10/2022 10:18 AM CS T Domenic. 1. The basic rhythm was sinus. The total analyzed time was 23h 39m. The heart rate varied from 55 to 95 bpm. The average HR was 67 bpm. 2. Premature ventricular complexes were noted singly. There were 13 PVCs recorded with a PVC burden of less than 1%. 3. Premature supraventricular complexes were noted singly, paired and in four, 3-13 beat atrial runs, maximum heart rate 105 bpm. ??There were 270 PACs recorded with a PAC burden of less than 1%. 4. No symptoms events were noted. Account Management Assistant: Hernan Schuler Procedure Note Meet Enamorado M.D. - 02/10/2022Formatt ing of this note might be different from the original. Domenic. 1. The basic rhythm was sinus. The total analyzed time was 23h 39m. The heart rate varied from 55 to 95 bpm. The average HR was 67 bpm. 2. Premature ventricular complexes were noted singly. There were 13 PVCs recorded with a PVC burden of less than 1%. 3. Premature supraventricular complexes were noted singly, paired and in four, 3-13 beat atrial runs, maximum heart rate 105 bpm. There were 270 PACs recorded with a PAC burden of less than 1%. 4. No symptoms events were noted. Account Management Assistant: Hernan Schuler Bernadine ArmandoAAmirah CV CARDIAC SERVICES PROCEDUR ES Performing Organization Address City/State/ZIP Code Phon e Number INFOBIONIC RINAE INFOBIONIC MOME NA ECG 12 Lead (01/21/2022 9:45 AM CDT) P athologist Signature Ventricular Rate 62 BPM MUSE ECG/Min DE Interval 242 ms MUSE QRSD Interval 98 ms MUSE QT Interval 390 ms MUSE QTC Interval 395 ms MUSE P [place] 55 degrees MUSE R [place] 17 degrees MUSE T Wave [place] 39 degrees MUSE Specimen Anatomical Collection Method Collection Time Receive d Time (Source) Location / / Volume Laterality 01/21/2022 9:45 AM 9:49 CDT AM CDT Impressions MUSE - 01/21/2022 9:49 AM CDT Sinus rhythm with sinus arrhythmia with 1st degree A-V block Cannot rule out Anteroseptal infarct When compared with ECG of 02-MAY-2013 07 :12, Premature atrial complexes are no longer present DE interval has increased Reviewed by ROBERTO French Narrative This result has an attachment that is no t available. Procedure Note Asher Hermosillo Jr., M.D. - 01/21/2022For matting of this note might be different from the original. IMPRESSION: Sinus rhythm with sinus arrhythmia with 1st degree A-V block Cannot rule out Anteroseptal infarct When compared with ECG of 02-MAY-2013 07 :12, Premature atrial complexes are no longer present DE interval has increased Reviewed by ROBERTO French Bernadine Carr P.A.-C. ECG ORDERABLES Performing Organization Address City/State/ZIP Code Phon e Number MUSE MUSE NA from Last 3 Months Insurance Payer Benefit Plan Subscriber ID Effective Phone Address Typ e / Group Dates MEDICARE MEDICARE A [id number] 2016-Pres [address] [place] [address] [employer] [place] [employer] [id number] 2021-Pres [phone] PO CATHY X Cost Share BLUE SHIELD BLUE COST ent [phone] [place] [phone]) [place] Minor [phone] Care Teams Dyed Raw Stock Blower Feeder Relationship Specialty Start Date End Date Bernadine Carr P.A.-C. PCP - General Internal Medicine 01/19/[address] [place] [address] THALIA Cabrera [phone] [facility] Dentist Dentistry 02/09/22 [address] [place], [place] [id number]
--- OUTSIDE RECORDS SUMMARY | 2022-03-04 16:17 | XMS_ITS | Encounter Summary ---
:1950 Author Organization [facility] Address [address] [place] [address] Care Team Providers Name Role Phone Bernadine Carr P.A.-C. Primary Care Provider Encounter Details Date Type Department Care Team Description 02/12/2022 Hospital Encounter Department of Josefina Carr Laboratory Medicine Nicola Colindres Primary in [place] [address] [facility] [address] [place] [phone] Social History Tobacco Use Types Packs/Day Years [...] 01/19/2022 relatives? How often do you attend denominational or tenriism 1 to 4 times per year 01/19/2022 services? Do you belong to any clubs or organizations such Yes 01/19/2022 as denominational groups, unions, fraternal or athletic groups, or [...] place to sleep or slept in a prison (including now)? Education Answer Date Recorded What is the highest level of school Associate degree: onur fang, 01/19/2022 you have completed or the highest technical, or vocational p jacob degree you have received? Sex Assigned at Date Recorded Not on file documented as of this encounter Medications at Time of Discharge Medication Sig Dispensed Refills Start Date End Date atorvastatin (LIPITOR) Take 40 mg by mouth 0 08/0 07/2021 40 mg tablet at bedtime. cetirizine (ZyrTEC) 10 Take 10 mg by mouth 0 06/2007 mg tablet daily. cholecalciferol, vitamin Take 25 mcg by mouth 0 D3, 25 mcg (1,000 Unit) daily. tablet diphenhydrAMINE-acetamin Take 1 tablet by 0 ophen (TYLENOL PM) mouth at bedtime as 25-500 mg per tablet needed for sleep. fluocinolone acetonide Administer 5 drops 0 12/31 oiL (DERMOTIC) 0.01 % into each ear as otic oil needed. fluticasone (VERAMYST) Administer 2 sprays 0 27.5 mcg/actuation nasal into each nostril as spray needed for rhinitis. glucosamine sulfate Take 500 mg by mouth 0 (GLUCOSAMINE) 500 mg daily. Two tablets capsule daily metoprolol succinate Take 1 tablet by 0 8 (TOPROL-XL) 50 mg 24 hr mouth 2 (two) times a tablet day. multivitamin tablet Take 1 tablet by 0 01/02/2008 mouth daily. omega 2-ton-lkx-fish oil Take 1 capsule by 0 09/2007 1,000 mg (120 mg-180 mg) mouth daily. capsule omeprazole (PriLOSEC) 20 Take 20 mg by mouth [address] capsule daily. rivaroxaban (XARELTO) 20 Take 20 mg by mouth 0 mg tablet daily. lisinopriL Take 1 tablet (20 mg 30 tablet 5 02/09/2022 120 04/2021 (PRINIVIL,ZESTRIL) 20 mg total) by mouth tablet daily. lisinopriL Take 2 tablets (10 mg 30 tablet 5 01/29/202204/2021 (PRINIVIL,ZESTRIL) 5 mg total) by mouth tablet daily. documented as of this encounter Plan of Treatment Upcoming Encounters Date Type Specialty Care Team Description 03/10/2022 Appointment Cardiovascular Disease Bernadine Carr P.A.-C. [address] [place] [phone] 03/31/2022 Comprehensive Visit Cardiovascular Disease Melissa Lopez M.D. 300 [place] [address] 04/02/2022 Clinical Communication Admitting/Central Scheduling 04/05/2022 Appointment Laboratory Medicine Daphne Rogers M.D. [address] [place] [address] [phone] 04/05/2022 Appointment Radiology Daphne Rogers M.D. [address] [place] [address] [phone] 04/05/2022 Ancillary Procedure Cardiovascular Disease Murray Rogers M.D. [address] [place] [address] [phone] 04/05/2022 Appointment Radiology Daphne Rogers M.D. [address] [place] [phone] 04/05/2022 Diagnostic Pulmonary Medicine Daphne Rogers M.D. [address] [place] [phone] 04/05/2022 Appointment Cardiovascular Disease Daphne Rogers M.D. [address] [place] [phone] 04/06/2022 Comprehensive Visit Cardiovascular Disease Murray Rogers M.D. [address] [place] [phone] 04/06/2022 Comprehensive Visit Pulmonary Medicine Javier Dwyer , SATELLITE COMMUNICATIONS ENGINEER, C.N.P., D.N.P. [address] [place] [phone] 04/06/2022 Appointment Cardiovascular Disease Daphne Rogers M.D. [address] [place] [phone] 04/06/2022 Appointment Radiology JackDavis conn M.D. [address] [place] [phone] 04/07/2022 Comprehensive Visit Cardiovascular Disease Daphne Rogers M.D. [address] [place] [phone] Inge Morris M.S., [facility] [address] [place] [phone] 04/12/2022 Appointment Cardiovascular Disease Daphne Rogers M.D. [address] [place] [phone] (work) documented as of this encounter Procedures Procedure Name Priority Date/Time Associated Diagnosis Comme nts BASIC METABOLIC Routine 02/12/2022 9:18 AM Hypertension Result s for this PANEL, S/P WORK AND FAMILY LIFE CONSULTANT Essential Primary procedure are in the results section. documented in this encounter Results (ABNORMAL) Basic Metabolic Panel (02/12/2022 9:18 AM WORK AND FAMILY LIFE CONSULTANT) P athologist Signature Potassium, P 4.6 3.6 - 5.2 02/12/2022 [place] mmol/L 11:12 AM WORK AND FAMILY LIFE CONSULTANT Sodium, P 131 (L) 135 - 145 02/12/2022 [place] mmol/L 11:12 AM WORK AND FAMILY LIFE CONSULTANT Chloride, P 91 (L) 98 - 107 02/12/2022 [place] mmol/L 11:12 AM WORK AND FAMILY LIFE CONSULTANT Bicarbonate, P 27 22 - 29 02/12/2022 [place] mmol/L 11:12 AM WORK AND FAMILY LIFE CONSULTANT Anion Gap, P 13 7 - 15 02/12/2022 [place] 11:12 AM WORK AND FAMILY LIFE CONSULTANT BUN (Blood Urea 16 8 - 24 02/12/2022 [place] Nitrogen), P mg/dL 11:12 AM WORK AND FAMILY LIFE CONSULTANT Creatinine 0.88 0.74 - 02/12/2022 [place] 1.35 mg/dL 11:12 AM WORK AND FAMILY LIFE CONSULTANT Estimated GFR >90 >=60 02/12/2022 [place] (eGFR) mL/min/BSA 11:12 AM WORK AND FAMILY LIFE CONSULTANT Comment: Estimated GFR calculated using the 2020 CKD_EPI creatinine equation. Calcium, Total, P 9.1 8.8 - 10.2 mg/dL 02/12/2022 11:1 2 AM WORK AND FAMILY LIFE CONSULTANT [place] Glucose, P 82 70 - 140 mg/dL 02/12/2022 11:12 AM WORK AND FAMILY LIFE CONSULTANT [place] Specimen Anatomical Collection Method Collection Time Receive d Time (Source) Location / / Volume Laterality Blood (Blood, 02/12/2022 9:18 AM 02/13/20 22 Venous) WORK AND FAMILY LIFE CONSULTANT 10:46 AM WORK AND FAMILY LIFE CONSULTANT Bernadine Carr P.A.-C. LAB BLOOD ADD-ON Performing Organization Address City/State/ZIP Code Phon e Number [facility] [address] [place] [address] [place] [address] System in [place] [address] documented in this encounter Visit Diagnoses Diagnosis Hypertension Essential Primary documented in this encounter Care Teams Video Poker Floorman Relationship Specialty Start Date End Date Bernadine Carr P.A.-C. PCP - General Internal Medicine 01/19/22 [address] [place] [phone] [facility] Dentist Dentistry 02/09/22 [address] [place] [address] documented as of this encounter
--- OUTSIDE RECORDS SUMMARY | 2022-03-04 16:17 | XMS_ITS | Encounter Summary ---
:1950 Author Organization [facility] Address [address] [place] [address] Care Team Providers Name Role Phone Bernadine Carr P.A.-C. Primary Care Provider Reason for Visit Outpatient (Routine) - Closed Specialty Diagnoses / Procedures Referred By Contact Refer red To Contact Diagnoses Screening Abdominal Aortic Aneurysm Bernadine Carr P.A.-C. [facility] Procedures US Aorta AAA Screening US Aorta [address] [place] [address] Referral ID Status Reason Start Date Expiration Date Visits Requ ested Visits Authorized [id number] Closed 02/09/2022 02/09/2023 1 1 Encounter Details Date Type Department Care Team Description 02/11/2022 Hospital Encounter Department of Mayo Carr Abdominal Radiology in [place], Aortic Aneurysm [place], [place] [address] [facility] 300 [place] [phone] Social History Tobacco Use Types Packs/Day Years [...] 01/19/2022 relatives? How often do you attend baptist or latter-day 1 to 4 times per year 01/19/2022 services? Do you belong to any clubs or organizations such Yes 01/19/2022 as baptist groups, unions, fraternal or athletic groups, or [...] place to sleep or slept in a alf (including now)? Education Answer Date Recorded What is the highest level of school Associate degree: onur fang, 01/19/2022 you have completed or the highest technical, or vocational p [facility] degree you have received? Sex Assigned at Date Recorded Not on file documented as of this encounter Medications at Time of Discharge Medication Sig Dispensed Refills Start Date End Date atorvastatin (LIPITOR) Take 40 mg by mouth 0 08/0 07/2021 40 mg tablet at bedtime. cetirizine (ZyrTEC) 10 Take 10 mg by mouth 0 08/0 06/2007 mg tablet daily. cholecalciferol, vitamin Take [...] tablet by 0 01/02/2008 mouth daily. omega 5-ydl-csn-fish oil Take 1 capsule by 0 09/2007 1,000 mg (120 mg-180 mg) mouth daily. capsule omeprazole (PriLOSEC) 20 Take 20 mg by mouth [address] capsule daily. rivaroxaban (XARELTO) 20 Take 20 mg by mouth 0 mg tablet daily. lisinopriL Take 1 tablet (20 mg 30 tablet 5 02/09/2022 12/0 04/2021 (PRINIVIL,ZESTRIL) 20 mg total) by mouth tablet daily. lisinopriL Take 2 tablets (10 mg 30 tablet 5 01/29/202204/2021 (PRINIVIL,ZESTRIL) 5 mg total) by mouth tablet daily. documented as of this encounter Plan of Treatment Upcoming Encounters Date Type Specialty Care Team Description 03/10/2022 Appointment Cardiovascular Disease Bernadine Carr P.A.-C. 300 [place] [phone] 03/31/2022 Comprehensive Visit Cardiovascular Disease Melissa Lopez M.D. 300 [place] [phone] 04/02/2022 Clinical Communication Admitting/Central Scheduling 04/05/2022 Appointment Laboratory Medicine Daphne Rogers M.D. [address] [place] [phone] 04/05/2022 Appointment Radiology Daphne Rogers M.D. [address] [place] [phone] 04/05/2022 Ancillary Procedure Cardiovascular Disease Murray Rogers M.D. [address] [place] [phone] 04/05/2022 Appointment Radiology Daphne Rogers M.D. [address] [place] [phone] 04/05/2022 Diagnostic Pulmonary Medicine Daphne Rogers M.D. [address] [place] [phone] 04/05/2022 Appointment Cardiovascular Disease Daphne Rogers M.D. [address] [place] [phone] 04/06/2022 Comprehensive Visit Cardiovascular Disease Murray Rogers M.D. [address] [place] [phone] 04/06/2022 Comprehensive Visit Pulmonary Medicine Javier Dwyer APRN, C.N.P., D.N.P. [address] [place] [phone] 04/06/2022 Appointment Cardiovascular Disease Daphne Rogers M.D. [address] [place] [phone] 04/06/2022 Appointment Radiology Davis Hughes M.D. [address] [place] [phone] 04/07/2022 Comprehensive Visit Cardiovascular Disease Daphne Rogers M.D. [address] [place] [phone] Inge Morris M.S., [facility] [address] [place] [phone] 04/12/2022 Appointment Cardiovascular Disease Daphne Rogers M.D. [address] [place] [phone] documented as of this encounter Procedures Procedure Name Priority Date/Time Associated Comments Diagnosis US AORTA AAA RAD - Routine 02/11/2022 2:37 Screening Results for this SCREENING (most inpatients PM CENTRAL SUPPLY WORKER Abdominal Aortic procedu re are in and all Aneurysm the results outpatients) section. documented in this encounter Results US Aorta AAA Screening (02/11/2022 2:37 PM CENTRAL SUPPLY WORKER) Anatomical Region Laterality Modality Abdomen, Pelvis, Ultrasound RST LOS, Ultrasound ARZ LOS, N/A Ultrasound Ultrasound FLA LOS Specimen (Source) Anatomical Location Collection Method / Collectio n Time Received Time / Laterality Volume Impressions 02/11/2022 2:40 PM CENTRAL SUPPLY WORKER 1. No evidence of abdominal aortic aneur ysm within the visualized aorta. Narrative 02/11/2022 2:40 PM CENTRAL SUPPLY WORKER EXAM: US AORTA AAA SCREENING HISTORY: 71-year-old [...] Left FIDENCIO: Trans - 1.3 cm Bernadine Carr P.A.-C. IMG US PROCEDURES documented in this encounter Visit Diagnoses Diagnosis Screening Abdominal Aortic Aneurysm documented in this encounter Care Teams Lpn Cma Relationship Specialty Start Date End Date Bernadine Carr P.A.-C. PCP - General Internal Medicine 01/19/[address] [place] [address] [place] [phone] [facility] Dentist Dentistry 02/09/22 [address] [place] [address] documented as of this encounter
--- OUTSIDE RECORDS SUMMARY | 2022-03-04 16:17 | XMS_ITS | Encounter Summary ---
:1950 Author Organization [facility] Address [address] [place] [address] Care Team Providers Name Role Phone Brenadine Carr P.A.-C. Primary Care Provider Reason for Visit Reason Comments updated vaccination Encounter Details Date Type Department Care Team Description 02/11/2022 Clinical Communication Department of kya Carr vaccination [facility] Internal [place], Medicine in [place] [address] [place] [address] [facility] [address] [place], [place] [phone] (Work) [phone] Social History Tobacco Use Types Packs/Day Years [...] 01/19/2022 relatives? How often do you attend zoroastrian or jain 1 to 4 times per year 01/19/2022 services? Do you belong to any clubs or organizations such Yes 01/19/2022 as zoroastrian groups, unions, fraternal or athletic groups, or [...] place to sleep or slept in a jail (including now)? Education Answer Date Recorded What is the highest level of school Associate degree: onur fang, 01/19/2022 you have completed or the highest technical, or vocational p dieterram degree you have received? Sex Assigned at Date Recorded Not on file documented as of this encounter Miscellaneous Notes Telephone Encounter - Dagmar Shaw, L.P.N. - 02/11/2022 2:59 PM CALENDER ROLL PRESS OPERATOR Information added to his chart. NDER ROLL PRESS OPERATOR Telephone Encounter - Ileana Hartmann - 02/11/2022 2:18 PM CST Patient would like me to inform you, he received his tetanus shot at [facility] on 02/09/22. NDER ROLL PRESS OPERATOR documented in this encounter Plan of Treatment Upcoming Encounters Date Type Specialty Care Team Description 03/10/2022 Appointment Cardiovascular Disease Bernadine Carr P.A.-C. [address] [place] [phone] 03/31/2022 Comprehensive Visit Cardiovascular Disease Melissa Lopez M.D. [address] [place] [phone] 04/02/2022 Clinical Communication Admitting/Central Scheduling 04/05/2022 Appointment Laboratory Medicine Daphne Rogers M.D. [address] [place] [phone] 04/05/2022 Appointment Radiology Daphne Rogers M.D. [address] [place] [phone] 04/05/2022 Ancillary Procedure Cardiovascular Disease Murray Rogers M.D. [address] [place] [phone] 04/05/2022 Appointment Radiology Daphne Rogers M.D. [address] [place] [phone] 04/05/2022 Diagnostic Pulmonary Medicine Daphne Rogers M.D. [address] [place] [phone] 04/05/2022 Appointment Cardiovascular Disease Daphne Rogers M.D. [address] [place] [phone] 04/06/2022 Comprehensive Visit Cardiovascular Disease Murray Rogers M.D. [address] [place] [phone] 04/06/2022 Comprehensive Visit Pulmonary Medicine Javier Dwyer APRN, C.N.P., D.N.PMillie [address] [place] [phone] 04/06/2022 Appointment Cardiovascular Disease Daphne Rogers M.D. [address] [place] [phone] 04/06/2022 Appointment Radiology Davis Hughes M.D. [address] [place] [phone] 04/07/2022 Comprehensive Visit Cardiovascular Disease Daphne Rogers M.D. [address] [place] [address] [phone] Inge Morris M.S., [facility] [address] [place] [phone] 04/12/2022 Appointment Cardiovascular Disease Daphne Rogers M.D. [address] [place] [phone] documented as of this encounter Visit Diagnoses Not on filedocumented in this encounter Care Teams Skip Hoist Engineer Relationship Specialty Start Date End Date Bernadine Carr P.A.-C. PCP - General Internal Medicine 01/19/[address] [place] [phone] [facility] Dentist Dentistry 02/09/22 [address] [place] [address] documented as of this encounter
--- OUTSIDE RECORDS SUMMARY | 2022-03-04 16:17 | XMS_ITS | Encounter Summary ---
:1950 Author Organization [facility] Address [address] [place] [address] Care Team Providers Name Role Phone Bernadine Carr P.A.-C. 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 Cardiomyopathy Hypertrophic (HCC) [address] [facility] [place] [phone] Social History Tobacco Use Types Packs/Day Years Used Date Smoking Tobacco: Former Cigarettes 1.5 50 Quit : 01/03/2022 Smokeless Tobacco: Never Alcohol Habits Answer Date Recorded How often [...] How often do you attend zoroastrian or episcopalian 1 to 4 times per year 01/19/2022 [...] place to sleep or slept in a [facility] (including now)? Education Answer Date Recorded What is the highest level of school Associate degree: onur fang, 01/19/2022 you have completed or the highest technical, or vocational p [facility] degree you have received? Sex Assigned at Date Recorded Not on file documented as of this encounter Medications at Time of Discharge Medication Sig Dispensed Refills Start Date End Date atorvastatin (LIPITOR) Take 40 mg by mouth 0 08/0 07/2021 40 mg tablet at bedtime. cetirizine (ZyrTEC) 10 Take 10 mg by mouth 0 /0 06/2007 mg tablet daily. cholecalciferol, vitamin Take [...] tablet by 0 01/02/2008 mouth daily. omega 8-hob-hci-fish oil Take 1 capsule by 0 /09/2007 1,000 mg (120 mg-180 mg) mouth daily. capsule omeprazole (PriLOSEC) 20 Take 20 mg by mouth [address] capsule daily. rivaroxaban (XARELTO) 20 Take 20 mg by mouth 0 mg tablet daily. lisinopriL Take 2 tablets (10 mg 30 tablet 5 01/29/202204/2021 (PRINIVIL,ZESTRIL) 5 mg total) by mouth tablet daily. documented as of this encounter Plan of Treatment Upcoming Encounters Date Type Specialty Care Team Description 03/10/2022 Appointment Cardiovascular Disease Bernadine Carr P.A.-C. [address] [place] [address] [place] [phone] 03/31/2022 Comprehensive Visit Cardiovascular Disease Melissa Lopez M.D. [address] [place] [phone] 04/02/2022 Clinical Communication Admitting/Central Scheduling 04/05/2022 Appointment Laboratory Medicine Daphne Rogers M.D. [address] [place] [phone] 04/05/2022 Appointment Radiology Daphne Rogers M.D. [address] [place] [phone] 04/05/2022 Ancillary Procedure Cardiovascular Disease Murray Rogers M.D. [address] [place] [phone] 04/05/2022 Appointment Radiology Daphne Rogers M.D. [address] [place] [phone] 04/05/2022 Diagnostic Pulmonary Medicine Daphne Rogers M.D. [address] [place] [phone] 04/05/2022 Appointment Cardiovascular Disease Daphne Rogers M.D. [address] [place] [phone] 04/06/2022 Comprehensive Visit Cardiovascular Disease Murray Rogers M.D. [address] [place] [phone] 04/06/2022 Comprehensive Visit Pulmonary Medicine Javier Dwyer APRN, C.N.P., D.N.PMillie [address] [place] [phone] 04/06/2022 Appointment Cardiovascular Disease Daphne Rogers M.D. [address] [place] [phone] 04/06/2022 Appointment Radiology Davis Hughes M.D. [address] [place] [phone] 04/07/2022 Comprehensive Visit Cardiovascular Disease Daphne Rogers M.D. [address] [place] [phone] Inge Morris M.S., [facility] [address] [place] [phone] 04/12/2022 Appointment Cardiovascular Disease Daphne Rogers M.D. [address] [place] [phone] documented as of this encounter Procedures Procedure Name Priority Date/Time Associated Diagnosis Comme nts HOLTER MONITOR - Routine 02/09/2022 9:36 AM Atherosclerotic He art Results for this IN CLINIC SENIOR FACILITIES MANAGER COMMODITIES TRADER Disease [place] Coronary procedure are in Artery With Other Forms the results Angina Pectoris (Stable sect ion. Angina/Angina Of Exertion) (HCC) Atrial Fibrillation Unspecified Cardiomyopathy Hypertrophic (HCC) documented in this encounter Results HOLTER MONITOR - IN CLINIC SENIOR FACILITIES MANAGER (02/09/2022 9:36 AM COMMODITIES TRADER) [facility] gist Method Time Signature Min Heart Rate 55 [...] AF Duration 0 duration INFOBIONIC MOME AF Tobias 0 percent INFOBIONIC MOME Symptom Count 0 count INFOBIONIC MOME Specimen (Source) Anatomical Collection Method Collection Time Re ceived Time Location / / Volume Laterality 02/08/2022 2:02 PM COMMODITIES TRADER Narrative INFOBIORIANA MOME - 02/10/2022 10:18 AM CS T [...] 1%. 4. No symptoms events were noted. Visual Education Director: Hernan Schuler Procedure Note Meet Enamorado M.D. - 02/10/2022Formatt ing of this note might be different from the original. [place]. 1. The basic rhythm was sinus. The [...] 1%. 4. No symptoms events were noted. Visual Education Director: Hernan Schuler Bernadine Carr P.A.-C. 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 PCP - General Internal Medicine 01/19/[address] [place] [address] [place] [phone] documented as of this encounter
--- OUTSIDE RECORDS SUMMARY | 2022-03-04 16:17 | XMS_ITS | Encounter Summary ---
:1950 Author Organization [facility] Address [address] [place] [address] Care Team Providers Name Role Phone Bernadine Carr P.A.-C. Primary Care Provider Encounter Details Date Type Department Care Team Description 02/05/2022 Hospital Encounter Department of Laboratory Bernadine Carr Hyponatremia Medicine in [place] 300 [facility] [address] [place] [phone] Social History Tobacco Use Types Packs/Day Years [...] 01/19/2022 relatives? How often do you attend restorationism or sikh 1 to 4 times per year 01/19/2022 services? Do you belong to any clubs or organizations such Yes 01/19/2022 as restorationism groups, unions, fraternal or athletic groups, or [...] (LIPITOR) Take 40 mg by mouth 0 07/2021 40 mg tablet at bedtime. cetirizine [...] tablet by 0 01/02/2008 mouth daily. omega 8-iul-rnl-fish oil Take 1 capsule by 0 /09/2007 [...] Appointment Cardiovascular Disease Bernadine Carr P.A.-C. [address] [place] [phone] 03/31/2022 Comprehensive Visit Cardiovascular Disease Melissa Lopez M.D. 300 [place] [phone] 04/02/2022 Clinical Communication Admitting/Central Scheduling 04/05/2022 Appointment Laboratory Medicine Daphne Rogers M.D. [address] [place] [phone] 04/05/2022 Appointment Radiology Daphne Rogers M.D. [address] [place] [phone] 04/05/2022 Ancillary Procedure Cardiovascular Disease Murray Rogers M.D. [address] [place] [phone] 04/05/2022 Appointment Radiology Daphne Rogers M.D. [address] [place] [phone] 04/05/2022 Diagnostic Pulmonary Medicine Daphne Rogers M.D. [address] [place] [phone] 04/05/2022 Appointment Cardiovascular Disease Daphne Rogers M.D. [address] [place] [phone] 04/06/2022 Comprehensive Visit Cardiovascular Disease Murray Rogers M.D. [address] [place] [phone] 04/06/2022 Comprehensive Visit Pulmonary Medicine Javier Dwyer APRN, C.N.P., D.N.P. [address] [place] [phone] 04/06/2022 Appointment Cardiovascular Disease Daphne Rogers M.D. [address] [place] [phone] 04/06/2022 [facility] [address] [place] [phone] 04/07/2022 Comprehensive Visit Cardiovascular Disease Daphne Rogers M.D. [address] [place] [phone] Inge Morris M.S., [facility] [address] [place] [phone] 04/12/2022 Appointment Cardiovascular Disease Daphne Rogers M.D. [address] [place] [phone] documented as of this encounter Procedures Procedure Name Priority Date/Time Associated Diagnosis Comme nts BASIC METABOLIC Routine 02/05/2022 9:32 AM Hyponatremia Result s for this PANEL, S/P MANAGER OF SELECTION AND ASSESSMENT procedure are i n the results section. documented in this encounter Results (ABNORMAL) Basic Metabolic Panel (02/05/2022 9:32 AM MANAGER OF SELECTION AND ASSESSMENT) P athologist Signature Potassium, P 4.8 3.6 - 5.2 02/05/2022 [place] mmol/L 12:08 PM MANAGER OF SELECTION AND ASSESSMENT Sodium, P 129 (L) 135 - 145 02/05/2022 [place] mmol/L 12:08 PM MANAGER OF SELECTION AND ASSESSMENT Chloride, P 91 (L) 98 - 107 02/05/2022 [place] mmol/L 12:08 PM MANAGER OF SELECTION AND ASSESSMENT Bicarbonate, P 26 22 - 29 02/05/2022 [place] mmol/L 12:07 PM MANAGER OF SELECTION AND ASSESSMENT Anion Gap, P 12 7 - 15 02/05/2022 [place] 12:08 PM MANAGER OF SELECTION AND ASSESSMENT BUN (Blood Urea 19 8 - 24 02/05/2022 [place] Nitrogen), P mg/dL 12:07 PM MANAGER OF SELECTION AND ASSESSMENT Creatinine 0.95 0.74 - 02/05/2022 [place] 1.35 mg/dL 12:07 PM MANAGER OF SELECTION AND ASSESSMENT Estimated GFR 86 >=60 02/05/2022 [place] (eGFR) mL/min/BSA 12:07 PM MANAGER OF SELECTION AND ASSESSMENT Comment: Estimated GFR calculated using the 2020 CKD_EPI creatinine equation. Calcium, Total, P 9.2 8.8 - 10.2 mg/dL 02/05/2022 12:0 7 PM MANAGER OF SELECTION AND ASSESSMENT [place] Glucose, P 88 70 - 140 mg/dL 02/05/2022 12:07 PM MANAGER OF SELECTION AND ASSESSMENT [place] Specimen Anatomical Collection Method Collection Time Receive d Time (Source) Location / / Volume Laterality Blood (Blood, 02/05/2022 9:32 AM 02/06/20 22 Venous) MANAGER OF SELECTION AND ASSESSMENT 11:23 AM MANAGER OF SELECTION AND ASSESSMENT Bernadine Carr P.A.-C. LAB BLOOD ADD-ON Performing Organization Address City/State/ZIP Code Phon e Number [facility] [address] [place] [address] [place] [address] System in [place] [address] documented in this encounter Visit Diagnoses Diagnosis Hyponatremia documented in this encounter Care Teams Tearer Press Clipping Relationship Specialty Start Date End Date Bernadine Carr P.A.-C. PCP - General Internal Medicine 01/19/[address] [place] [address] THALIA Cabrera [phone] documented as of this encounter
--- OUTSIDE RECORDS SUMMARY | 2022-03-04 16:17 | XMS_ITS | Encounter Summary ---
:1950 Author Organization [facility] Address [address] [place] [address] Care Team Providers Name Role Phone Bernadine Carr P.A.-C. Primary Care Provider [phone] Reason for Referral Outpatient (Routine) - Authorized Specialty Diagnoses / Procedures Referred By Contact Refer red To Contact Pulmonary Medicine Diagnoses Smoking Tobacco Use Personal History Davis Hughes M.D. [facility] [address] [place] [address] Referral ID Status Reason Start Date Expiration Date Visits V isits Requested Authorized [id number] Authorized 02/10/2022 02/09/2025 1 1 Scheduling Instructions Application Software Engineer will schedule. AND BLOWER OPERATOR MRI/CAT/PET Scan (Routine) - Authorized Specialty Diagnoses / Procedures Referred By Contact Refer red To Contact Radiology Diagnoses Smoking Tobacco Use Personal History Davis Hughes M.D. [facility] Procedures CT Chest Lung Cancer Screen Low Dose without IV Contrast [address] [place] [address] Referral ID Status Reason Start Date Expiration Date Visits V isits Requested Authorized [id number] Authorized 02/10/2022 02/10/2023 1 1 AND BLOWER OPERATOR Reason for Visit Reason Comments Lung Screening Outpatient (Routine) - Closed Specialty Diagnoses / Procedures Referred By Contact Refer red To Contact [facility]monary [facility] [place] [address] [place] [address] Referral ID Status Reason Start Date Expiration Date Visits Requ ested Visits Authorized [id number] Closed 02/09/2022 02/08/2025 1 1 Encounter Details Date Type Department Care Team Description 02/10/2022 Virtual Visit Division of Pulmonary Bernadine Carr P.A.-C. [address] [place] [phone] Smoking Tobacco Use Medicine in [place], Amina Canales R.N. [address] [place] [address] Personal History [place] (Primary Dx) [address] [place] [address] Social History Tobacco Use Types Packs/Day Years [...] 01/19/2022 relatives? How often do you attend sikhism or yazidi 1 to 4 times per year 01/19/2022 services? Do you belong to any clubs or organizations such Yes 01/19/2022 as sikhism groups, unions, fraternal or athletic groups, or [...] place to sleep or slept in a senior care (including now)? Education Answer Date Recorded What is the highest level of school Associate degree: onur fang, 01/19/2022 you have completed or the highest technical, or vocational p jacob degree you have received? Sex Assigned at Date Recorded Not on file documented as of this encounter Last Filed Vital Signs Vital Sign Reading Time Taken Comments Blood Pressure - - Pulse - - Temperature - - Respiratory Rate - - Oxygen Saturation - - Inhaled Oxygen Concentration - - Weight 91.6 kg (201 lb 15.1 oz) 02/10/2022 9:05 AM PUMP AND BLOWER OPERATOR Height 174.5 cm (5' 8.7) 02/10/2022 9:05 AM PUMP AND BLOWER OPERATOR Body Mass Index 30.08 02/10/2022 9:05 AM PUMP AND BLOWER OPERATOR documented in this encounter Progress Notes Amina Canales R.N. - 02/10/2022 9:00 AM CST [facility] Lung Screening [facility] Initial Eligibility Evaluation Carmelo Mckeon is a 71 y.o. male referred to the [facility] lung screening program for assessment to determine eligibility for enrollment. He was contacted today by phone and enrollment and exclusion criteria were reviewed. Patient reports that he quit smoking about 6 weeks ago. He has a 81.00 pack-year smoking history. Social History Tobacco Use Smoking status: Former Packs/day: 1.50 Years: 54.00 Pack years: 81 Types: Cigarettes Start date: 11/15/1967 Quit date: 12/30/2021 Years since quittin.1 Smokeless tobacco: Never Tobacco comments: long time smoker Exclusion criteria History of lung cancer within the past 5-years (still in active surveillance; consider screening after 5 years). No Poor lung function or other serious conditions that would not allow you to be a candidate for surgery if needed. No Need for continuous oxygen supplementation. No An unexplained weight loss of more than 15 lbs. in the prior 12 months/year. No Recent hemoptysis (coughing up blood). No A chest CT examination in the prior 12 months. No Current symptoms of an acute or resolving respiratory tract infection (best to reschedule at least 1month after symptom resolution). No Tammemagi 2011 ([id number]) Lung Cancer Risk Prediction Model Percent probability of lung cancer in 6 years calculated from today's answers = 7.659% Personal history of any cancer: no Final Eligibility Determination Patient meets inclusion criteria based on USPSTF guidelines. Exclusion criteria do not apply. Patient will be scheduled for [id number] visit as part of shared decision making process. USPSTF = 1 AND BLOWER OPERATOR documented in this encounter Plan of Treatment Upcoming Encounters Date Type Specialty Care Team Description 03/10/2022 Appointment Cardiovascular Disease Bernadine Carr P.A.-C. [address] [place] [address] 03/31/2022 Comprehensive Visit Cardiovascular Disease Melissa Lopez M.D. [address] [place] [address] 04/02/2022 Clinical Communication Admitting/Central Scheduling 04/05/2022 Appointment Laboratory Medicine Daphne Rogers M.D. [address] [place] [phone] 04/05/2022 Appointment Radiology Daphne Rogers M.D. [address] [place] [phone] 04/05/2022 Ancillary Procedure Cardiovascular Disease Murray Rogers M.D. [address] [place] [phone] 04/05/2022 Appointment Radiology Daphne Rogers M.D. [address] [place] [phone] 04/05/2022 Diagnostic Pulmonary Medicine Daphne Rogers M.D. [address] [place] [phone] 04/05/2022 Appointment Cardiovascular Disease Daphne Rogers M.D. [address] [place] [phone] 04/06/2022 Comprehensive Visit Cardiovascular Disease Murray Rogers M.D. [address] [place] [phone] 04/06/2022 Comprehensive Visit Pulmonary Medicine Javier Dwyer APRN, C.N.P., D.N.P. [address] [place] [phone] 04/06/2022 Appointment Cardiovascular Disease Daphne Rogers M.D. [address] [place] [phone] 04/06/2022 Appointment Radiology Davis Hughes M.D. [address] [place] [phone] 04/07/2022 Comprehensive Visit Cardiovascular Disease Daphne Rogers M.D. [address] [place] [phone] Inge Morris M.S., [facility] [address] [place] [phone] 04/12/2022 Appointment Cardiovascular Disease Daphne Rogers M.D. [address] [place] [phone] Scheduled Orders Name Type Priority Associated Diagnoses Order S chedule CT Chest Lung Imaging RAD - Routine (most Smoking Tobacco Use Expected: Cancer Screen Low inpatients and all Personal History 04/06/2022 Dose without IV outpatients) (Approximate ), Contrast Expires: 02/10/2023 Scheduled Referrals Name Type Priority Associated Diagnoses Order S chedule PUL Lung screening Outpatient Referral Routine Smoking Tobacco Use Expected: program only Personal History 02/10/2022 (Approximate), Expires: 05/13/2023 documented as of this encounter Visit Diagnoses Diagnosis Smoking Tobacco Use Personal History - P rimary documented in this encounter Care Teams Garment Tag Stringer Relationship Specialty Start Date End Date Bernadine Carr P.A.-C. PCP - General Internal Medicine 01/19/22 [address] [place] [phone] [facility] Dentist Dentistry 02/09/22 [address] [place] [address] documented as of this encounter
--- OUTSIDE RECORDS SUMMARY | 2022-03-04 16:17 | XMS_ITS | Encounter Summary ---
:[address] [facility] Address [address] [place] [address] Care Team Providers Name Role Phone Bernadine Carr P.A.-C. Primary Care Provider Reason for Visit Reason Comments Nurse Visit Outpatient (Routine) - Closed Specialty Diagnoses / Procedures Referred By Contact Refer red To Contact Bernadine Carr P .A.-C. [address] [phone] Referral ID Status Reason Start Date Expiration Date Visits Requ ested Visits Authorized [id number] Closed 01/21/2022 01/20/2025 1 1 Encounter Details Date Type Department Care Team Description 02/05/2022 Nurse Only Department of [facility] Humberto Carr P.A.-C. [address] [place] [phone] Nurse Visit Medicine, [facility], Wandy Funk, IrajPMillieNMillie [address], [place] [phone] [phone] Social History Tobacco Use Types Packs/Day Years [...] 01/19/2022 relatives? How often do you attend sikh or hoahaoism 1 to 4 times per year 01/19/2022 services? Do you belong to any clubs or organizations such Yes 01/19/2022 as sikh groups, unions, fraternal or athletic groups, or [...] place to sleep or slept in a care home (including now)? Education Answer Date Recorded What is the highest level of school Associate degree: onur fang, 01/19/2022 you have completed or the highest technical, or vocational p jacob degree you have received? Sex Assigned at Date Recorded Not on file documented as of this encounter Last Filed Vital Signs Vital Sign Reading Time Taken Comments Blood Pressure 146/93 02/05/2022 9:55 AM ART GLASS SETTER Pulse 65 02/05/2022 9:55 AM ART GLASS SETTER Temperature - - Respiratory Rate - - Oxygen Saturation - - Inhaled Oxygen Concentration - - Weight - - Height - - Body Mass Index - - documented in this encounter Progress Notes Wandy Funk, L.P.N. - 02/05/2022 10:00 AM CST Carmelo is seen today for a blood pressure visit as ordered by Bernadine Carr PA-C. Visit was conducted in clinic. Today's blood pressure reading and prior two readings: BP Readings from Last 3 Encounters: 02/05/22 (!) 146/93 01/29/22 (!) 163/107 01/21/22 (!) 154/95 . Medication list was reconciled, and patient is taking their blood pressure medication as prescribed. The patient reports no acute symptoms of hypertension Based on today's readings: The provider will be notified of today's visit and the patient was dismissed GLASS SETTER Madonna Ferraro - 02/05/2022 10:00 AM CST Noted. GLASS SETTER documented in this encounter Plan of Treatment Upcoming Encounters Date Type Specialty Care Team Description 03/10/2022 Appointment Cardiovascular Disease Bernadine Carr P.A.-C. [address] [place] [phone] 03/31/2022 Comprehensive Visit Cardiovascular Disease Melissa Lopez M.D. [address] [place] [phone] 04/02/2022 Clinical Communication Admitting/Central Scheduling 04/05/2022 Appointment Laboratory Medicine Daphne Rogers M.D. [address] [place] [phone] 04/05/2022 Appointment Radiology Daphne Rogers M.D. [address] [place] [phone] 04/05/2022 Ancillary Procedure Cardiovascular Disease Murray Rogers M.D. [address] [place] [phone] 04/05/2022 Appointment Radiology Daphne Rogers M.D. [address] [place] [phone] 04/05/2022 Diagnostic Pulmonary Medicine Daphne Rogers M.D. [address] [place] [phone] 04/05/2022 Appointment Cardiovascular Disease Daphne Rogers M.D. [address] [place] [phone] 04/06/2022 Comprehensive Visit Cardiovascular Disease Murray Rogers M.D. [address] [place] [phone] 04/06/2022 Comprehensive Visit Pulmonary Medicine Javier Dwyer APRN, C.N.P., D.N.P. [address] [place] [phone] 04/06/2022 Appointment Cardiovascular Disease Daphne Rogers M.D. [address] [place] [phone] 04/06/2022 Appointment Radiology Davis Hughes M.D. [address] [place] [phone] 04/07/2022 Comprehensive Visit Cardiovascular Disease Daphne Rogers M.D. [address] [place] [phone] Inge Morris M.S., [facility] [address] [place] [phone] 04/12/2022 Appointment Cardiovascular Disease Daphne Rogers M.D. [address] [place] [phone] documented as of this encounter Visit Diagnoses Diagnosis Hypertension Essential Primary - Primary documented in this encounter Care Teams Manager Quality Relationship Specialty Start Date End Date Bernadine Carr P.A.-C. PCP - General Internal Medicine 01/19/[address] [place] [phone] documented as of this encounter
--- OUTSIDE RECORDS SUMMARY | 2022-03-04 16:17 | XMS_ITS | Encounter Summary ---
:1950 Author Organization [facility] Address [address] [place] [address] Care Team Providers Name Role Phone Bernadine Carr P.A.-C. Primary Care Provider [phone] Reason for Referral Outpatient (Routine) - Authorized Specialty Diagnoses / Procedures Referred By Contact Refer red To Contact Hernan Corral M.B.B.S., [facility] [address] [phone] Referral ID Status Reason Start Date Expiration Date Visits V isits Requested Authorized [id number] Authorized 02/09/2022 02/08/2025 1 1 Scheduling Instructions Last AWV 02/09/22. Schedule next AWV on/after 02/10/2023. C oordinate with labs if appropriate. IVING ROOM CLERK Reason for Visit Reason Comments Medicare Annual Wellness Visit Subsequent Outpatient (Routine) - Closed Specialty Diagnoses / Procedures Referred By Contact Refer red To Contact Bernadine Carr P .A.-C. [address] [phone] Referral ID Status Reason Start Date Expiration Date Visits Requ ested Visits Authorized [id number] Closed 02/08/2022 02/07/2025 1 1 Encounter Details Date Type Department Care Team Description 02/09/2022 Office Visit Department of Family Humberto Carr P.A.-C. [address] [facility] [place] [address] Annual Medicare Medicine, [place] Marcy Adan R.N. Examination Return Clinic, in [place], (Prima ry Dx) [place] [address] [facility] [place] [address] Social History Tobacco Use Types Packs/Day Years Used Date Smoking Tobacco: Former Cigarettes 1 54 10/27 - 12/30/2021 Smokeless Tobacco: Never [...] 01/19/2022 relatives? How often do you attend quaker or voodoo 1 to 4 times per year 01/19/2022 services? Do you belong to any clubs or organizations such Yes 01/19/2022 as quaker groups, unions, fraternal or athletic groups, or [...] place to sleep or slept in a assisted (including now)? Education Answer Date Recorded What is the highest level of school Associate degree: onur fang, 01/19/2022 you have completed or the highest technical, or vocational p jacob degree you have received? Sex Assigned at Date Recorded Not on file documented as of this encounter Patient Instructions Patient InstructionsMarcy Adan R.N. - 02/09/2022 9:15 AM CST Thank you for coming in today! Consider: - Adding a variety of fruits and vegetables to your diet and/or limiting processed foods - De-cluttering to minimize fall risks, creating clear paths in your home - Moving items places high on a shelf to a lower location - Placing grab bars in your bathroom for your shower/tub and/or toilet - Reviewing and completing an Advanced Health Care Directive and bringing in a copy to scan for yourhealth record - Starting an exercise routine, start slow. Example: walking 10-15 minutes 3 to 4 times a week and increasing to 30 minutes 3 to 4 times a week; can be done in a mall or large store if outside is not an option Continue: - Eating a healthy diet; a variety of fruits and vegetables, minimizing processed foods and eating out - Keeping your home free of clutter, minimizing fall risks - Remaining physically active, following an exercise routine if you have one, or being up and movingfrequently throughout the day - Remaining active in your community; group activities, volunteering - Staying up to date with your provider, keeping annual exams or follow ups, communicating health changes IVING ROOM CLERK documented in this encounter Progress Notes Marcy Adan R.N. - 02/09/2022 9:15 AM CST HEALTH ASSESSMENT Reason For Visit Patient presents with Medicare Annual Wellness Visit Subsequent The following portions of the patient's history were reviewed and updated as appropriate:allergies, medications, family history, medical history, problem list, social history, surgical history and careteam/suppliers. VITALS: Blood Pressure: 132/88 (02/09/2022 9:04 AM) Temperature: 36.4 ??C (02/09/2022 8:51 AM) Temp Source: Temporal (02/09/2022 8:51 AM) Pulse Rate: 65 (02/09/2022 9:04 AM) Resp Rate: 20 (02/09/2022 8:51 AM) BMI (Calculated): 30.5 kg/m?? (01/21/2022 8:13 AM) SpO2: 98 % (Room air, at rest) (01/21/2022 8:29 AM) Height: 174.5 cm (01/21/2022 8:13 AM) Weight: 91.6 kg (02/09/2022 8:51 AM) Depression Screening PHQ-2 Score: 0 Mini Cog Cognitive function assessed by direct observation without concerns. Current Opioid Use: None FUNCTIONAL/HOME ENVIRONMENT History of falls: Have you fallen within the last year or do you fear you might fall?: No (01/21/2022 8:00 AM) Do you use an assisted device to walk? (Walker, cane, wheelchair, crutch): No (01/21/2022 8:00 AM) Today, do you feel any of the following? Weak, dizzy, shaky, or unsteady?: No (01/21/2022 8:00 AM) Have you taken any medication within the last 6 hours which may make you feel drowsy? Such as sleep,pain, or anxiety medication: No (01/21/2022 8:00 AM) Home Safety: Does your home have throw rugs, poor lighting or slippery bathtub/shower? No Does your home have grab bars in the bathroom, handrails on the stairs and steps? Yes Has handrails on staircase, not in bathroom Does your home have functional smoke and carbon monoxide alarms? Yes Health Risk Assessment (HRA) and Social Determinants of Health (SDOH) questionnaires were reviewed and the following concerns were prioritized to be addressed during this visit: No concerns identified. Advanced Directive: Advance Directives: Not Received Advanced directive information given. After Visit Summary (AVS) reviewed and patient declined printed copy IVING ROOM CLERK documented in this encounter Plan of Treatment Upcoming Encounters Date Type Specialty Care Team Description 03/10/2022 Appointment Cardiovascular Disease Bernadine Carr P.A.-C. [address] [place] [address] 03/31/2022 Comprehensive Visit Cardiovascular Disease Melissa Lopez M.D. 300 [place] [address] 04/02/2022 Clinical Communication Admitting/Central Scheduling 04/05/2022 Appointment Laboratory Medicine Daphne Rogers M.D. [address] [place] [phone] 04/05/2022 Appointment Radiology Daphne Rogers M.D. [address] [place] [phone] 04/05/2022 Ancillary Procedure Cardiovascular Disease Murray Rogers M.D. [address] [place] [phone] 04/05/2022 Appointment Radiology Daphne Rogers M.D. [address] [place] [phone] 04/05/2022 Diagnostic Pulmonary Medicine Daphne Rogers M.D. [address] [place] [phone] 04/05/2022 Appointment Cardiovascular Disease Daphne Rogers M.D. [address] [place] [phone] 04/06/2022 Comprehensive Visit Cardiovascular Disease Murray Rogers M.D. [address] [place] [phone] 04/06/2022 Comprehensive Visit Pulmonary Medicine Javier Dwyer APRN, C.N.P., D.N.P. [address] [place] [phone] 04/06/2022 Appointment Cardiovascular Disease Daphne Rogers M.D. [address] [place] [phone] 04/06/2022 Appointment Radiology Davis Hughes M.D. [address] [place] [phone] 04/07/2022 Comprehensive Visit Cardiovascular Disease Daphne Rogers M.D. [address] [place] [phone] Inge Morris M.SMillie, [facility] [address] [place] [phone] 04/12/2022 Appointment Cardiovascular Disease Daphne Rogers M.D. [address] [place] [phone] Scheduled Referrals Name Type Priority Associated Diagnoses [facility] Outpatient Referral Routine Ex pected: visit (clinic) - 02/10/2023 [facility] Region; (Approxim ate), Medicare Annual Expires: Wellness 02/09/2025 documented as of this encounter Visit Diagnoses Diagnosis Annual Medicare Examination Return - Katerin wero documented in this encounter Care Teams Confectionery Laboratory Manager Relationship Specialty Start Date End Date Bernadine Carr P.A.-C. PCP - General Internal Medicine 01/19/22 [address] [facility] [place] [phone] [facility] Dentist Dentistry 02/09/22 [address] [place] [address] documented as of this encounter
--- OUTSIDE RECORDS SUMMARY | 2022-03-04 16:17 | XMS_ITS | Encounter Summary ---
:1950 [facility] Address [address] [place] [address] Care Team Providers Name Role Phone Bernadine Carr P.A.-C. Primary Care Provider Encounter Details Date Type Department Care Team Description 02/08/2022 Orders Only [facility] SELF TEST AUJAMAL Carr, Screening Cancer Colon [address] YASHIRA [place] [address] 300 [facility] [phone] [place] [address] Social History Tobacco Use Types [...] 01/19/2022 relatives? How often do you attend gnosticist or bahai 1 to 4 times per year 01/19/2022 services? Do you belong to any clubs or organizations such Yes 01/19/2022 as gnosticist groups, unions, fraternal or athletic groups, or [...] place to sleep or slept in a [place] [facility] (including now)? Education Answer Date Recorded What [...] Appointment Cardiovascular Disease Bernadine Carr P.A.-C. 300 [place] [address] 03/31/2022 Comprehensive Visit Cardiovascular Disease Melissa Lopez M.D. 300 [place] [address] 04/02/2022 Clinical Communication Admitting/Central Scheduling 04/05/2022 Appointment Laboratory Medicine Daphne Rogers M.D. [address] [place] [phone] 04/05/2022 Appointment Radiology Daphne Rogers M.D. [address] [place] [phone] 04/05/2022 Ancillary Procedure Cardiovascular Disease Murray Rogers M.D. [address] [place] [phone] 04/05/2022 Appointment Radiology Daphne Rogers M.D. [address] [place] [phone] 04/05/2022 Diagnostic Pulmonary Medicine Daphne Rogers M.D. [address] [place] [phone] 04/05/2022 Appointment Cardiovascular Disease Daphne Rogers M.D. [address] [place] [phone] 04/06/2022 Comprehensive Visit Cardiovascular Disease Murray Rogers M.D. [address] [place] [phone] 04/06/2022 Comprehensive Visit Pulmonary Medicine Javier Dwyer APRN, C.N.P., D.N.P. [address] [place] [phone] 04/06/2022 Appointment Cardiovascular Disease Daphne Rogers M.D. [address] [place] [phone] 04/06/2022 Appointment Radiology Davis Hughes M.D. [address] [place] [phone] 04/07/2022 Comprehensive Visit Cardiovascular Disease Daphne Rogers M.D. [address] [place] [phone] Inge Morris M.S., [facility] [place] [address] [place] [phone] 04/12/2022 Appointment Cardiovascular Disease Daphne Rogers M.D. [address] [place] [phone] Scheduled Orders Name Type Priority Associated Diagnoses Order S pankaj Knowles-Sent Out Lab Lab Routine Screening Cancer C shereen Expected: 02/22/2022 (Approximate), Expires: 05/11/2023 documented as of this encounter Visit Diagnoses Diagnosis Screening Cancer Colon documented in this encounter Care Teams Monument Installer Relationship Specialty Start Date End Date Bernadine Carr P.A.-C. PCP - General Internal Medicine 01/19/[address] [place] [phone] documented as of this encounter
--- OUTSIDE RECORDS SUMMARY | 2022-03-04 16:17 | XMS_ITS | Encounter Summary ---
:1950 Author Organization [facility] Address [address] [place] [address] Care Team Providers Name Role Phone Bernadine Carr P.A.-C. Primary Care Provider Encounter Details Date Type Department Care Team Description 02/22/2022 Hospital Encounter Department of Josefina Carr Laboratory Medicine Nicola Colindres Primary in [place] [address] [facility] [address] [facility] [phone] Social History Tobacco Use Types Packs/Day Years [...] 01/19/2022 relatives? How often do you attend alevism or catholic 1 to 4 times per year 01/19/2022 services? Do you belong to any clubs or organizations such Yes 01/19/2022 as alevism groups, unions, fraternal or athletic groups, or [...] place to sleep or slept in a residential (including now)? Education Answer Date Recorded What [...] tablet by 0 01/02/2008 mouth daily. omega 1-xcp-wbf-fish oil Take 1 capsule by 0 09/2007 [...] Appointment Cardiovascular Disease Bernadine Carr P.A.-C. [address] [place] [phone] 03/31/2022 Comprehensive Visit Cardiovascular Disease Melissa Lopez M.D. 300 [place] [address] 04/02/2022 Clinical Communication Admitting/Central Scheduling 04/05/2022 Appointment Laboratory Medicine Daphne Rogers M.D. [address] [place] [phone] 04/05/2022 Appointment Radiology Daphne Rogers M.D. [address] [place] [phone] 04/05/2022 Ancillary Procedure Cardiovascular Disease Murray Rogers M.D. [address] [place] [phone] 04/05/2022 Appointment Radiology Daphne Rogers M.D. [address] [place] [phone] 04/05/2022 Diagnostic Pulmonary Medicine Daphne Rogers M.D. [address] [place] [phone] 04/05/2022 Appointment Cardiovascular Disease Daphne Rogers M.D. [address] [place] [phone] 04/06/2022 Comprehensive Visit Cardiovascular Disease Murray Rogers M.D. [address] [place] [phone] 04/06/2022 Comprehensive Visit Pulmonary Medicine Javier Dwyer , CLINICAL TEAM MANAGER, C.N.P., D.N.P. [address] [place] [phone] 04/06/2022 Appointment Cardiovascular Disease Daphne Rogers M.D. [address] [place] [phone] 04/06/2022 Appointment Radiology JackDavis conn M.D. [address] [place] [phone] 04/07/2022 Comprehensive Visit Cardiovascular Disease Daphne Rogers M.D. [address] [place] [phone] Inge Morris M.S., [facility] [address] [place] [phone] 04/12/2022 Appointment Cardiovascular Disease Daphne Rogers M.D. [address] [place] [phone] (work) documented as of this encounter Procedures Procedure Name Priority Date/Time Associated Diagnosis Comme nts BASIC METABOLIC Routine 02/22/2022 12:44 Hypertension Results for this PANEL, S/P PM LIME PULLER Essential Primary procedure are in the results section. documented in this encounter Results (ABNORMAL) Basic Metabolic Panel (02/22/2022 12:44 PM LIME PULLER) P athologist Signature Potassium, P 4.1 3.6 - 5.2 02/22/2022 [place] mmol/L 4:21 PM LIME PULLER Sodium, P 127 (L) 135 - 145 02/22/2022 [place] mmol/L 4:21 PM LIME PULLER Chloride, P 88 (L) 98 - 107 02/22/2022 [place] mmol/L 4:21 PM LIME PULLER Bicarbonate, P 27 22 - 29 02/22/2022 [place] mmol/L 4:21 PM LIME PULLER Anion Gap, P 12 7 - 15 02/22/2022 [place] 4:21 PM LIME PULLER BUN (Blood Urea 11 8 - 24 02/22/2022 [place] Nitrogen), P mg/dL 4:21 PM LIME PULLER Creatinine 0.84 0.74 - 02/22/2022 [place] 1.35 mg/dL 4:21 PM LIME PULLER Estimated GFR >90 >=60 02/22/2022 [place] (eGFR) mL/min/BSA 4:21 PM LIME PULLER Comment: Estimated GFR calculated using the 2020 CKD_EPI creatinine equation. Calcium, Total, P 9.2 8.8 - 10.2 mg/dL 02/22/2022 4:21 PM LIME PULLER [place] Glucose, P 108 70 - 140 mg/dL 02/22/2022 4:21 PM LIME PULLER O DANK Specimen Anatomical Collection Method Collection Time Receive d Time (Source) Location / / Volume Laterality Blood (Blood, 02/22/2022 12:44 02/22/2022 4:21 Venous) PM LIME PULLER PM LIME PULLER Bernadine Carr P.A.-C. LAB BLOOD ADD-ON Performing Organization Address City/State/ZIP Code Phon e Number [facility]- [address] [place] [address] [place] [address] System in [place] [address] [facility] documented in this encounter Visit Diagnoses Diagnosis Hypertension Essential Primary documented in this encounter Care Teams Newspaper Deliverer Relationship Specialty Start Date End Date Bernadine Carr P.A.-C. PCP - General Internal Medicine 01/19/22 [address] [place] [phone] [facility] Dentist Dentistry 02/09/22 [address] [place] [address] documented as of this encounter
--- OUTSIDE RECORDS SUMMARY | 2022-03-04 16:17 | XMS_ITS | Encounter Summary ---
:1950 Author Organization [facility] Address [address] [place] [address] Care Team Providers Name Role Phone Bernadine Carr P.A.-C. Primary Care Provider [phone] Encounter Details Date Type Department Care Team Description 02/13/2022 Orders Only Department of Melany Carr ( Primary Community Internal Anup Colindres Dx) Medicine in [address] [phone] [place], [place] [phone] (Work) [phone] Social History Tobacco Use Types Packs/Day Years [...] 01/19/2022 relatives? How often do you attend rastafarian or orthodoxy 1 to 4 times per year 01/19/2022 services? Do you belong to any clubs or organizations such Yes 01/19/2022 as rastafarian groups, unions, fraternal or athletic groups, or [...] Appointment Cardiovascular Disease Bernadine Carr P.A.-C. [address] [place] [address] 03/31/2022 Comprehensive Visit Cardiovascular Disease Melissa Lopez M.D. 300 [place] [phone] 04/02/2022 Clinical Communication Admitting/Central Scheduling 04/05/2022 Appointment Laboratory Medicine Daphne Rogers M.D. [address] [place] [phone] 04/05/2022 Appointment Radiology Daphne Rogers M.D. [address] [place] [phone] 04/05/2022 Ancillary Procedure Cardiovascular Disease Murray Rogers M.D. [address] [place] [phone] 04/05/2022 Appointment Radiology Daphne Rogers M.D. [address] [place] [phone] 04/05/2022 Diagnostic Pulmonary Medicine Daphne Rogers M.D. [address] [place] [phone] 04/05/2022 Appointment Cardiovascular Disease Daphne Rogers M.D. [address] [place] [phone] 04/06/2022 Comprehensive Visit Cardiovascular Disease Murray Rogers M.D. [address] [place] [phone] 04/06/2022 Comprehensive Visit Pulmonary Medicine Javier Dwyer APRN, C.N.P., D.N.P. [address] [place] [phone] 04/06/2022 Appointment Cardiovascular Disease Daphne Rogers M.D. [address] [place] [phone] 04/06/2022 Appointment Radiology Davis Hughes M.D. [address] [place] [phone] 04/07/2022 Comprehensive Visit Cardiovascular Disease Daphne Rogers M.D. [address] [place] [phone] Inge Morris M.S., [facility] [address] [place] [phone] 04/12/2022 Appointment Cardiovascular Disease Daphne Rogers M.D. [address] [place] [phone] Scheduled Orders Name Type Priority Associated Diagnoses Order S chedule Basic Metabolic Panel Lab Routine Hyponatremia Expect ed: 05/16/2022 (Approximate), Expires: 05/16/2023 documented as of this encounter Visit Diagnoses Diagnosis Hyponatremia - Primary documented in this encounter Care Teams Bar Back Relationship Specialty Start Date End Date Bernadine Carr P.A.-C. PCP - General Internal Medicine 01/19/[address] [place] [phone] [facility] Dentist Dentistry 02/09/22 [address] [place] [address] documented as of this encounter
--- OUTSIDE RECORDS SUMMARY | 2022-03-04 16:17 | XMS_ITS | Encounter Summary ---
:1950 Author Organization [facility] Address [address] [place] [address] Care Team Providers Name Role Phone Bernadine Carr P.A.-C. Primary Care Provider Reason for Referral Outpatient (Routine) - Closed Specialty Diagnoses / Procedures Referred By Contact Refer red To Contact Bernadine Carr P .A.-C. [facility] [address] [address] Referral ID Status Reason Start Date Expiration Date Visits Requ ested Visits Authorized [id number] Closed 02/09/2022 02/08/2025 1 1 RMATION MANAGER Reason for Visit Reason Comments Follow-up Follow up. AWV with Sarah t readings from home: (02/06 -) (02/07- ) Outpatient (Routine) - Closed Specialty Diagnoses / Procedures Referred By Contact Refer red To Contact [facility] Internal Bernadine Carr [facility] [place] [address] [place] [address] Referral ID Status Reason Start Date Expiration Date Visits Requ ested Visits Authorized [id number] Closed 01/21/2022 01/20/2025 1 1 Encounter Details Date Type Department Care Team Description 02/09/2022 Office Visit Department of [place], Hypertension E ssential Primary (Primary Dx); Community Internal Prabha ColindresAMillie Zimmerman. Hyponatremia; Medicine in [address] Pain Low Back Unspecified; [place], [place] Screening Cancer Colon; [address] [facility] [address] Screening Abdominal Aortic Aneurysm [place], [place] [phone] [address] (Work) [phone] Social History Tobacco Use Types Packs/Day Years Used Date Smoking Tobacco: Former Cigarettes 1 54 10/27 - 12/30/2021 Smokeless Tobacco: Never Tobacco Cessation: Counseling Given: Yes Comments: long time smoker Alcohol Use Standard [...] 01/19/2022 relatives? How often do you attend hinduism or muslim 1 to 4 times per year 01/19/2022 services? Do you belong to any clubs or organizations such Yes 01/19/2022 as hinduism groups, unions, fraternal or athletic groups, or [...] minutes do you engage in exercise at is 10 min 01/19/2022 level? Stress Answer [...] or the highest technical, or vocational p [facility] degree you have received? Sex Assigned at Date Recorded Not on file documented as of this encounter Last Filed Vital Signs Vital Sign Reading Time Taken Comments Blood Pressure 132/88 02/09/2022 9:04 AM INFORMATION MANAGER Pulse 65 02/09/2022 9:04 AM INFORMATION MANAGER Temperature 36.4 ??C (97.5 ??F) 02/09/2022 8:51 AM INFORMATION MANAGER Respiratory Rate 20 02/09/2022 8:51 AM INFORMATION MANAGER Oxygen Saturation - - Inhaled Oxygen Concentration - - Weight 91.6 kg (201 lb 13.3 oz) 02/09/2022 8:51 AM INFORMATION MANAGER Height - - Body Mass Index 30.07 01/21/2022 8:13 AM CDT documented in this encounter Progress Notes Bernadine Carr P.A.-C. - 02/09/2022 9:00 AM CST SUBJECTIVE CHIEF COMPLAINT/REASON FOR VISIT Chief Complaint Patient presents with Follow-up Follow up. AWV with RN Brought readings from home: (02/06 -200/124) (02/07- 196/125) HISTORY OF PRESENT ILLNESS Carmelo Mckeon is a pleasant 71 y.o. male with a PMHx of hypertension and atrial fibrillation who presents to the clinic today for follow up. He brings in his blood pressure readings from home which show readings of 190-200 systolic and 120- diastolic. He has not been having any symptoms of chest pain, shortness of breath, headache, or blurry vision at home with high readings. He is tolerating the lisinopril well at 10 mg daily. His blood pressure in clinic today ranges from 130-160 systolic. He feels he tweaked his back approximately 1 month ago that has caused pain in his right leg. He hasbeen going to the chiropractor three times per week since this happened. He describes a pain that extends from his lower back to his ankle. The pain in his back is most bothersome to him today versus the pain in his leg. He describes the pain is his leg as occurring near the end of the day. He had similar symptoms two years ago. He denies fever, chills, bowel or bladder dysfunction, history of trauma, and leg weakness. He has been putting ice on his back. He is inquiring about Cologuard. He typically gets his colonoscopies every 5 years but was told he could switch to 10 years after his previous colonoscopy. He thinks he had this colonoscopy 6 or 7 years ago. He has a history of colon polyps. He has received his flu vaccine this year. He is due for tetanus. The following portions of the patient's history were reviewed and updated as appropriate: allergies,current medications, family history, medical history, social history, surgical history, and problem list. Pertinent positive ROS are listed above in HPI. 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 Two tablets daily, Disp: , Rfl: lisinopriL (PRINIVIL,ZESTRIL) 5 mg tablet, Take 2 tablets (10 mg total) by mouth daily., Disp: 30 tablet, Rfl: 5 metoprolol succinate (TOPROL-XL) 50 mg 24 hr tablet, Take 1 tablet by mouth 2 (two) times a day., Disp: , Rfl: multivitamin tablet, Take 1 tablet by mouth daily., Disp: , Rfl: omega 1-tof-roo-fish oil 1,000 mg (120 mg-180 mg) capsule, Take 1 capsule by mouth daily., Disp: , Rfl: omeprazole (PriLOSEC) [address] capsule, Take 20 mg by mouth daily., Disp: , Rfl: rivaroxaban (XARELTO) 20 mg tablet, Take 20 mg by mouth daily., Disp: , Rfl: lisinopriL (PRINIVIL,ZESTRIL) 20 mg tablet, Take 1 tablet (20 mg total) by mouth daily., Disp: 30 tablet, Rfl: 5 OBJECTIVE VITAL SIGNS Vitals: 02/09/22 0904 BP: 132/88 Pulse: 65 Resp: Temp: PHYSICAL EXAMINATION General: Well-nourished, well-developed 71 y.o. in no apparent distress. Awake, alert, age appropriate. HEENT: Head is normocephalic, atraumatic. Conjunctivae and sclerae are clear. Cardiovascular: Regular rate and rhythm without murmurs. Lungs: Clear to auscultation bilaterally with no adventitious sounds Skin: Warm, pink, and dry. Neurologic: Alert and oriented x3. Bilateral patellar and Achilles tendon DTRs 2+/4+. Strength and tone normal in upper and lower extremities. ASSESSMENT / PLAN IMPRESSION/REPORT/PLAN: #1 Hypertension Essential Primary Blood pressure in clinic today ranges from 130-160 systolic. Patient's home readings are more elevated than this but we are not sure of the accuracy of his device. Increase lisinopril to 20 mg daily. Follow-up with nurse blood pressure check in 2 weeks. He has a scheduled BMP in three days to check onhyponatremia. #2 Hyponatremia This appears to be chronic. I do not have lab records from 9925-1087 but patient was hyponatremic [id number] at 127. Most recent sodium level is 129. He has a repeat BMP scheduled in 3 days. #3 Pain Low Back Mechanical He is having non-specific low back pain ongoing for 1 month with occasional radiation into left leg.He denies red flag symptoms of back pain. We discussed use of heat and ice on his back as well as Tylenol or Voltaren gel. He plans to continue seeing his chiropractor 3 times per week. We discussed a referral to physical therapy if symptoms persist. #4 Screening Cancer Colon He is asking about Cologuard. He would not be a candidate for this given history of colon polyps. Hebelieves he will be due for his next colonoscopy around age 74 based on 10 year follow up recommended at previous colonoscopy performed at an outside facility. #5 Screening Abdominal Aortic Aneurysm He has a smoking history of 54 pack years. He quit approximately 1 month ago. He is due for AAA screening and I encouraged him to schedule this today. #6 Lung Cancer Screening Program #7 Personal History Tobacco Abuse He would be a candidate for our lung cancer screening program. I put through a referral for this. - US Aorta; Future; Expected date: 02/09/2022 #7 Need Vaccine Immunization He is due for a tetanus vaccine and plans to schedule this at his local pharmacy. Other orders - Community Internal Medicine office visit (clinic) - lisinopriL (PRINIVIL,ZESTRIL) 20 mg tablet; Take 1 tablet (20 mg total) by mouth daily., Starting Tue02/09/2022, Normal - Primary Care nurse visit (clinic) - [facility]; BP check; BP check w/ home device; Future; Expected date: 02/23/2022 - PUL Lung Cancer screening program referral - initial and annual; Future; Expected date: 02/09/2022 - Tdap: Zrmrhwc-ogibcqahci-bsjzhhtfl pertussis vaccine (7 years and older) - Primary Care nurse visit (clinic) - [facility]; Medicare Annual Wellness; Future; Expected date: 02/12/2022 If symptoms worsen or do not improve, patient is instructed to seek further medical attention. All questions have been answered. Patient demonstrated understanding and verbalized agreement with the plan. Bernadine Carr P.A.-C. RMATION MANAGER documented in this encounter Plan of Treatment Upcoming Encounters Date Type Specialty Care Team Description 03/10/2022 Appointment Cardiovascular Disease Bernadine Carr P.A.-C. [address] [facility] [place] [phone] 03/31/2022 Comprehensive Visit Cardiovascular Disease Melissa Lopez M.D. [address] [facility] [place] [phone] 04/02/2022 Clinical Communication Admitting/Central Scheduling 04/05/2022 Appointment Laboratory Medicine Daphne Rogers M.D. [address] [place] [phone] 04/05/2022 Appointment Radiology Daphne Rogers M.D. [address] [place] [phone] 04/05/2022 Ancillary Procedure Cardiovascular Disease Murray Rogers M.D. [address] [place] [phone] 04/05/2022 Appointment Radiology Daphne Rogers M.D. [address] [place] [phone] 04/05/2022 Diagnostic Pulmonary Medicine Daphne Rogers M.D. [address] [place] [phone] 04/05/2022 Appointment Cardiovascular Disease Daphne Rogers M.D. [address] [place] [phone] 04/06/2022 Comprehensive Visit Cardiovascular Disease Murray Rogers M.D. [address] [place] [phone] 04/06/2022 Comprehensive Visit Pulmonary Medicine Javier Dwyer APRN, C.N.P., D.N.P. [address] [place] [phone] 04/06/2022 Appointment Cardiovascular Disease Daphne Rogers M.D. [address] [place] [phone] 04/06/2022 Appointment Radiology Davis Hughes M.D. [address] [place] [phone] 04/07/2022 Comprehensive Visit Cardiovascular Disease Daphne Rogers M.D. [address] [place] [phone] Inge Morris M.S., [facility] [address] [place] [phone] 04/12/2022 Appointment Cardiovascular Disease Daphne Rogers M.D. [address] [place] [phone] Scheduled Referrals Name Type Priority Associated Diagnoses [facility] Outpatient Referral Routine Ex pected: visit (clinic) - 02/23/2022 [facility] Region; (Approxim ate), BP check; BP check Expires: w/ home device 05/12/2023 documented as of this encounter Visit Diagnoses Diagnosis Hypertension Essential Primary - Primary Hyponatremia Pain Low Back Unspecified Screening Cancer Colon Screening Abdominal Aortic Aneurysm documented in this encounter Care Teams Cv/Cvn Cv Tsc System Operator Relationship Specialty Start Date End Date Bernadine Carr P.A.-C. PCP - General Internal Medicine 01/19/[address] [place] [phone] [facility] Dentist Dentistry 02/09/22 [address] [place] [address] documented as of this encounter
--- OUTSIDE RECORDS SUMMARY | 2022-03-04 16:17 | XMS_ITS | Encounter Summary ---
:1950 Author Organization [facility] Address [address] [place] [address] Care Team Providers Name Role Phone Bernadine Carr P.A.-C. Primary Care Provider Encounter Details Date Type Department Care Team Description 02/05/2022 Orders Only Department of [place], Hypertension [facility] Internal Anup Colindres Primary (Primary Dx) Medicine in [address] [address] [place], [place] [phone] [address] (Work) [phone] Social History Tobacco Use Types Packs/Day Years [...] 01/19/2022 relatives? How often do you attend synagogue or scientology 1 to 4 times per year 01/19/2022 services? Do you belong to any clubs or organizations such Yes 01/19/2022 as synagogue groups, unions, fraternal or athletic groups, or [...] place to sleep or slept in a nursing home (including now)? Education Answer Date Recorded [...] Appointment Cardiovascular Disease Bernadine Carr P.A.-C. [address] [place] [phone] 03/31/2022 Comprehensive Visit Cardiovascular Disease Melissa Lopez M.D. [address] [place] [phone] 04/02/2022 Clinical Communication Admitting/Central Scheduling 04/05/2022 Appointment Laboratory Medicine Daphne Rogers M.D. [address] [place] [phone] 04/05/2022 Appointment Radiology Daphne Rogers M.D. [address] [place] [phone] 04/05/2022 Ancillary Procedure Cardiovascular Disease Murray Rogres M.D. [address] [place] [phone] 04/05/2022 Appointment Radiology Daphne Rogers M.D. [address] [place] [phone] 04/05/2022 Diagnostic Pulmonary Medicine Daphne Rogers M.D. [address] [place] [phone] 04/05/2022 Appointment Cardiovascular Disease Daphne Rogers M.D. [address] [place] [phone] 04/06/2022 Comprehensive Visit Cardiovascular Disease Murray Rogers M.D. [address] [place] [phone] 04/06/2022 Comprehensive Visit Pulmonary Medicine Javier Dwyer APRN, C.N.P., D.N.P. [address] [place] [phone] 04/06/2022 Appointment Cardiovascular Disease Daphne Rogers M.D. [address] [place] [phone] 04/06/2022 Appointment Radiology Davis Hughes M.D. [address] [place] [phone] 04/07/2022 Comprehensive Visit Cardiovascular Disease Daphne Rogers M.D. [address] [place] [phone] Inge Morris M.S., [facility] [address] [place] [phone] 04/12/2022 Appointment Cardiovascular Disease Daphne Rogers M.D. [address] [place] [phone] documented as of this encounter Results (ABNORMAL) Basic Metabolic Panel (02/22/2022 12:44 PM CARE MGR) P athologist Signature Potassium, P 4.1 3.6 - 5.2 02/22/2022 [place] mmol/L 4:21 PM CARE MGR Sodium, P 127 (L) 135 - 145 02/22/2022 [place] mmol/L 4:21 PM CARE M[facility] Chloride, P 88 (L) 98 - 107 02/22/2022 [place] mmol/L 4:21 PM CARE MGR Bicarbonate, P 27 22 - 29 02/22/2022 [place] mmol/L 4:21 PM CARE M[facility] Anion Gap, P 12 7 - 15 02/22/2022 [place] 4:21 PM CARE M[facility] BUN (Blood Urea 11 8 - 24 02/22/2022 [place] Nitrogen), P mg/dL 4:21 PM CARE M[facility] Creatinine 0.84 0.74 - 02/22/2022 [place] 1.35 mg/dL 4:21 PM CARE MGR Estimated GFR >90 >=60 02/22/2022 [place] (eGFR) mL/min/BSA 4:21 PM CARE MGR Comment: Estimated GFR calculated using the 2020 CKD_EPI creatinine equation. Calcium, Total, P 9.2 8.8 - 10.2 mg/dL 02/22/2022 4:21 PM CARE MGR [place] Glucose, P 108 70 - 140 mg/dL 02/22/2022 4:21 PM CARE MGR O DANK Specimen Anatomical Collection Method Collection Time Receive d Time (Source) Location / / Volume Laterality Blood (Blood, 02/22/2022 12:44 02/22/2022 4:21 Venous) PM CARE MGR PM CARE MGR Bernadine Carr P.A.-C. LAB BLOOD ADD-ON Performing Organization Address City/State/ZIP Code Phon e Number [facility] [address] [place] [address] [place] [address] System in [place] [address] documented in this encounter Visit Diagnoses Diagnosis Hypertension Essential Primary - Primary documented in this encounter Care Teams Farmworker Relationship Specialty Start Date End Date Bernadine Carr P.A.-C. PCP - General Internal Medicine 01/19/22 300 [facility] [place] [phone] [facility] Dentist Dent[facility] 02/09/22 [address] [place] [address] documented as of this encounter
--- OUTSIDE RECORDS SUMMARY | 2022-03-04 16:17 | XMS_ITS | Encounter Summary ---
:1950 Author Organization [facility] Address [address] [place] [address] Care Team Providers Name Role Phone Bernadine Carr P.A.-C. Primary Care Provider [phone] Reason for Referral Outpatient (Routine) - Closed Specialty Diagnoses / Procedures Referred By Contact Refer red To Contact [facility] [place] [address] [place] [address] Referral ID Status Reason Start Date Expiration Date Visits Requ ested Visits Authorized [id number] Closed 02/09/2022 02/08/2025 1 1 S SALES COUNTERPERSON Encounter Details Date Type Department Care Team Description 02/09/2022 Orders Only Department of [facility] Bernadine Carr , Internal Medicine in [place], [place] 300 [facility] [address] [place] [phone] (Wo rk) Social History Tobacco Use Types Packs/Day Years [...] 01/19/2022 relatives? How often do you attend advent or protestant 1 to 4 times per year 01/19/2022 services? Do you belong to any clubs or organizations such Yes 01/19/2022 as advent groups, unions, fraternal or athletic groups, or [...] place to sleep or slept in a long-term (including now)? Education Answer Date Recorded What is the highest level of school Associate degree: onur fang, 01/19/2022 you have completed or the highest technical, or vocational p [facility] degree you have received? Sex Assigned at Date Recorded Not on file documented as of this encounter Plan of Treatment Upcoming Encounters Date Type Specialty Care Team Description 03/10/2022 Appointment Cardiovascular Disease Bernadine Carr P.A.-C. [address] [place] [phone] 03/31/2022 Comprehensive Visit Cardiovascular Disease Melissa Lopez M.D. [address] [place] [phone] 04/02/2022 Clinical Communication Admitting/Central Scheduling 04/05/2022 Appointment Laboratory Medicine Daphne Rogers M.D. [address] [place] [phone] 04/05/2022 Appointment Radiology Daphne Rogers M.D. [address] [place] [phone] 04/05/2022 Ancillary Procedure Cardiovascular Disease Murray Rogers M.D. [address] [place] [phone] 04/05/2022 Appointment Radiology Daphne Rogers M.D. [address] [place] [phone] 04/05/2022 Diagnostic Pulmonary Medicine Daphne Rogers M.D. [address] [place] [phone] 04/05/2022 Appointment Cardiovascular Disease Daphne Rogers M.D. [address] [place] [phone] 04/06/2022 Comprehensive Visit Cardiovascular Disease Murray Rogers M.D. [address] [place] [phone] 04/06/2022 Comprehensive Visit Pulmonary Medicine Javier Dwyer APRN, C.N.P., D.N.P. [address] [place] [phone] 04/06/2022 Appointment Cardiovascular Disease Daphne Rogers M.D. [address] [place] [phone] 04/06/2022 Appointment Radiology Davis Hughes M.D. [address] [place] [phone] 04/07/2022 Comprehensive Visit Cardiovascular Disease Daphne Rogers M.D. [address] [place] [phone] Inge Morris M.S., [facility] [address] [place] [phone] 04/12/2022 Appointment Cardiovascular Disease Daphne Rogers M.D. [address] [place] [phone] Scheduled Referrals Name Type Priority Associated Diagnoses Order S chedule PUL Lung Cancer Outpatient Referral Routine Expec michele: screening program 02/09/2022 referral - initial (Approxim ate), and annual Expires: 05/12/2023 documented as of this encounter Visit Diagnoses Not on filedocumented in this encounter Care Teams Junior Programmer Analyst Relationship Specialty Start Date End Date Bernadine Carr P.A.-C. PCP - General Internal Medicine 01/19/22 [address] [place] [phone] [facility] 02/09/22 [address] [place] [address] documented as of this encounter
--- OUTSIDE RECORDS SUMMARY | 2022-03-04 16:17 | XMS_ITS | Encounter Summary ---
:1950 Author Organization [facility] Address [address] [place] [address] Care Team Providers Name Role Phone Bernadine Carr P.A.-C. Primary Care Provider [phone] Reason for Visit Reason Comments Nurse Visit Outpatient (Routine) - Closed Specialty Diagnoses / Procedures Referred By Contact Refer red To Contact Bernadine Carr P .A.-C. [facility] [address] [place] [address] Referral ID Status Reason Start Date Expiration Date Visits Requ ested Visits Authorized [id number] Closed 02/09/2022 02/08/2025 1 1 Encounter Details Date Type Department Care Team Description 02/22/2022 Nurse Only Department of [facility] Humberto Carr P.A.-C. [address] [place] [phone] Nurse Visit Medicine, [facility], Wandy Funk, LMillieP.NMillie [address] [place] [address] in [facility] [address] [place] [address] Social History Tobacco Use Types Packs/Day Years Used Date Smoking Tobacco: Former Cigarettes 1.5 54 / - 12/30/2021 Smokeless Tobacco: Never Tobacco Cessation: [...] 01/19/2022 relatives? How often do you attend temple or scientologist 1 to 4 times per year 01/19/2022 services? Do you belong to any clubs or organizations such Yes 01/19/2022 as temple groups, unions, fraternal or athletic groups, or [...] to sleep or slept in a senior living (including now)? Education Answer Date Recorded What is the highest level of school Associate degree: onur fang, 01/19/2022 you have completed or the highest technical, or vocational p dieterram degree you have received? Sex Assigned at Date Recorded Not on file documented as of this encounter Last Filed Vital Signs Vital Sign Reading Time Taken Comments Blood Pressure 121/81 02/22/2022 1:00 PM EBD SPECIAL EDUCATION TEACHER Pulse 89 02/22/2022 1:00 PM EBD SPECIAL EDUCATION TEACHER Temperature - - Respiratory Rate - - Oxygen Saturation - - Inhaled Oxygen Concentration - - Weight - - Height - - Body Mass Index - - documented in this encounter Progress Notes Wandy Funk, L.P.N. - 02/22/2022 1:15 PM CST Carmelo is seen today for a blood pressure visit as ordered by Bernadine Carr PA-C. Visit was conducted in clinic. Today's blood pressure reading and prior two readings: BP Readings from Last 3 Encounters: 02/22/22 121/81 02/09/22 132/88 02/05/22 (!) 146/93 . Medication list was reconciled, and patient is taking their blood pressure medication as prescribed. The patient reports no acute symptoms of hypertension Based on today's readings: The provider will be notified of today's visit and the patient was dismissed SPECIAL EDUCATION TEACHER documented in this encounter Plan of Treatment Upcoming Encounters Date Type Specialty Care Team Description 03/10/2022 Appointment Cardiovascular Disease Bernadine Carr P.A.-C. [address] [place] [phone] 03/31/2022 Comprehensive Visit Cardiovascular Disease Melissa Lopez M.D. 300 [place] [address] 04/02/2022 Clinical Communication Admitting/Central Scheduling 04/05/2022 Appointment Laboratory Medicine Daphne Rogers M.D. [address] [place] [phone] 04/05/2022 Appointment Radiology Daphne Rogers M.D. [address] [place] [phone] 04/05/2022 Ancillary Procedure Cardiovascular Disease Murray Rogers M.D. [address] [place] [phone] 04/05/2022 Appointment Radiology Daphne Rogers M.D. [address] [place] [phone] 04/05/2022 Diagnostic Pulmonary Medicine Daphne Rogers M.D. [address] [place] [phone] 04/05/2022 Appointment Cardiovascular Disease Daphne Rogers M.D. [address] [place] [phone] 04/06/2022 Comprehensive Visit Cardiovascular Disease Murray Rogers M.D. [address] [place] [phone] 04/06/2022 Comprehensive Visit Pulmonary Medicine Javier Dwyer APRN, C.N.P., D.N.P. [address] [place] [phone] 04/06/2022 Appointment Cardiovascular Disease Daphne Rogers M.D. [address] [place] [phone] 04/06/2022 Appointment Radiology Davis Hughes M.D. [address] [place] [phone] 04/07/2022 Comprehensive Visit Cardiovascular Disease Daphne Rogers M.D. [address] [place] [phone] Inge Morris M.S., [facility] [address] [place] [phone] 04/12/2022 Appointment Cardiovascular Disease Daphne Rogers M.D. [address] [place] [phone] documented as of this encounter Visit Diagnoses Diagnosis Hypertension Essential Primary - Primary documented in this encounter Care Teams Manager Embalmer Funeral Director Relationship Specialty Start Date End Date Bernadine Carr P.A.-C. PCP - General Internal Medicine 01/19/22 [address] [place] [address] Professional Dental Group Dentist Dentistry 02/09/22 [address] [place] [address] documented as of this encounter
--- OUTSIDE RECORDS SUMMARY | 2022-03-04 16:18 | XMS_ITS | Encounter Summary ---
:1950 Author Organization [facility] Address [address] [place] [address] Care Team Providers Name Role Phone Bernadine Carr P.A.-C. Primary Care Provider Encounter Details Date Type Department Care Team Description 01/21/2022 Hospital Encounter Department of Laboratory [facility] in [place] 300 [facility] [address] [place] [phone] Social History Tobacco Use Types Packs/Day Years [...] 01/19/2022 relatives? How often do you attend samaritan or synagogue 1 to 4 times per year 01/19/2022 services? Do you belong to any clubs or organizations such Yes 01/19/2022 as samaritan groups, unions, fraternal or athletic groups, or [...] tablet by 0 01/02/2008 mouth daily. omega 9-ahv-wst-fish oil Take 1 capsule by 0 /09/2007 1,000 mg (120 mg-180 mg) mouth daily. capsule omeprazole (PriLOSEC) 20 Take 20 mg by mouth [address] capsule daily. rivaroxaban (XARELTO) 20 Take 20 mg by mouth 0 mg tablet daily. lisinopriL Take 1 tablet (5 mg 30 tablet 5 01/21/202201/29 (PRINIVIL,ZESTRIL) 5 mg total) by mouth tablet daily. documented as of this encounter Plan of Treatment Upcoming Encounters Date Type Specialty Care Team Description 03/10/2022 Appointment Cardiovascular Disease Bernadine Carr P.A.-C. [address] [place] [phone] 03/31/2022 Comprehensive Visit Cardiovascular Disease Melissa Lopez M.D. 300 [place] [phone] 04/02/2022 Clinical Communication Admitting/Central Scheduling 04/05/2022 Appointment Laboratory Medicine Daphne Rogers M.D. [address] [place] [phone] 04/05/2022 Appointment Radiology Daphne Rogers M.D. [address] [place] [phone] 04/05/2022 Ancillary Procedure Cardiovascular Disease Murray Rogers M.D. [address] [place] [phone] 04/05/2022 Appointment Radiology Daphne Rogers M.D. [address] [place] [phone] 04/05/2022 Diagnostic Pulmonary Medicine Daphne Rogers M.D. [address] [place] [phone] 04/05/2022 Appointment Cardiovascular Disease Daphne Rogers M.D. [address] [place] [phone] 04/06/2022 Comprehensive Visit Cardiovascular Disease Murray Rogers M.D. [address] [place] [phone] 04/06/2022 Comprehensive Visit Pulmonary Medicine Javier Dwyer APRN, C.N.P., D.N.P. [address] [place] [phone] 04/06/2022 Appointment Cardiovascular Disease Daphne Rogers M.D. [address] [place] [phone] 04/06/2022 [facility] [address] [place] [phone] 04/07/2022 Comprehensive Visit Cardiovascular Disease Daphne Rogers M.D. [address] [place] [phone] Inge Morris M.S., [facility] [address] [place] [phone] 04/12/2022 Appointment Cardiovascular Disease Daphne Rogers M.D. [address] [place] [phone] documented as of this encounter Procedures Procedure Name Priority Date/Time Associated Diagnosis Comme nts BASIC METABOLIC Routine 01/21/2022 9:40 AM Hyponatremia Result s for this PANEL, S/P CDT procedure are i n the results section. documented in this encounter Results (ABNORMAL) Basic Metabolic Panel (01/21/2022 9:40 AM CDT) P athologist Signature Potassium, P 5.1 3.6 - 5.2 01/21/2022 [place] mmol/L 11:37 AM CDT Sodium, P 130 (L) 135 - 145 01/21/2022 [place] mmol/L 11:37 AM CDT Chloride, P 93 (L) 98 - 107 01/21/2022 [place] mmol/L 11:37 AM CDT Bicarbonate, P 27 22 - 29 01/21/2022 [place] mmol/L 11:37 AM CDT Anion Gap, P 10 7 - 15 01/21/2022 [place] 11:37 AM CDT BUN (Blood Urea 17 8 - 24 01/21/2022 [place] Nitrogen), P mg/dL 11:37 AM CDT Creatinine 0.81 0.74 - 01/21/2022 [place] 1.35 mg/dL 11:37 AM CDT Estimated GFR >90 >=60 01/21/2022 [place] (eGFR) mL/min/BSA 11:37 AM CDT Comment: Estimated GFR calculated using the 2020 CKD_EPI creatinine equation. Calcium, Total, P 9.6 8.8 - 10.2 mg/dL 01/21/2022 11:3 7 AM CDT [place] Glucose, P 93 70 - 140 mg/dL 01/21/2022 11:37 AM CDT [place] Specimen Anatomical Collection Method Collection Time Receive d Time (Source) Location / / Volume Laterality Blood (Blood, 01/21/2022 9:40 AM 01/22/20 22 Venous) CDT 11:00 AM CDT Bernadine Carr P.A.-C. LAB BLOOD ADD-ON Performing Organization Address City/State/ZIP Code Phon e Number [facility] [address] [place] [address] [place] [address] System in [place] [address] documented in this encounter Visit Diagnoses Diagnosis Hyponatremia documented in this encounter Care Teams Baggage Agent Supervisor Relationship Specialty Start Date End Date Bernadine Carr P.A.-C. PCP - General Internal Medicine 01/19/[address] [place] [address] THALIA Cabrera [phone] documented as of this encounter
--- OUTSIDE RECORDS SUMMARY | 2022-03-04 16:18 | XMS_ITS | Encounter Summary ---
:1950 Author Organization [facility] Address [address] [place] [address] Care Team Providers Name Role Phone Bernadine Carr P.A.-C. Primary Care Provider [phone] Encounter Details Date Type Department Care Team Description 01/13/2022 [facility] E[facility]U MAYERS M.D. [address] [place] [address] [place] [address] [phone] (Wo rk) Social History Tobacco Use Types Packs/Day Years Used Date Smoking Tobacco: Heavy Smoker Alcohol Habits Answer Date Recorded How often [...] 01/19/2022 relatives? How often do you attend anabaptism or confucianist 1 to 4 times per year 01/19/2022 services? Do you belong to any clubs or organizations such Yes 01/19/2022 as anabaptism groups, unions, fraternal or athletic groups, or [...] slept in a senior living (including now)? Sex Assigned at Date Recorded Not on file documented as of this encounter Plan of Treatment Upcoming Encounters Date Type Specialty Care Team Description 03/10/2022 Appointment Cardiovascular Disease Bernadine Carr P.A.-C. 300 [place] [phone] 03/31/2022 Comprehensive Visit Cardiovascular Disease Melissa Lopez M.D. [address] [place] [phone] 04/02/2022 Clinical Communication Admitting/Central Scheduling 04/05/2022 Appointment Laboratory Medicine Daphne Rogers M.D. [address] [place] [phone] 04/05/2022 Appointment Radiology Daphne Rogers M.D. [address] [place] [phone] 04/05/2022 Ancillary Procedure Cardiovascular Disease Murray Rogers M.D. [address] [place] [phone] 04/05/2022 Appointment Radiology Daphne Rogers M.D. [address] [place] [phone] 04/05/2022 Diagnostic Pulmonary Medicine Daphne Rogers M.D. [address] [place] [phone] 04/05/2022 Appointment Cardiovascular Disease Daphne Rogers M.D. [address] [place] [phone] 04/06/2022 Comprehensive Visit Cardiovascular Disease Murray Rogers M.D. [address] [place] [phone] 04/06/2022 Comprehensive Visit Pulmonary Medicine Javier Dwyer APRN, C.N.P., D.N.P. [address] [place] [phone] 04/06/2022 Appointment Cardiovascular Disease Daphne Rogers M.D. [address] [place] [phone] 04/06/2022 Appointment Radiology Davis Hughes M.D. [address] [place] [phone] 04/07/2022 Comprehensive Visit Cardiovascular Disease Daphne Rogers M.D. [address] [place] [phone] Inge Morris M.S., [facility] [address] [place] [phone] 04/12/2022 Appointment Cardiovascular Disease Daphne Rogers M.D. [address] [place] [phone] documented as of this encounter Visit Diagnoses Not on filedocumented in this encounter Care Teams Chlorination Operator Relationship Specialty Start Date End Date Deanovic, Bernadine, P.A.-C. PCP - General Internal Medicine 01/19/[address] [place] [address] Carmen MUKESHTHALIA GOETZ [phone] documented as of this encounter
--- OUTSIDE RECORDS SUMMARY | 2022-03-04 16:18 | XMS_ITS | Encounter Summary ---
:1950 Author Organization [facility] Address [address] [place] [address] Care Team Providers Name Role Phone Bernadine Carr P.A.-C. Primary Care Provider Reason for Referral Outpatient (Routine) - Closed Specialty Diagnoses / Procedures Referred By Contact Refer red To Contact Diagnoses Hyponatremia Bernadine Carr P.A.-C. [facility] Procedures ECG 12 Lead [address] [place] [address] Referral ID Status Reason Start Date Expiration Date Visits Requ ested Visits Authorized [id number] Closed 01/21/2022 01/21/2023 1 1 Reason for Visit Outpatient (Routine) - Closed Specialty Diagnoses / Procedures Referred By Contact Refer red To Contact Diagnoses Hyponatremia Bernadine Carr P.A.-C. [facility] Procedures ECG [address] [place] [address] Referral ID Status Reason Start Date Expiration Date Visits Requ ested Visits Authorized [id number] Closed 01/21/2022 01/21/2023 1 1 Encounter Details Date Type Department Care Team Description 01/21/2022 Hospital Encounter Department of Laboratory Bernadine Carr Hyponatremia Medicine [place] [address] [place] [place] [phone] Social History Tobacco Use Types Packs/Day Years [...] 01/19/2022 relatives? How often do you attend confucianist or gnosticist 1 to 4 times per year 01/19/2022 services? Do you belong to any clubs or organizations such Yes 01/19/2022 as confucianist groups, unions, fraternal or athletic groups, or [...] or the highest technical, or vocational p rogram degree you have received? Sex Assigned at [...] tablet by 0 01/02/2008 mouth daily. omega 1-bgo-luo-fish oil Take 1 capsule by 0 09/2007 [...] Appointment Cardiovascular Disease Bernadine Carr P.A.-C. [address] [place] [address] 03/31/2022 Comprehensive Visit Cardiovascular Disease Melissa Lopez M.D. 300 [place] [phone] 04/02/2022 Clinical Communication Admitting/Central Scheduling 04/05/2022 Appointment Laboratory Medicine Daphne Rogers M.D. [address] [place] [phone] 04/05/2022 Appointment Radiology Daphne Rogers M.D. [address] [place] [phone] 04/05/2022 Ancillary Procedure Cardiovascular Disease Murray Rogers M.D. [address] [place] [phone] 04/05/2022 Appointment Radiology Daphne Rogers M.D. [address] [place] [phone] 04/05/2022 Diagnostic Pulmonary Medicine Daphne Rogers M.D. [address] [place] [phone] 04/05/2022 Appointment Cardiovascular Disease Daphne Rogers M.D. [address] [place] [phone] 04/06/2022 Comprehensive Visit Cardiovascular Disease Murray Rogers M.D. [address] [place] [phone] 04/06/2022 Comprehensive Visit Pulmonary Medicine Javier Dwyer APRN, C.N.P., D.N.P. [address] [place] [phone] 04/06/2022 Appointment Cardiovascular Disease Daphne Rogers M.D. [address] [place] [phone] 04/06/2022 Appointment Radiology Davis Hughes M.D. [address] [place] [phone] 04/07/2022 Comprehensive Visit Cardiovascular Disease Daphne Rogers M.D. [address] [place] [phone] Inge Morris M.S., [facility] [address] [place] [phone] 04/12/2022 Appointment Cardiovascular Disease Daphne Rogers M.D. [address] [place] [phone] documented as of this encounter Procedures Procedure Name Priority Date/Time Associated Diagnosis Comme nts ECG Routine 01/21/2022 9:45 AM Hyponatremia Results f or this CDT procedure are i n the results section . documented in this encounter Results ECG 12 Lead (01/21/2022 9:45 AM CDT) P athologist Signature Ventricular Rate 62 BPM MUSE ECG/Min IA Interval 242 ms MUSE QRSD Interval 98 ms MUSE QT Interval 390 ms MUSE QTC Interval 395 ms MUSE P [place] 55 degrees MUSE R [place] 17 degrees MUSE T Wave [place] 39 degrees MUSE Specimen Anatomical Collection Method Collection Time Receive d Time (Source) Location / / Volume Laterality 01/21/2022 9:45 AM 9:49 CDT AM CDT Impressions MUSE - 01/21/2022 9:49 AM CDT Sinus rhythm with sinus arrhythmia with 1st degree A-V block Cannot rule out Anteroseptal infarct When compared with ECG of 02-MAY-2013 07 :12, Premature atrial complexes are no longer present IA interval has increased Reviewed by ROBERTO French [...] Premature atrial complexes are no longer present IA interval has increased Reviewed by ROBERTO French Bernadine Carr P.A.-C. ECG ORDERABLES Performing Organization Address City/State/ZIP Code Phon e Number MUSE MUSE NA documented in this encounter Visit Diagnoses Diagnosis Hyponatremia documented in this encounter Care Teams Computer Forensics Examiner Relationship Specialty Start Date End Date Bernadine Carr P.A.-C. PCP - General Internal Medicine 01/19/[address] [place] [address] THALIA Cabrera [phone] documented as of this encounter
--- OUTSIDE RECORDS SUMMARY | 2022-03-04 16:18 | XMS_ITS | Encounter Summary ---
:1950 Author Organization [facility] Address [address] [place] [address] Care Team Providers Name Role Phone Bernadine Carr P.A.-C. Primary Care Provider Encounter Details Date Type Department Care Team Description 02/01/2022 Clinical Communication Department of [facility] Anup Colindres Medicine in [address] [address] [place], [place] [phone] [address] (Work) [phone] Social History Tobacco Use Types Packs/Day Years [...] 01/19/2022 relatives? How often do you attend episcopalian or pentecostal 1 to 4 times per year 01/19/2022 services? Do you belong to any clubs or organizations such Yes 01/19/2022 as episcopalian groups, unions, fraternal or athletic groups, or [...] this encounter Miscellaneous Notes Telephone Encounter - Cyndie Lopez L.PMillieN. - 02/01/2022 8:17 AM CST SUBJECTIVE CHIEF COMPLAINT / REASON FOR CALL No chief complaint on file. PLAN The following information was provided: Increase Lisinopril from 5 mg to 10 mg and Bernadine will check BP and labs when patient is here for an appointment on 02/09 Information/Education: patient/caller able to teach back The following references were used: other Provider Bernadine Carr PA-C HANDISE STOCKER documented in this encounter Plan of Treatment Upcoming Encounters Date Type Specialty Care Team Description 03/10/2022 Appointment Cardiovascular Disease Bernadine Carr P.A.-C. [address] [place] [phone] 03/31/2022 Comprehensive Visit Cardiovascular Disease Melissa Lopez M.D. 300 [place] [phone] 04/02/2022 Clinical Communication Admitting/Central Scheduling 04/05/2022 Appointment Laboratory Medicine Daphne Rogers M.D. [address] [place] [phone] 04/05/2022 Appointment Radiology Daphne Rogers M.D. [address] [place] [phone] 04/05/2022 Ancillary Procedure Cardiovascular Disease Murray Rogers M.D. [address] [place] [phone] 04/05/2022 Appointment Radiology Daphne Rogers M.D. [address] [place] [phone] 04/05/2022 Diagnostic Pulmonary Medicine Daphne Rogers M.D. [address] [place] [phone] 04/05/2022 Appointment Cardiovascular Disease Daphne Rogers M.D. [address] [place] [phone] 04/06/2022 Comprehensive Visit Cardiovascular Disease Murray Rogers M.D. [address] [place] [phone] 04/06/2022 Comprehensive Visit Pulmonary Medicine Javier Dwyer APRN, C.N.P., D.N.P. [address] [place] [phone] 04/06/2022 Appointment Cardiovascular Disease Daphne Rogers M.D. [address] [place] [phone] 04/06/2022 Appointment Radiology Davis Hughes M.D. [address] [place] [phone] 04/07/2022 Comprehensive Visit Cardiovascular Disease Daphne Rogers M.D. [address] [place] [phone] Inge Morris M.S., [facility] [address] [place] [phone] 04/12/2022 Appointment Cardiovascular Disease Daphne Rogers M.D. [address] [place] [phone] documented as of this encounter Visit Diagnoses Not on filedocumented in this encounter Care Teams Senior Director Of [employer] Relationship Specialty Start Date End Date Bernadine Carr P.A.-C. PCP - General Internal Medicine 01/19/[address] [place] [address] [place] [phone] documented as of this encounter
--- OUTSIDE RECORDS SUMMARY | 2022-03-04 16:18 | XMS_ITS | Encounter Summary ---
:1950 Author Organization [facility] Address [address] [place] [address] Care Team Providers Name Role Phone Unavailable Primary Care Provider Unavailable Encounter Details Date Type Department Care Team Description 12/30/2021 [facility] Tomas Lopez Atrial Fibrillation AND CLINICS Jemma Cheek Unspecified (Primary [address] [place] [id number] [phone] Social History Tobacco Use Types Packs/Day Years [...] 01/19/2022 relatives? How often do you attend moravian or latter-day 1 to 4 times per year 01/19/2022 services? Do you belong to any clubs or organizations such Yes 01/19/2022 as moravian groups, unions, fraternal or athletic groups, or [...] place to sleep or slept in a halfway (including now)? Sex Assigned at Date Recorded Not on file documented as of this encounter Plan of Treatment Upcoming Encounters Date Type Specialty Care Team Description 03/10/2022 Appointment Cardiovascular Disease Bernadine Carr P.A.-C. [address] [place] [address] 03/31/2022 Comprehensive Visit Cardiovascular Disease Melissa Lopez M.D. [address] [place] [address] 04/02/2022 Clinical Communication Admitting/Central Scheduling 04/05/2022 Appointment Laboratory Medicine Daphne Rogers M.D. [address] [place] [phone] 04/05/2022 Appointment Radiology Daphne Rogers M.D. [address] [place] [phone] 04/05/2022 Ancillary Procedure Cardiovascular Disease Murray Rogers M.D. [address] [place] [phone] 04/05/2022 Appointment Radiology Daphne Rogers M.D. [address] [place] [phone] 04/05/2022 Diagnostic Pulmonary Medicine Daphne Rogers M.D. [address] [place] [phone] 04/05/2022 Appointment Cardiovascular Disease Daphne Rogers M.D. [address] [place] [phone] 04/06/2022 Comprehensive Visit Cardiovascular Disease Murray Rogers M.D. [address] [place] [phone] 04/06/2022 Comprehensive Visit Pulmonary Medicine Javier Dwyer APRN, C.N.P., D.N.P. [address] [place] [phone] 04/06/2022 Appointment Cardiovascular Disease Daphne Rogers M.D. [address] [place] [phone] 04/06/2022 Appointment Radiology JackthDavis conn M.D. [address] [place] [phone] 04/07/2022 Comprehensive Visit Cardiovascular Disease Daphne Rogers M.D. [address] [place] [phone] Inge Morris M.S., [facility] [place] [address] [place] [phone] 04/12/2022 Appointment Cardiovascular Disease Daphne Rogers M.D. [address] [place] [phone] documented as of this encounter Visit Diagnoses Diagnosis Atrial Fibrillation Unspecified - Primar y documented in this encounter
--- OUTSIDE RECORDS SUMMARY | 2022-03-04 16:18 | XMS_ITS | Encounter Summary ---
:1950 Author Organization [facility] Address [address] [place] [address] Care Team Providers Name Role Phone Bernadine Ward P.A.-C. Primary Care Provider Reason for Referral Outpatient (Routine) - Authorized Specialty Diagnoses / Procedures Referred By Contact Refer red To Contact Diagnoses Atherosclerotic Heart Disease [place] Coronary Artery With Other Forms Angina Pectoris (Stable Angina/Angina Of Exertion) (HCC) Atrial Fibrillation Unspecified Cardiomyopathy Hypertrophic (HCC) Bernadine Ward [facility] [place] [facility] Procedures Echo Transthoracic (TTE) P.A.-C. [address] [place] [address] Referral ID Status Reason Start Date Expiration Date Visits V isits Requested Authorized [id number] Authorized 01/21/2022 01/21/2023 1 1 Outpatient (Routine) - Authorized Specialty Diagnoses / Procedures Referred By Contact Refer red To Contact Diagnoses Atherosclerotic Heart Disease [place] Coronary Artery With Other Forms Angina Pectoris (Stable Angina/Angina Of Exertion) (HCC) Atrial Fibrillation Unspecified Cardiomyopathy Hypertrophic (HCC) Bernadine Ward [facility] [place] [facility] Procedures ECG Heart rhythm monitor (Holter) P.A.-C. [address] [place] [address] Referral ID Status Reason Start Date Expiration Date Visits V isits Requested Authorized [id number] Authorized 01/21/2022 01/21/2023 1 1 Outpatient (Routine) - Authorized Specialty Diagnoses / Referred By Contact Referred To Contact Procedures Cardiovascular Diseases / Diagnoses Atherosclerotic Heart Disease [place] Coronary Artery With Other Forms Angina Pectoris (Stable Angina/Angina Of Exertion) ([facility]) Bernadine Ward [facility] Cardiovascular Disease P.A.-C. [address] [place] [address] Referral ID Status Reason Start Date Expiration Date Visits V isits Requested Authorized [id number] Authorized 01/21/2022 01/21/2023 1 1 Outpatient (Routine) - Closed Specialty Diagnoses / Procedures Referred By Contact Refer red To Contact Community Internal Bernadine Ward [facility] Medicine P.A.-CMillie [address] [place] [phone] Referral ID Status Reason Start Date Expiration Date Visits Requ ested Visits Authorized [id number] Closed 01/21/2022 01/20/2025 1 1 Outpatient (Routine) - Closed Specialty Diagnoses / Procedures Referred By Contact Refer red To Contact Bernadine Ward P .A.-C. [address] [phone] Referral ID Status Reason Start Date Expiration Date Visits Requ ested Visits Authorized [id number] Closed 01/21/2022 01/20/2025 1 1 Outpatient (Routine) - Closed Specialty Diagnoses / Procedures Referred By Contact Refer red To Contact Diagnoses Hyponatremia Bernadine Ward P.A.-Damon. [facility] Procedures ECG 12 Lead [address] [place] [phone] Referral ID Status Reason Start Date Expiration Date Visits Requ ested Visits Authorized [id number] Closed 01/21/2022 01/21/2023 1 1 Reason for Visit Reason Comments Establish Care Discuss medications - ramez spivey was placed on hydrochlorothiazide, it depleted his sodium and he f ainted, also at one point was on two different blood pressure med ications which brought his heart rate down into the 40's and he was hos pitalized, also last week had another episode where his heart rate was in the 40's and his blood pressure was 60/40 - history of a str armen - would like a referral to a pharmacy clerk Appointment Request (Routine) - Closed Specialty Diagnoses / Procedures Referred By Contact Refer red To Contact Community Internal Medicine Referral ID Status Reason Start Date Expiration Date Visits Requ ested Visits Authorized [id number] Closed 01/19/2022 01/19/2023 1 1 Encounter Details Date Type Department Care Team Description 01/21/2022 Office Visit Department of [place] Hyponatremia ( Primary Dx); Community Internal Bernadine, Syncope; Medicine in P.A.-C. Hypertension Essential Primary; [place], [place] 300 [facility] Atherosclerotic Heart Disease [place] Cor onary Artery With Other Forms Angina Pectoris (Stable Angina/Angina Of Exertion) ([facility]); 300 [facility] [place], [place] Atrial Fibrillation Unspecif ied; [place] [address] Cardiomyopathy Hypertrophic ([facility]) [id number] Social History Tobacco Use Types Packs/Day Years Used Date Smoking Tobacco: Former Cigarettes 1.5 50 Quit : 01/03/2022 Smokeless Tobacco: Never Tobacco Cessation: Counseling Given: Not Answered Alcohol Habits Answer Date Recorded How often [...] 01/19/2022 relatives? How often do you attend hoahaoism or jew 1 to 4 times per year 01/19/2022 services? Do you belong to any clubs or organizations such Yes 01/19/2022 as hoahaoism groups, unions, fraternal or athletic groups, or [...] Sign Reading Time Taken Comments Blood Pressure 154/95 01/21/2022 8:29 AM CDT Pulse 60 01/21/2022 8:29 AM CDT Temperature 36.1 ??C (96.9 ??F) 01/21/2022 8:13 AM CDT Respiratory Rate 16 01/21/2022 8:13 AM CDT Oxygen Saturation 98% 01/21/2022 8:29 AM Room air, a t rest CDT Inhaled Oxygen - - Concentration Weight 92.8 kg (204 lb 11.2 01/21/2022 8:13 AM oz) CDT Height 174.5 cm (5' 8.7) 01/21/2022 8:13 AM CDT Body Mass Index 30.49 01/21/2022 8:13 AM CDT documented in this encounter Patient Instructions Patient InstructionsBernadine Ward P.A.-C. - 01/21/2022 8:30 AM CDT EKG and lab today. Follow up with nurse BP check and lab in 2 weeks. Follow up in primary care in 1 month. documented in this encounter Progress Notes Bernadine Ward P.A.-C. - 01/21/2022 8:30 AM CDT SUBJECTIVE CHIEF COMPLAINT/REASON FOR VISIT Chief Complaint Patient presents with Establish Care Discuss medications - patient was placed on hydrochlorothiazide, it depleted his sodium and he fainted, also at one point was on two different blood pressure medications which brought his heart rate down into the 40's and he was hospitalized, also last week had another episode where his heart rate was in the 40's and his blood pressure was 60/40 - history of a stroke - would like a referral to a pharmacy clerk HISTORY OF PRESENT ILLNESS Carmelo Mckeon is a pleasant 71 y.o. male with a PMHx of CVA (2018) on Xarelto, hypertension, hypertrophic cardiomyopathy, coronary artery disease, and hyperlipidemia who presents to the clinic today to establish care. His previously received his care at [facility] but would like to switch his care to [facility]. He would like to be seen by [facility]. He was seen at [facility] on December 30 for an annual exam and was told he needs to see a Loan Officer Assistant. He previously saw Cardiology in 2018 at [facility]. He has not had follow up. Hestates he was never called for an appointment and therefore never returned. He started HCTZ on December 30 with his previous primary care provider and has had hyponatremia since starting this medication. He was seen on January 15 for a syncopal episode that prompted an ambulance visit. This was attributed to his HCTZ. He has a blood pressure device at home. He occasionally takes his blood pressure at home and reportshigh readings similar to his clinic readings today. He is a former smoker. He quit 3 weeks ago. He smoked for 50 years. He smoked 1-2 packs per day. He has had no previous surgeries. Him and his are hoping to snowbird in [place] this year. The following portions of the patient's history were reviewed and updated as appropriate: allergies,current medications, family history, medical history, social history, surgical history, and problem list. Pertinent positive ROS are listed above in HPI. Patient Active Problem List Diagnosis Gastroesophageal Reflux Disease NOS Cardiomyopathy Obstructive Hypertrophic (HCC) Hypertension Essential Primary Hyperlipidemia Atherosclerotic Heart Disease [place] Coronary Artery With Other Forms Angina Pectoris (Stable Angina/Angina Of Exertion) (HCC) Atrial Fibrillation Unspecified ALLERGIES/CONTRAINDICATIONS No Known Allergies CURRENT MEDICATIONS Current [...] by mouth daily., Disp: , Rfl: omega 8-qbi-obq-fish oil 1,000 mg (120 mg-180 mg) capsule, Take 1 capsule by mouth daily., Disp: , Rfl: omeprazole (PriLOSEC) [address] capsule, Take 20 mg by mouth daily., Disp: , Rfl: rivaroxaban (XARELTO) 20 mg tablet, Take 20 mg by mouth daily., Disp: , Rfl: lisinopriL (PRINIVIL,ZESTRIL) 5 mg tablet, Take 1 tablet (5 mg total) by mouth daily., Disp: 30 tablet, Rfl: 5 OBJECTIVE VITAL SIGNS Vitals: 01/21/22 0829 BP: (!) 154/95 Pulse: 60 Resp: Temp: SpO2: 98% PHYSICAL EXAMINATION General: Well-nourished, well-developed 71 y.o. in no apparent distress. Awake, alert, age appropriate. HEENT: Head is normocephalic, atraumatic. Conjunctivae and sclerae are clear. Cardiovascular: Regular rate and rhythm without murmurs. Lungs: Clear to auscultation bilaterally with no adventitious sounds Skin: Warm, pink, and dry. Extremities: No peripheral edema. Neurologic: Alert and oriented x3. ASSESSMENT / PLAN IMPRESSION/REPORT/PLAN: #1 Syncope #2 Hyponatremia Patient was recently evaluated at [facility] for syncopal episode. It was thought that this episode was due to hyponatremia in the setting of recently starting hydrochlorothiazide and a sodium level of 128 1 week ago. We will recheck BMP today. - Basic Metabolic Panel; Future; Expected date: 01/21/2022 - ECG 12 Lead; Future; Expected date: 01/21/2022 - Basic Metabolic Panel; Future; Expected date: 02/04/2022 #3 Hypertension Essential Primary Blood pressure is elevated in clinic today. Patient currently takes metoprolol succinate 50 mg BID. He is no longer taking hydrochlorothiazide. We will start him at lisinopril 5 mg today with nurse blood pressure check and lab in 2 weeks. Lisinopril was listed as an allergy in records he brought from [place] today but we discussed this and it does not sound like it is a true allergy. Patient will notify me if he has any issues with the lisinopril. #4 Atherosclerotic Heart Disease [place] Coronary Artery With Other Forms Angina Pectoris (Stable Angina/Angina Of Exertion) ([facility]) #6 Cardiomyopathy Hypertrophic ([facility]) #7 Atrial Fibrillation Unspecified #8 CVA (2018) I am able to see his records from [facility] in Care Everywhere from 2018. He has a past medical historyof coronary artery disease and hypertrophic cardiomyopathy. In addition, patient briefly tells a story where he experienced atrial fibrillation. He is on Xarelto. It sounds as though this was started after his CVA in 2018. He also takes metoprolol. He would like to establish care with [facility] and I have placed these orders. - Cardiovascular Disease - General cardiology consult (clinic); Future; Expected date: 01/21/2022 - ECG 12 Lead; Future; Expected date: 01/21/2022 Other orders - lisinopriL (PRINIVIL,ZESTRIL) 5 mg tablet; Take 1 tablet (5 mg total) by mouth daily., Starting [place] 01/21/2022, Normal - Primary Care nurse visit (clinic) - [facility]; BP check; BP check w/ home device; Future; Expected date: 02/04/2022 - Community Internal Medicine office visit (clinic); Future; Expected date: 02/21/2022 If symptoms worsen or do not improve, patient is instructed to seek further medical attention. All questions have been answered. Patient demonstrated understanding and verbalized agreement with the plan. FOLLOW UP: We will plan to follow-up in 1 month. We did not get to address any health maintenance items today or fully discuss his non-cardiac medical history. Bernadine Ward P.A.-C. documented in this encounter Miscellaneous Notes Addendum Note - Bernadine Ward P.A.-C. - 01/21/2022 8:30 AM CDT Addended by: BERNADINE WARD on: 01/21/2022 04:58 PM Modules accepted: Orders documented in this encounter Plan of Treatment Upcoming Encounters Date Type Specialty Care Team Description 03/10/2022 Appointment Cardiovascular Disease Bernadine Ward P.A.-C. 300 [facility] [place] [phone] 03/31/2022 Comprehensive Visit Cardiovascular Disease Melissa Lopez M.D. 300 [facility] [place] [phone] 04/02/2022 Clinical Communication Admitting/Central Scheduling 04/05/2022 Appointment Laboratory Medicine Daphne Rogers M.D. [address] [place] [phone] 04/05/2022 Appointment Radiology Daphne Rogers M.D. [address] [place] [phone] 04/05/2022 Ancillary Procedure Cardiovascular Disease Murray Rogers M.D. [address] [place] [phone] 04/05/2022 Appointment Radiology Daphne Rogers M.D. [address] [place] [phone] 04/05/2022 Diagnostic Pulmonary Medicine Daphne Rogers M.D. [address] [place] [phone] 04/05/2022 Appointment Cardiovascular Disease Daphne Rogers M.D. [address] [place] [phone] 04/06/2022 Comprehensive Visit Cardiovascular Disease Murray Rogers M.D. [address] [place] [phone] 04/06/2022 Comprehensive Visit Pulmonary Medicine Javier Dwyer APRN, C.N.P., D.N.P. [address] [place] [phone] 04/06/2022 Appointment Cardiovascular Disease Daphne Rogers M.D. [address] [place] [phone] 04/06/2022 Appointment Radiology Davis Hughes M.D. [address] [place] [phone] 04/07/2022 Comprehensive Visit Cardiovascular Disease Daphne Rogers M.D. [address] [place] [phone] Inge Morris M.S., [facility] [address] [place] [phone] 04/12/2022 Appointment Cardiovascular Disease Daphne Rogers M.D. [address] [place] [phone] Scheduled Orders Name Type Priority Associated Diagnoses [facility] Transthoracic Echocardiography Routine Atherosclerotic He art Expected: (TTE) Disease [place] Coronary 12/27 Artery With Other Forms (Mercedes roximate), Angina Pectoris (Stable Expi res: Angina/Angina Of 04/23/2023 Exertion) (HCC) Atrial Fibrillation Unspecified Cardiomyopathy Hypertrophic (HCC) Scheduled Referrals Name Type Priority Associated Diagnoses Order S pankaj Primary Care nurse Outpatient Routine Expected: visit (clinic) - [facility] Referral 2021 [facility]; BP (Approximat e), check; BP check w/ Expires: home device 04/23/2023 Community Internal Outpatient Routine Expected: Medicine office visit Referral 2021 (clinic) (Approximate), Expires: 04/23/2023 Cardiovascular Disease Outpatient Routine Atherosclerotic He art Expected: - General cardiology Referral Disease [place] 01/21 consult (clinic) Coronary Artery With (Ap proximate), Other Forms Angina Expires: Pectoris (Stable 04/23/2023 Angina/Angina Of Exertion) (Hcc) documented as of this encounter Results HOLTER MONITOR - IN CLINIC SHAKE SPLITTER (02/09/2022 9:36 AM WOOD HEEL ATTACHER) [facility] gist Method Time Signature Min Heart [...] AF Duration 0 duration INFOBIONIC MOME AF Jay 0 percent INFOBIONIC MOME Symptom Count 0 count INFOBIONIC MOME Specimen (Source) Anatomical Collection Method Collection Time Re ceived Time Location / / Volume Laterality 02/08/2022 2:02 PM WOOD HEEL ATTACHER Narrative INFOBIONIC MOME - 02/10/2022 10:18 AM [...] 1%. 4. No symptoms events were noted. Assistant Counsel: Hernan Schuler Procedure Note Meet Enamorado M.D. - 02/10/2022Formatt ing of this note might be different from the original. [place]. 1. The basic rhythm was sinus. The [...] 1%. 4. No symptoms events were noted. Assistant Counsel: Hernan Schuler Bernadine Martinez.AMillie-C. CV CARDIAC SERVICES PROCEDUR ES Performing Organization Address City/State/ZIP Code Phon e Number INFOBIONIC MOME INFOBIONIC [place] NA (ABNORMAL) Basic Metabolic Panel (02/05/2022 9:32 AM WOOD HEEL ATTACHER) athologist Signature Potassium, P 4.8 3.6 - 5.2 02/05/2022 [place] mmol/L 12:08 PM WOOD HEEL ATTACHER Sodium, P 129 (L) 135 - 145 02/05/2022 [place] mmol/L 12:08 PM WOOD HEEL ATTACHER Chloride, P 91 (L) 98 - 107 02/05/2022 [place] mmol/L 12:08 PM WOOD HEEL ATTACHER Bicarbonate, P 26 22 - 29 02/05/2022 [place] mmol/L 12:07 PM WOOD HEEL ATTACHER Anion Gap, P 12 7 - 15 02/05/2022 [place] 12:08 PM WOOD HEEL ATTACHER BUN (Blood Urea 19 8 - 24 02/05/2022 [place] Nitrogen), P mg/dL 12:07 PM WOOD HEEL ATTACHER Creatinine 0.95 0.74 - 02/05/2022 [place] 1.35 mg/dL 12:07 PM WOOD HEEL ATTACHER Estimated GFR 86 >=60 02/05/2022 [place] (eGFR) mL/min/BSA 12:07 PM WOOD HEEL ATTACHER Comment: Estimated GFR calculated using the 2020 CKD_EPI creatinine equation. Calcium, Total, P 9.2 8.8 - 10.2 mg/dL 02/05/2022 12:0 7 PM WOOD HEEL ATTACHER [place] Glucose, P 88 70 - 140 mg/dL 02/05/2022 12:07 PM WOOD HEEL ATTACHER [place] Specimen Anatomical Collection Method Collection Time Receive d Time (Source) Location / / Volume Laterality Blood (Blood, 02/05/2022 9:32 AM 02/06/20 22 Venous) WOOD HEEL ATTACHER 11:23 AM WOOD HEEL ATTACHER Bernadine Ward P.A.-C. LAB BLOOD ADD-ON Performing Organization Address City/State/ZIP Code Phon e Number [facility] [address] [place] [address] [place] [address] System in [place] [address] ECG 12 Lead (01/21/2022 9:45 AM CDT) athologist Signature Ventricular Rate 62 BPM MUSE ECG/Min [place] Interval 242 ms MUSE QRSD Interval 98 ms MUSE QT Interval 390 ms MUSE QTC Interval 395 ms MUSE P [place] 55 degrees MUSE R [place] 17 degrees MUSE T Wave [place] 39 degrees MUSE Specimen Anatomical Collection Method Collection Time Receive d Time (Source) Location / / Volume Laterality 01/21/2022 9:45 AM 9:49 CDT AM CDT Impressions MUSE - 01/21/2022 9:49 AM CDT Sinus rhythm with sinus arrhythmia with 1st degree A-V block Cannot rule out Anteroseptal infarct When compared with ECG of 02-MAY-2013 07 :12, Premature atrial complexes are no longer present AK interval has increased Reviewed by ROBERTO French [...] Premature atrial complexes are no longer present AK interval has increased Reviewed by ROBERTO French Bernadine Ward P.A.-C. ECG ORDERABLES Performing Organization Address City/State/ZIP Code Phon e Number MUSE MUSE NA (ABNORMAL) Basic Metabolic Panel (01/21/2022 9:40 AM [...] 22 Venous) CDT 11:00 AM CDT Bernadine Ward P.A.-C. LAB BLOOD ADD-ON Performing Organization Address City/State/ZIP Code Phon e Number [facility] [address] [place] [address] [place] [address] System in [place] [address] documented in this encounter Visit Diagnoses Diagnosis Hyponatremia - Primary Syncope Hypertension Essential Primary Atherosclerotic Heart Disease [place] Cor onary Artery With Other Forms Angina Pectoris (Stable Angina/Angina Of Exertion) (HCC) Atrial Fibrillation Unspecified Cardiomyopathy Hypertrophic (HCC) Hyponatremia Atherosclerotic Heart Disease [place] Cor onary Artery With Other Forms Angina Pectoris (Stable Angina/Angina Of Exertion) (HCC) Atrial Fibrillation Unspecified Cardiomyopathy Hypertrophic (HCC) documented in this encounter Care Teams Cleaner And Preparer Relationship Specialty Start Date End Date Bernadine Ward P.A.-C. PCP - General Internal Medicine 01/19/[address] [place] [address] [place] [phone] documented as of this encounter
--- OUTSIDE RECORDS SUMMARY | 2022-03-04 16:18 | XMS_ITS | Encounter Summary ---
:1950 Author Organization [facility] Address [address] [place] [address] Care Team Providers Name Role Phone Bernadine Carr P.A.-C. Primary Care Provider [phone] Reason for Visit Reason Comments Hypertension Encounter Details Date Type Department Care Team Description 01/27/2022 Nurse Triage Department of [facility] Sheela Chew R.N. Hypertension Internal Medicine in [address] [place] [address] [address] [facility] [address] [address] [place] [address] [phone] Social History Tobacco Use Types Packs/Day Years [...] How often do you attend baptist or mandaeism 1 to 4 times per year 01/19/2022 [...] this encounter Miscellaneous Notes Telephone Encounter - Sheela Chew R.N. - 01/27/2022 6:54 PM CDT Chief Complaint / Reason for Call Patient is a 71 y.o. male calling regarding Hypertension. Assessment Concern: Patient reports he had a one time blood pressure earlier this afternoon of 210/134. He has been having increased back pain today and he had an appointment with his Chiropractor today. No new or worsening symptoms since evaluation. Denies any symptoms at this time. Currently his blood pressureis 116/87, 123/88 and 99/73. Remains symptom free. Home cares tried: none Calling to request: Wondering what to do about the high 1 time reading of BP. Has a follow up BP check appointment 01/29/22. The recommended disposition is Home Care. Will call back with any new or worsening symptoms or readings. Reason for Disposition [1] Systolic BP < 130 with Diastolic < 80 AND [2] taking BP medications Protocols used: Blood Pressure - [id number] Care Advice Patient/Caregiver understands and will follow care advice?: Yes, able to teach back HOME CARE: * You should be able to treat this at home. REASSURANCE AND EDUCATION - BP UNDER 130 / 80 AND TAKING BP MEDS: * For most patients with high blood pressure, the goal is to keep the BP under 130/80 * You should talk with your doctor about what your BP goal should be. * Sometimes, modifications in your lifestyle can reduce your blood pressure without medications. * You should call your doctor if you experience dizziness or lightheadedness. HIGH BLOOD PRESSURE: * Untreated high blood pressure may cause damage to your heart, brain, kidneys, and eyes. * Treatment of high blood pressure can reduce the risk of stroke, heart attack, and heart failure. * The goal of blood pressure treatment for most people with hypertension is to keep the blood pressure under 140/90. For people that are 60 years or older, your doctor may instead want to keep the blood pressure under 150/90. HIGH BLOOD PRESSURE - LIFESTYLE MODIFICATIONS: * The following things can help you reduce your blood pressure. * EAT HEALTHY: Eat a diet rich in fresh fruits and vegetables, dietary fiber, non-animal protein (e.g., soy), and low-fat dairy products. Avoid foods with a high content of saturated fat or cholesterol. * DECREASE SODIUM INTAKE: Aim to eat less than 2.4 g (100 mmol) of sodium each day. Unfortunately 75% of the salt in the average person's diet is in pre- processed foods. * LIMIT ALCOHOL: Limit alcoholic beverages to no more than one drink per day for women and no more than two drinks for men. A drink is 1.5 oz hard liquor (one shot or jigger; 45 ml), 5 oz wine (small glass; 150 ml), 12 oz beer (one can; 360 ml). * EXERCISE, BE MORE PHYSICALLY ACTIVE: Do at least 30 minutes of aerobic exercise (e.g., brisk walking) most days of the week. Other examples of aerobic activities cycling, jogging, and swimming. * REDUCE WEIGHT AND WAISTLINE: It is important to maintain a normal body weight. The goal should be a BMI (body mass index) under 25 for men and women, a waist circumference under 40 inches (102 cm) inmen, and a waist circumference under 35 inches (88 cm) in women. * REDUCE STRESS: Find activities that help reduce your stress. Examples might include meditation, yoga, or even a restful walk in a park. HOW TO CHECK YOUR BLOOD PRESSURE? * Rest in a chair for 5 minutes before checking your blood pressure. * Place the cuff on your upper arm, above where the elbow bends. * Take a reading, then take another reading in a minute. Record your blood pressure numbers on paperor in a phone rach. * Bring your blood pressure numbers to your next doctor appointment. CALL BACK IF: * Your blood pressure is 130/80 or higher * You become worse CARE ADVICE given per High Blood Pressure (Adult) guideline. documented in this encounter Plan of Treatment Upcoming Encounters Date Type Specialty Care Team Description 03/10/2022 Appointment Cardiovascular Disease Bernadine Carr P.A.-C. [address] [place] [address] 03/31/2022 Comprehensive Visit Cardiovascular Disease Melissa Lopez M.D. [address] [place] [address] 04/02/2022 Clinical Communication Admitting/Central Scheduling 04/05/2022 Appointment Laboratory Medicine Daphne Rogers M.D. [address] [place] [phone] 04/05/2022 Appointment Radiology Daphne Rogers M.D. [address] [place] [phone] 04/05/2022 Ancillary Procedure Cardiovascular Disease Murray Rogers M.D. [address] [place] [phone] 04/05/2022 Appointment Radiology Daphne Rogers M.D. [address] [place] [phone] 04/05/2022 Diagnostic Pulmonary Medicine Daphne Rogers M.D. [address] [place] [phone] 04/05/2022 Appointment Cardiovascular Disease Daphne Rogers M.D. [address] [place] [phone] 04/06/2022 Comprehensive Visit Cardiovascular Disease Murray Rogers M.D. [address] [place] [phone] 04/06/2022 Comprehensive Visit Pulmonary Medicine Javier Dwyer APRN, C.N.P., D.N.P. [address] [place] [phone] 04/06/2022 Appointment Cardiovascular Disease Daphne Rogers M.D. [address] [place] [phone] 04/06/2022 Appointment Radiology JackDavis conn M.D. [address] [place] [phone] 04/07/2022 Comprehensive Visit Cardiovascular Disease Daphne Rogers M.D. [address] [place] [phone] Inge Morris M.S., [facility] [address] [place] [phone] 04/12/2022 Appointment Cardiovascular Disease Daphne Rogers M.D. [address] [place] [phone] documented as of this encounter Visit Diagnoses Not on filedocumented in this encounter Care Teams It Analyst Relationship Specialty Start Date End Date Bernadine Carr P.A.-C. PCP - General Internal Medicine 01/19/[address] [place] [address] [place] [phone] documented as of this encounter
--- OUTSIDE RECORDS SUMMARY | 2022-03-04 16:18 | XMS_ITS | Encounter Summary ---
:1950 Author Organization [facility] Address [address] [place] [address] Care Team Providers Name Role Phone Bernadine Carr P.A.-C. Primary Care Provider Encounter Details Date Type Department Care Team Description 01/22/2022 Clinical Communication Department of Tj Carr [facility] Anup Colindres Medicine in [address] [address] [place], [place] [phone] (Work) [phone] Social History Tobacco Use Types Packs/Day Years [...] 01/19/2022 relatives? How often do you attend catholic or anglican 1 to 4 times per year 01/19/2022 services? Do you belong to any clubs or organizations such Yes 01/19/2022 as catholic groups, unions, fraternal or athletic groups, or [...] place to sleep or slept in a intermediate (including now)? Education Answer Date Recorded What is the highest level of school Associate degree: onur fang, 01/19/2022 you have completed or the highest technical, or vocational p jacob degree you have received? Sex Assigned at Date Recorded Not on file documented as of this encounter Miscellaneous Notes Telephone Encounter - Wong Powers - 01/22/2022 8:38 AM CDT Reason for Communication: Patient has request for Echo to be completed. Next available for Bam Sheth is into February. Patient stated he will be in [place] by then and would like to know if he can be seen sooner in [place] or any other location. Please call to advise as to if the order can be changed to [place]. Current Can Nursing/Provider leave a detailed message?: Yes Did the patient refuse triage through Nurse line? (for symptom based concerns): Action Needed: Please advise Name of Medication (if relevant): Please send all scheduling replies to scheduling pool. documented in this encounter Plan of Treatment Upcoming Encounters Date Type Specialty Care Team Description 03/10/2022 Appointment Cardiovascular Disease Bernadine Carr P.A.-C. 300 [place] [phone] 03/31/2022 Comprehensive Visit Cardiovascular Disease Melissa Lopez M.D. [address] [facility] [place] [phone] 04/02/2022 Clinical Communication Admitting/Central Scheduling 04/05/2022 Appointment Laboratory Medicine Daphne Rogers M.D. [address] [place] [phone] 04/05/2022 Appointment Radiology Daphne Rogers M.D. [address] [place] [phone] 04/05/2022 Ancillary Procedure Cardiovascular Disease Murray Rogers M.D. [address] [place] [phone] 04/05/2022 Appointment Radiology Daphne Rogers M.D. [address] [place] [phone] 04/05/2022 Diagnostic Pulmonary Medicine Daphne Rogers M.D. [address] [place] [phone] 04/05/2022 Appointment Cardiovascular Disease Daphne Rogers M.D. [address] [place] [phone] 04/06/2022 Comprehensive Visit Cardiovascular Disease Murray Rogers M.D. [address] [place] [phone] 04/06/2022 Comprehensive Visit Pulmonary Medicine Javier Dwyer APRN, C.N.P., D.N.PMillie [address] [place] [phone] 04/06/2022 Appointment Cardiovascular Disease Daphne Rogers M.D. [address] [place] [phone] 04/06/2022 Appointment Radiology Davis Hughes M.D. [address] [place] [phone] 04/07/2022 Comprehensive Visit Cardiovascular Disease Daphne Rogers M.D. [address] [place] [phone] Inge Morris M.S., [facility] [address] [place] [phone] 04/12/2022 Appointment Cardiovascular Disease Daphne Rogers M.D. [address] [place] [phone] documented as of this encounter Visit Diagnoses Not on filedocumented in this encounter Care Teams Joinery Patternmaker Relationship Specialty Start Date End Date Bernadine Carr P.A.-C. PCP - General Internal Medicine 01/19/[address] [place] [address] [place] [phone] [facility] 02/09/22 [address] [place] [address] documented as of this encounter
--- OUTSIDE RECORDS SUMMARY | 2022-03-04 16:18 | XMS_ITS | Encounter Summary ---
:1950 Author Organization [facility] Address [address] [place] [address] Care Team Providers Name Role Phone Unavailable Primary Care Provider Unavailable Reason for Visit Reason Comments Triage External referral- afib Encounter Details Date Type Department Care Team Description 12/31/2021 Clinical Department of Group Sales Manager Triage (Surveillance Manager al Communication Cardiovascular , Jemma Cruz referral- af ib) Medicine in [place], [place] [address] [place] [address] Social History Tobacco Use Types Packs/Day Years [...] 01/19/2022 relatives? How often do you attend mu-ism or zoroastrian 1 to 4 times per year 01/19/2022 services? Do you belong to any clubs or organizations such Yes 01/19/2022 as mu-ism groups, unions, fraternal or athletic groups, or [...] place to sleep or slept in a penitentiary (including now)? Sex Assigned at Date Recorded Not on file documented as of this encounter Miscellaneous Notes Telephone Encounter - Abdiel, Debfifi Whitley APRN, C.N.P., D.N.P. - 01/18/2022 11:51 AM CDT Images from the original note were not included. TRIAGE NOTE FOR GENERAL CARDIOLOGY 71 y.o. male from [address] [facility] [address] Referred by Tomas Lopez M.D. for atrial fibrillation Patient previously managed by advanced practice nurse with [facility]. He was diagnosed with hypertrophic cardiomyopathy with a increased gradient with Valsalva, maximal wall thickness of 2 cm on cardiac MR. Patient also has paroxysmal atrial fibrillation. Cardiology visit 11/18/2017 in History of Present Illness: As you know, he is a 67-year-old man. We have diagnosed hypertrophic cardiomyopathy. He does not have a resting gradient but did develop an outflow gradient of 62 mmHg with Valsalva and 64 mmHg after exercise echo. He exercised for 6 minutes and 36 seconds to a heart rate of 141 and a blood pressure of 204. The double product was 28,764. A cardiac MRI showed maximal wall thickness of 2 cm and mild delayed enhancement in the apical inferior wall. A ZIO patch showed one episode of 150 bpm rate. He wasgiven metoprolol 50 mg twice a day. Followup ZIO patch showed short bursts of a primary atrial tachycardia. Mr. Mckeon had an episode of lightheadedness that lasted all day. This occurred after he was struggling to loosen a bolt with a wrench. He performed a Valsalva and felt funny (just like he felt when he did the echocardiogram). He then was lightheaded all day. He continues to smoke. He has exercised more and is improving his exercise tolerance. If you remember, we performed a coronary CT angiogram. This showed a calcium score markedly elevatedat 3146 (99th percentile for matched age and sex). There was a small marginal branch that has a lesion but no other obstructive coronary disease was found. He was started on atorvastatin 40 mg a day with a goal to decrease LDL cholesterol as much as possible. He has also had a CVA and is chronically on rivaroxaban at 20 mg a day. There is no chest pain, PND or orthopnea. Patient Active Problem List Diagnosis Code Pure hypercholesterolemia E78.00 Unspecified essential hypertension I10 Benign neoplasm of colon D12.6 Adjustment disorder with depressed mood F43.21 GERD (gastroesophageal reflux disease) K21.9 Hypertrophic obstructive cardiomyopathy (HC) I42.1 Hypertrophic cardiomyopathy (HC) I42.2 Impression: 1. Hypertrophic cardiomyopathy. A. No family history of sudden . B. No increased risk for sudden . C. Maximum wall thickness 2 cm. 2. Provocable left ventricular outflow tract obstruction. 3. Probable symptoms related to prolonged Valsalva. 4. History of CVA on Xarelto indefinitely. 5. Primary atrial tachycardia better controlled on metoprolol 50 mg twice a day. 6. Ongoing smoking. Recommendations: 1. I re-emphasized the absolute need to stop smoking given his coronary artery disease. 2. Continue with atorvastatin with a repeat lipid panel when he visits you in the near future. 3. Continue metoprolol - it seems to have helped his primary atrial tachycardia. 4. I believe his symptoms were related to outflow obstruction when he performed a prolonged Valsalva. We discussed this issue. He has good exercise tolerance and provocable left ventricular outflow tract obstruction. 5. Follow up in a year. CT Cardiac Coronary Arteries in [place] CORONARY ANATOMY: (Right Dominant) LEFT MAIN: No stenosis. LEFT ANTERIOR DESCENDING: There is diffuse calcification in multiple locations with no stenosis. FIRST DIAGONAL: Calcified, but patent and is a branching vessel. SECOND DIAGONAL: Small and patent. CIRCUMFLEX: Nondominant. FIRST OBTUSE MARGINAL: Diffuse disease throughout and is a small vessel and patent. SECOND OBTUSE MARGINAL: Calcified. There is diffuse distal disease, severe distal disease that is small and likely occluded. RIGHT CORONARY ARTERY: Dominant. There is diffuse calcification with no stenosis. POSTERIOR DESCENDING ARTERY: No stenosis. POSTEROLATERAL BRANCH(ES): No stenosis. AORTA: Proximal ascending aorta, mid-through distal descending thoracic aorta is normal. PERICARDIUM: Normal thickness and without an effusion. Cardiac MR 07/29/2017 in [place] 1. Combination of findings most consistent with hypertrophic cardiomyopathy. However, delayed enhancement involving the basal inferolateral wall is atypical, consider ruling out Han-Fabry disease. 2. Normal LV volume, hyperdynamic LV function, EF calculated at 79%. Increased LV mass. A. Maximum wall thickness of 20 mm involving the interventricular septum. B. Systolic anterior motion present with qualitative evidence of LVOT obstruction at rest. C. Small area of apical cap dyskinesis involving with associated thinning. There is transmural delayed hyperenhancement. This is a small apical aneurysm. D. Mid myocardial to subepicardial delayed enhancement involving the very basal inferolateral wall. This is atypical for hypertrophic cardiomyopathy. E. Extracellular volume not calculated due to lack of a documented hematocrit. [place] T1 value is mildly elevated at 1021 ms. 3. Normal RV volume. Preserved RV systolic function. Calculated ejection fraction of 71%. 4. Mild left atrial enlargement. COMMENTS: The overall finding of hyperdynamic LV function, LVH, and apical aneurysm with transmural delayed enhancement is most consistent with hypertrophic cardiomyopathy. The delayed hyperenhancement involving the basal inferolateral wall, however, is atypical. Consider ruling out Han-Fabry disease. ECG 07/04/2017 in [facility] ECG page 3 KIM TRIAGE RECOMMENDATIONS: Pending review by the [facility] Referral Triage: Pending IMAGES/Results needed for consult: Cardiac MR images, CT coronary arteries, Telephone Encounter - Michelle Rees RPeewee. - 01/18/2022 10:30 AM CDT Images from the original note were not included. [facility]' Nurse Chart Review: INDICATION: Mr. Carmelo Mckeon is a 71 y.o. male who is referred by Dr. Tomas Lopez for atrial fibrillation. Desiring [facility] to be his primary advanced practice nurse. SYMPTOMS & DURATION: asymptomatic, paroxysmal HISTORY: Dr. Lopez note 12/30/2021: Most Recent Completed Testing: ECG from 06/2017: Trialed Antiarrhythmics: -none -Metoprolol -Xarelto for anticoagulation ORDERS PLACED: Does not meet HRS criterion for appointment. Telephone Encounter - Jai Dominguez - 12/31/2021 2:40 PM CDT SUBJECTIVE CHIEF COMPLAINT / REASON FOR CALL Triage (External referral- afib) Triage/Record Review Internal/external: external referral Questions to be answered: afib Requested date: Additional comments: patient had testing done at [facility] documented in this encounter Plan of Treatment Upcoming Encounters Date Type Specialty Care Team Description 03/10/2022 Appointment Cardiovascular Disease Bernadine Carr P.A.-C. [address] [place] [address] 03/31/2022 Comprehensive Visit Cardiovascular Disease Melissa Lopez M.D. [address] [place] [address] 04/02/2022 Clinical Communication Admitting/Central Scheduling 04/05/2022 Appointment Laboratory Medicine Daphne Rogers M.D. [address] [place] [phone] 04/05/2022 Appointment Radiology Daphne Rogers M.D. [address] [place] [phone] 04/05/2022 Ancillary Procedure Cardiovascular Disease Murray Rogers M.D. [address] [place] [phone] 04/05/2022 Appointment Radiology Daphne Rogers M.D. [address] [place] [phone] 04/05/2022 Diagnostic Pulmonary Medicine Daphne Rogers M.D. [address] [place] [phone] 04/05/2022 Appointment Cardiovascular Disease Daphne Rogers M.D. [address] [place] [phone] 04/06/2022 Comprehensive Visit Cardiovascular Disease Murray Rogers M.D. [address] [place] [phone] 04/06/2022 Comprehensive Visit Pulmonary Medicine Javier Dwyer APRN, C.N.P., D.N.P. [address] [place] [phone] 04/06/2022 Appointment Cardiovascular Disease Daphne Rogers M.D. [address] [place] [phone] 04/06/2022 Appointment Radiology MidthunDavis M.D. [address] [place] [phone] 04/07/2022 Comprehensive Visit Cardiovascular Disease Daphne Rogers M.D. [address] [place] [phone] Inge Morris M.S., [facility] [address] [place] [phone] 04/12/2022 Appointment Cardiovascular Disease Daphne Rogers M.D. [address] [place] [phone] documented as of this encounter Visit Diagnoses Not on filedocumented in this encounter
--- OUTSIDE RECORDS SUMMARY | 2022-03-04 16:18 | XMS_ITS | Encounter Summary ---
:[address] [facility] Address [address] [place] [address] Care Team Providers Name Role Phone Bernadine Carr P.A.-C. Primary Care Provider Reason for Visit Reason Comments Nurse Visit Appointment Request (Routine) - Closed Specialty Diagnoses / Procedures Referred By Contact Refer red To Contact Family Medicine Referral ID Status Reason Start Date Expiration Date Visits Requ ested Visits Authorized [id number] Closed 01/27/2022 01/27/2023 1 1 Encounter Details Date Type Department Care Team Description 01/29/2022 Office Visit Department of Family Cyndie Lopez Hyp ertension Essential Medicine, [place] [facility], in [facility] [phone] [place] ([address] [phone] Social History Tobacco Use Types Packs/Day Years [...] 01/19/2022 relatives? How often do you attend jainism or pentecostal 1 to 4 times per year 01/19/2022 services? Do you belong to any clubs or organizations such Yes 01/19/2022 as jainism groups, unions, fraternal or athletic groups, or [...] or slept in a halfway (including now)? Education Answer Date Recorded What is the highest level of school Associate degree: onur fang, 01/19/2022 you have completed or the highest technical, or vocational p jacob degree you have received? Sex Assigned at Date Recorded Not on file documented as of this encounter Last Filed Vital Signs Vital Sign Reading Time Taken Comments Blood Pressure 163/107 01/29/2022 12:53 PM CDT Pulse 71 01/29/2022 12:53 PM CDT Temperature - - Respiratory Rate - - Oxygen Saturation - - Inhaled Oxygen Concentration - - Weight - - Height - - Body Mass Index - - documented in this encounter Progress Notes Cyndie Lopez L.PMillieN. - 01/29/2022 1:00 PM CDT Carmelo is seen today for a blood pressure visit as ordered by Bernadine Carr PA-C. Visit was conducted in clinic. Today's blood pressure reading and prior two readings: BP Readings from Last 3 Encounters: 01/29/22 (!) 163/107 01/21/22 (!) 154/95 . Medication list was reconciled, and patient is taking their blood pressure medication as prescribed. The patient reports no acute symptoms of hypertension The patient provided a list of home BP readings. They were Systolic Blood Pressures range from 101 to 210, average 171. Diastolic Blood Pressures ranges from 58 to 134, average 114. . 163/107 was the 4th taken today Average of first 3 was 189/121 documented in this encounter Plan of Treatment Upcoming Encounters Date Type Specialty Care Team Description 03/10/2022 Appointment Cardiovascular Disease Bernadine Carr P.A.-C. [address] [place] [phone] 03/31/2022 Comprehensive Visit Cardiovascular Disease Melissa Lopez M.D. [address] [place] [phone] 04/02/2022 Clinical Communication Admitting/Central Scheduling 04/05/2022 Appointment Laboratory Medicine Daphne Rogers M.D. [address] [place] [phone] 04/05/2022 Appointment Radiology Daphne Rogers M.D. [address] [place] [phone] 04/05/2022 Ancillary Procedure Cardiovascular Disease Murray Rogers M.D. [address] [place] [phone] 04/05/2022 Appointment Radiology Daphne Rogers M.D. [address] [place] [phone] 04/05/2022 Diagnostic Pulmonary Medicine Daphne Rogers M.D. [address] [place] [phone] 04/05/2022 Appointment Cardiovascular Disease Daphne Rogers M.D. [address] [place] [phone] 04/06/2022 Comprehensive Visit Cardiovascular Disease Murray Rogers M.D. [address] [place] [phone] 04/06/2022 Comprehensive Visit Pulmonary Medicine Javier Dwyer APRN, C.N.P., D.N.P. [address] [place] [phone] 04/06/2022 Appointment Cardiovascular Disease Daphne Rogers M.D. [address] [place] [phone] 04/06/2022 Appointment Radiology JackthDavis conn M.D. [address] [place] [phone] 04/07/2022 Comprehensive Visit Cardiovascular Disease Daphne Rogers M.D. [address] [place] [phone] Inge Morris M.S., [facility] [address] [place] [phone] 04/12/2022 Appointment Cardiovascular Disease Daphne Rogers M.D. [address] [place] [phone] documented as of this encounter Visit Diagnoses Diagnosis Hypertension Essential Primary - Primary documented in this encounter Care Teams Trademark Attorney Relationship Specialty Start Date End Date Bernadine Carr P.A.-C. PCP - General Internal Medicine 01/19/[address] [place] [address] THALIA Cabrera [phone] documented as of this encounter
--- OUTSIDE RECORDS SUMMARY | 2022-03-04 16:18 | XMS_ITS | Encounter Summary ---
:1950 Author Organization [facility] Address [address] [place] [address] Care Team Providers Name Role Phone Bernadine Carr P.A.-C. 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) (FORM[facility]LY [facility]) Bernadine Carr [facility] Cardiovascular Disease Juan.Travis [address] [place] [address] Referral ID Status Reason Start Date Expiration Date Visits V isits Requested Authorized [id number] Authorized 01/21/2022 01/21/2023 1 1 Encounter Details Date Type Department Care Team Description 01/21/2022 Clinical Communication Department of [facility] Anup Colindres Medicine in [address] [facility] [phone] [place], [place] [phone] [address] (Work) [phone] Social History Tobacco Use Types Packs/Day Years [...] How often do you attend baptist or jain 1 to 4 times per [...] or the highest technical, or vocational p [facility] degree you have received? Sex Assigned at Date Recorded Not on file documented as of this encounter Miscellaneous Notes Telephone Encounter - Angella Sher R.N. - 01/21/2022 9:50 AM CDT Dayron Colindres, I have pended the Correct ICS- Cardiology consult for this patient for you to review and sign if appropriate. This will allow our cardiologists to triage this patient and order pre-testing if indicated. Thank you, NINO Perales [facility] Cardiology documented in this encounter Plan of Treatment Upcoming Encounters Date Type Specialty Care Team Description 03/10/2022 Appointment Cardiovascular Disease Bernadine Carr P.A.-C. [address] [place] [phone] 03/31/2022 Comprehensive Visit Cardiovascular Disease Melissa Lopez M.D. 300 [place] [phone] 04/02/2022 Clinical Communication Admitting/Central Scheduling 04/05/2022 Appointment Laboratory Medicine Daphne Rogers M.D. [address] [place] [phone] 04/05/2022 Appointment Radiology Daphne Rogers M.D. [address] [place] [phone] 04/05/2022 Ancillary Procedure Cardiovascular Disease Murray Rogers M.D. [address] [place] [phone] 04/05/2022 Appointment Radiology Daphne Rogers M.D. [address] [place] [phone] 04/05/2022 Diagnostic Pulmonary Medicine Daphne Rogers M.D. [address] [place] [phone] 04/05/2022 Appointment Cardiovascular Disease Daphne Rogers M.D. [address] [place] [phone] 04/06/2022 Comprehensive Visit Cardiovascular Disease Murray Rogers M.D. [address] [place] [phone] 04/06/2022 Comprehensive Visit Pulmonary Medicine Javier Dwyer APRN, C.N.P., D.N.P. [address] [place] [phone] 04/06/2022 Appointment Cardiovascular Disease Daphne Rogers M.D. [address] [place] [phone] 04/06/2022 Appointment Radiology Davis Hughes M.D. [address] [place] [phone] 04/07/2022 Comprehensive Visit Cardiovascular Disease Daphne Rogers M.D. [address] [place] [phone] Inge Morris M.S., [facility] [address] [place] [phone] 04/12/2022 Appointment Cardiovascular Disease Daphne Rogers M.D. 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 PCP - General Internal Medicine 01/19/[address] [place] [phone] documented as of this encounter
--- OUTSIDE RECORDS SUMMARY | 2022-03-04 16:18 | XMS_ITS | Encounter Summary ---
:1950 Author Organization [facility] Address [address] [place] [address] Care Team Providers Name Role Phone Bernadine Carr P.A.-C. Primary Care Provider [phone] Encounter Details Date Type Department Care Team Description 01/29/2022 Orders Only Department of [place], Hypertension E [facility] Internal Anup Colindres Primary (Primary Dx) Medicine in [address] [phone] [place], [place] [phone] [address] (Work) [phone] Social History Tobacco Use Types Packs/Day Years [...] 01/19/2022 relatives? How often do you attend zoroastrianism or shinto 1 to 4 times per year 01/19/2022 services? Do you belong to any clubs or organizations such Yes 01/19/2022 as zoroastrianism groups, unions, fraternal or athletic groups, or [...] Appointment Cardiovascular Disease Bernadine Carr P.A.-C. [address] [place] [address] 03/31/2022 Comprehensive Visit Cardiovascular Disease Melissa Lopez M.D. 300 [place] [phone] 04/02/2022 Clinical Communication Admitting/Central Scheduling 04/05/2022 Appointment Laboratory Medicine Daphne Rogers M.D. [address] [place] [phone] 04/05/2022 Appointment Radiology Daphne Rogers M.D. [address] [place] [phone] 04/05/2022 Ancillary Procedure Cardiovascular Disease Murray Rogers M.D. [address] [place] [phone] 04/05/2022 Appointment Radiology Daphne Rogers M.D. [address] [place] [phone] 04/05/2022 Diagnostic Pulmonary Medicine Daphne Rogers M.D. [address] [place] [phone] 04/05/2022 Appointment Cardiovascular Disease Daphne Rogers M.D. [address] [place] [phone] 04/06/2022 Comprehensive Visit Cardiovascular Disease Murray Rogers M.D. [address] [place] [phone] 04/06/2022 Comprehensive Visit Pulmonary Medicine Javier Dwyer APRN, C.N.P., D.N.P. [address] [place] [phone] 04/06/2022 Appointment Cardiovascular Disease Daphne Rogers M.D. [address] [place] [phone] 04/06/2022 Appointment Radiology Davis Hughes M.D. [address] [place] [phone] 04/07/2022 Comprehensive Visit Cardiovascular Disease Daphne Rogers M.D. [address] [place] [phone] Inge Morris M.S., [facility] [address] [place] [phone] 04/12/2022 Appointment Cardiovascular Disease Daphne Rogers M.D. [address] [place] [phone] documented as of this encounter Results (ABNORMAL) Basic Metabolic Panel (02/12/2022 9:18 AM JEWELRY SORTER) P athologist Signature Potassium, P 4.6 3.6 - 5.2 02/12/2022 [place] mmol/L 11:12 AM JEWELRY SORTER Sodium, P 131 (L) 135 - 145 02/12/2022 [place] mmol/L 11:12 AM JEWELRY SORTER Chloride, P 91 (L) 98 - 107 02/12/2022 [place] mmol/L 11:12 AM JEWELRY SORTER Bicarbonate, P 27 22 - 29 02/12/2022 [place] mmol/L 11:12 AM JEWELRY SORTER Anion Gap, P 13 7 - 15 02/12/2022 [facility] 11:12 AM JEWELRY SORTER BUN (Blood Urea 16 8 - 24 02/12/2022 [facility] Nitrogen), P mg/dL 11:12 AM JEW[facility]RY SORTER Creatinine 0.88 0.74 - 02/12/2022 [facility] 1.35 mg/dL 11:12 AM JEWELRY SORTER Estimated GFR >90 >=60 02/12/2022 [facility] (eGFR) mL/min/BSA 11:12 AM JEWELRY SORTER Comment: Estimated GFR calculated using the 2020 CKD_EPI creatinine equation. Calcium, Total, P 9.1 8.8 - 10.2 mg/dL 02/12/2022 11:1 2 AM [facility]EWELRY SORTER [facility] Glucose, P 82 70 - 140 mg/dL 02/12/2022 11:12 AM JEWELRY SORTER [place] Specimen Anatomical Collection Method Collection Time Receive d Time (Source) Location / / Volume Laterality Blood (Blood, 02/12/2022 9:18 AM 02/13/20 22 Venous) [facility] 10:46 AM JEWELRY SORTER Bernadine Carr P.A.-C. LAB BLOOD ADD-ON Performing Organization Address City/State/ZIP Code Phon e Number [facility] [address] [place] [address] [place] [address] System in [place] [address] documented in this encounter Visit Diagnoses Diagnosis Hypertension Essential Primary - Primary documented in this encounter Care Teams Launch Check Out Relationship Specialty Start Date End Date Bernadine Carr P.A.-C. PCP - General Internal Medicine 01/19/[address] [place] [address] THALIA Cabrera [phone] documented as of this encounter
--- OUTSIDE RECORDS SUMMARY | 2022-03-04 16:18 | XMS_ITS | Encounter Summary ---
:1950 Author Organization [facility] Address [address] [place] [address] Care Team Providers Name Role Phone Unavailable Primary Care Provider Unavailable Encounter Details Date Type Department Care Team Description 01/05/2022 [facility] Tomas Lopez Atrial Fibrillation AND CLINICS Jemma Cheek Unspecified (Primary [facility] [address] [facility] Dx) [address] [place] [address] [phone] Social History Tobacco Use Types Packs/Day Years [...] 01/19/2022 relatives? How often do you attend anglican or restorationist 1 to 4 times per year 01/19/2022 services? Do you belong to any clubs or organizations such Yes 01/19/2022 as anglican groups, unions, fraternal or athletic groups, or [...] place to sleep or slept in a half-way (including now)? Sex Assigned at Date Recorded Not on file documented as of this encounter Plan of Treatment Upcoming Encounters Date Type Specialty Care Team Description 03/10/2022 Appointment Cardiovascular Disease Bernadine Carr P.A.-C. [address] [place] [phone] 03/31/2022 Comprehensive Visit Cardiovascular Disease Melissa Lopez M.D. [address] [place] [phone] 04/02/2022 Clinical Communication Admitting/Central Scheduling 04/05/2022 Appointment Laboratory Medicine Daphne Rogers M.D. [address] [place] [phone] 04/05/2022 Appointment Radiology Daphne Rogers M.D. [address] [place] [phone] 04/05/2022 Ancillary Procedure Cardiovascular Disease Murray Rogers M.D. [address] [place] [phone] 04/05/2022 Appointment Radiology Daphne Rogers M.D. [address] [place] [phone] 04/05/2022 Diagnostic Pulmonary Medicine Daphne Rogers M.D. [address] [place] [phone] 04/05/2022 Appointment Cardiovascular Disease Daphne Rogers M.D. [address] [place] [phone] 04/06/2022 Comprehensive Visit Cardiovascular Disease Murray Rogers M.D. [address] [place] [phone] 04/06/2022 Comprehensive Visit Pulmonary Medicine Javier Dwyer APRN, C.N.P., D.N.P. [address] [place] [phone] 04/06/2022 Appointment Cardiovascular Disease Daphne Rogers M.D. [address] [place] [phone] 04/06/2022 Appointment Radiology JackDavis conn M.D. [address] [place] [phone] 04/07/2022 Comprehensive Visit Cardiovascular Disease Daphne Rogers M.D. [address] [place] [phone] Inge Morris M.S., [facility] [address] [place] [phone] 04/12/2022 Appointment Cardiovascular Disease Daphne Rogers M.D. [address] [place] [phone] documented as of this encounter Visit Diagnoses Diagnosis Atrial Fibrillation Unspecified - Primar y documented in this encounter
--- OUTSIDE RECORDS SUMMARY | 2022-03-04 16:19 | XMS_ITS | Encounter Summary ---
:1950 Author Organization [facility] Address [address] [place] [address] Care Team Providers Name Role Phone Unavailable Primary Care Provider Unavailable Encounter Details Date Type Department Care Team Description 04/30/2013 - 05/02/2013 Hospital Encounter HX RST DOMITILLA 3D Social History Tobacco Use Types Packs/Day Years Used Date Smoking Tobacco: Never Assessed Alcohol Habits Answer Date Recorded How often [...] 01/19/2022 relatives? How often do you attend caodaism or tenriism 1 to 4 times per year 01/19/2022 services? Do you belong to any clubs or organizations such Yes 01/19/2022 as caodaism groups, unions, fraternal or athletic groups, or [...] or slept in a intermediate (including now)? Sex Assigned at Date Recorded Not on file documented as of this encounter Last Filed Vital Signs Vital Sign Reading Time Taken Comments Blood Pressure 113/70 05/02/2013 2:46 PM MATCH UP PERSON Pulse 86 05/02/2013 2:46 PM MATCH UP PERSON Temperature - - Respiratory Rate 16 05/02/2013 2:08 PM MATCH UP PERSON Oxygen Saturation - - Inhaled Oxygen Concentration - - Weight - - Height - - Body Mass Index - - documented in this encounter Medications at Time of Discharge Medication Sig Dispensed Refills Start Date End Date cetirizine (ZyrTEC) 10 mg Take 10 mg by mouth 0 0 10/30/2007 tablet daily. multivitamin tablet Take 1 tablet by 0 01/02/2008 mouth daily. omega 7-puw-vft-fish oil Take 1 capsule by 0 09/2007 1,000 mg (120 mg-180 mg) mouth daily. capsule documented as of this encounter Plan of Treatment Upcoming Encounters Date Type Specialty Care Team Description 03/10/2022 Appointment Cardiovascular Disease Bernadine Carr P.A.-C. [address] [place] [phone] 03/31/2022 Comprehensive Visit Cardiovascular Disease Melissa Lopez M.D. [address] [place] [phone] 04/02/2022 Clinical Communication Admitting/Central Scheduling 04/05/2022 Appointment Laboratory Medicine Dapnhe Rogers M.D. [address] [place] [phone] 04/05/2022 Appointment Radiology Daphne Rogers M.D. [address] [place] [phone] 04/05/2022 Ancillary Procedure Cardiovascular Disease Murray Rogers M.D. [address] [place] [phone] 04/05/2022 Appointment Radiology Daphne Rogers M.D. [address] [place] [phone] 04/05/2022 Diagnostic Pulmonary Medicine Daphne Rogers M.D. [address] [place] [phone] 04/05/2022 Appointment Cardiovascular Disease Daphne Rogers M.D. [address] [place] [phone] 04/06/2022 Comprehensive Visit Cardiovascular Disease Murray Rogers M.D. [address] [place] [phone] 04/06/2022 Comprehensive Visit Pulmonary Medicine Javier Dwyer APRN, C.N.P., D.N.P. [address] [place] [phone] 04/06/2022 Appointment Cardiovascular Disease Daphne Rogers M.D. [address] [place] [phone] 04/06/2022 Appointment Radiology Davis Hughes M.D. [address] [place] [phone] 04/07/2022 Comprehensive Visit Cardiovascular Disease Daphne Rogers M.D. [address] [place] [phone] Inge Morris M.S., [facility] [address] [place] [phone] 04/12/2022 Appointment Cardiovascular Disease Daphne Rogers M.D. [address] [place] [phone] documented as of this encounter Procedures Procedure Name Priority Date/Time Associated Comments Diagnosis ELECTROLYTE (CHEM 4) Routine 05/01/2013 12:51 Res ults for this PANEL, S/P AM MATCH UP PERSON procedure are i n the results section. CBC WITH DIFFERENTIAL, B Routine 05/01/2013 12:51 Results for this AM MATCH UP PERSON procedure are i n the results section. OSMOLALITY, S Routine 05/01/2013 12:51 Results fo r this AM MATCH UP PERSON procedure are i n the results section. HX MICROBIOLOGY REPORTS Routine 04/30/2013 5:11 R esults for this PM MATCH UP PERSON procedure are i n the results section. SODIUM, RANDOM, U Routine 04/30/2013 5:11 Results for this PM MATCH UP PERSON procedure are i n the results section. MICROSCOPIC MANUAL Routine 04/30/2013 5:11 Result s for this PM MATCH UP PERSON procedure are i n the results section. GRAM'S ST, U Routine 04/30/2013 5:11 Results for this PM MATCH UP PERSON procedure are i n the results section. LEGIONELLA AG, U Routine 04/30/2013 5:11 Results for this PM MATCH UP PERSON procedure are i n the results section. CREATININE, RANDOM, U Routine 04/30/2013 5:11 Res ults for this PM MATCH UP PERSON procedure are i n the results section. URINALYSIS WITH Routine 04/30/2013 5:11 Results f or this MICROSCOPIC PM MATCH UP PERSON procedure are i n the results section. DX CHEST PORTABLE 1 VIEW Routine 04/30/2013 12:31 Results for this PM MATCH UP PERSON procedure are i n the results section. INFLUENZA A/B AND RSV, Routine 04/30/2013 12:02 R esults for this PCR, MISC PM MATCH UP PERSON procedure are i n the results section. HX MICROBIOLOGY REPORTS Routine 04/30/2013 11:02 Results for this AM MATCH UP PERSON procedure are i n the results section. ABG W/COOX Routine 04/30/2013 11:02 Results for this AM MATCH UP PERSON procedure are i n the results section. THYROID FUNCTION Routine 04/30/2013 11:02 Results for this CASCADE, S AM MATCH UP PERSON procedure are i n the results section. CORTISOL, S Routine 04/30/2013 11:02 Results for this AM MATCH UP PERSON procedure are i n the results section. HX MICROBIOLOGY REPORTS Routine 04/30/2013 10:50 Results for this AM MATCH UP PERSON procedure are i n the results section. ELPN WITH CREATININE Routine 04/30/2013 10:50 Res ults for this TALITA, P AM MATCH UP PERSON procedure are i n the results section. CARDIAC BIOMARKER PANEL, Routine 04/30/2013 10:50 Results for this S AM MATCH UP PERSON procedure are i n the results section. NT-PRO B-TYPE Routine 04/30/2013 10:50 Results fo r this NATRIURETIC PEPTIDE AM MATCH UP PERSON procedur e are in (BNP), S the results section. CBC WITH DIFFERENTIAL, B Routine 04/30/2013 10:50 Results for this AM MATCH UP PERSON procedure are i n the results section. ALANINE AMINOTRANSFERASE Routine 04/30/2013 10:50 Results for this (ALT), S/P AM MATCH UP PERSON procedure are i n the results section. ASPARTATE Routine 04/30/2013 10:50 Results for this AMINOTRANSFERASE (AST), AM MATCH UP PERSON proc edure are in S/P the results section. ALKALINE PHOSPHATASE, Routine 04/30/2013 10:50 Re sults for this S/P AM MATCH UP PERSON procedure are i n the results section. LACTATE, B/P Routine 04/30/2013 10:50 Results for this AM MATCH UP PERSON procedure are i n the results section. BILIRUBIN DIRECT, S/P Routine 04/30/2013 10:50 Re sults for this AM MATCH UP PERSON procedure are i n the results section. BILIRUBIN, TOT, S/P Routine 04/30/2013 10:50 Resu lts for this AM MATCH UP PERSON procedure are i n the results section. DX CHEST PORTABLE 1 VIEW Routine 04/30/2013 10:28 Results for this AM MATCH UP PERSON procedure are i n the results section. documented in this encounter Results (ABNORMAL) Osmolality (05/01/2013 12:51 AM MATCH UP PERSON) [facility] gist Method Time Signature Osmolality, S 268 (L) 275 - 295 [facility] MOSM/KG [facility] Specimen Anatomical Collection Method Collection Time Receive d Time (Source) Location / / Volume Laterality 05/01/2013 12:51 05/01/2013 AM MATCH UP PERSON 12:51 AM MATCH UP PERSON Rakan Ortiz M.D. LAB BLOOD ADD-ON Performing Organization Address City/State/ZIP Code Phon e Number [facility] LABORATORIES - [address] [place] [address] [facility] (ABNORMAL) Electrolyte (Chem 4) Panel (05/01/2013 12:51 AM MATCH UP PERSON) [facility] Method Time Signature Sodium, S 131 (L) 135 - 145 [facility] MMOL/L LABORATORIES - [facility] Potassium, S 4.2 3.6 - 5.2 [facility] MMOL/L LABORATORIES - [facility] Creatinine 0.6 (L) 0.8 - 1.3 [facility] MG/DL LABORATORIES - [facility] eGFR >60 >60 [facility] Non-Black/Afric ML/MIN/BS LABORATORIES - Togolese A [facility] Chloride, S 96 (L) 100 - 108 [facility] MMOL/L LABORATORIES - [facility] HX Bicarbonate, 25 22 - 29 [facility] P/S MMOL/L LABORATORIES [facility] eGFR-Black/Afri >60 >60 [facility] can [place]og[place]ese ML/MIN/BS LABORATORIES - [facility] BUN (Blood Urea 9 8 - 24 [facility] Nitrogen), S MG/DL [facility] Anion Gap 10 7 - 15 [facility] - [facility] Glucose, S 91 70 - 140 [facility] MG/DL LABORATORIES - [facility] Specimen Anatomical Collection Method Collection Time Receive d Time (Source) Location / / Volume Laterality 05/01/2013 12:51 05/01/2013 AM MATCH UP PERSON 12:51 AM MATCH UP PERSON Rakan Ortiz M.D. LAB BLOOD ADD-ON Performing Organization Address City/State/ZIP Code Phon e Number [facility] LABORATORIES - [address] [phone] [facility] (ABNORMAL) CBC with Differential (05/01/2013 12:51 AM MATCH UP PERSON) [facility] Method Time Signature Erythrocytes 3.73 (L) 4.32 - [facility] 5.72 LABORATORIES - X10(12)/L [facility] MCV 92.5 81.2 - [facility] 95.1 FL LABORATORIES - [facility] Leukocytes 4.4 3.5 - [facility] 10.5 LABORATORIES - X10(9)/L [facility] Neutrophils 2.11 1.70 - [facility] 7.00 LABORATORIES - X10(9)/L [facility] Hemoglobin 11.7 (L) 13.5 - [facility] 17.5 G/DL LABORATORIES [facility] Hematocrit 34.5 (L) 38.8 - [facility] 50.0 % [facility] RBC Distrib 13.8 11.8 - [facility] Width 15.6 % LABORATORIES - [facility] Platelet Count 205 150 - 450 [facility] X10(9)/L LABORATORIES - [facility] Lymphocytes 1.41 0.90 - [facility] 2.90 LABORATORIES - X10(9)/L [facility] Monocytes 0.65 0.30 - [facility] 0.90 LABORATORIES - X10(9)/L [facility] Eosinophils 0.25 0.05 - [facility] 0.50 LABORATORIES - X10(9)/L [facility] Basophils 0.01 0.00 - [facility] 0.30 LABORATORIES - X10(9)/L [facility] Specimen Anatomical Collection Method Collection Time Receive d Time (Source) Location / / Volume Laterality 05/01/2013 12:51 05/01/2013 AM MATCH UP PERSON 12:51 AM MATCH UP PERSON Rakan Ortiz M.D. LAB BLOOD ADD-ON Performing Organization Address City/State/ZIP Code Phon e Number [facility] LABORATORIES - [address] [place], [place] [address] [facility] Microbiology Reports (04/30/2013 5:11 PM MATCH UP PERSON) Specimen Anatomical Collection Method Collection Time Receive d Time (Source) Location / / Volume Laterality 04/30/2013 5:11 PM 4 5:11 MATCH UP PERSON PM MATCH UP PERSON Narrative [facility] - [facility] - 05/01/2013 12:44 PM MATCH UP PERSON 30-APR-2013 URINE, MIDSTREAM, ?SoftOrd# [id number] ?(Ordered 30-APR-2013; Collec michele 30-APR-2013 17:11; Received 30-APR-2013 17:45) ?[facility] ?BACTERIAL CULTURE, AEROBIC + [place] ? (Reported 01-MAY-2013 12:44) FINAL ?No Growth after 1 day of inc ubation. Procedure Note 07/05/2017 30-APR-2013 URINE, MIDSTREAM, SoftOrd# [id number] (Ordered 30-APR-2013; Collected 2013 17:11; Received 30-APR-2013 17:45) [facility] BACTERIAL CULTURE, AEROBIC + SUSC (Rep orted 01-MAY-2013 12:44) FINAL No Growth after 1 day of incubation. Rakan Ortiz M.D. LAB MICROBIOLOGY - GENERAL O RDERABLES Performing Organization Address City/[facility]/ZIP Code Phon e Number [address] Microscopic Manual (04/30/2013 5:11 PM MATCH UP PERSON) [facility] Method Time Signature Microscopy Normal [facility] Casts, Hyaline 4-10 /LPF [facility] Specimen Anatomical Collection Method Collection Time Receive d Time (Source) Location / / Volume Laterality 04/30/2013 5:11 PM 4 5:11 MATCH UP PERSON PM MATCH UP PERSON Rakan Ortiz M.D. LAB URINE ORDERABLES Performing Organization Address [facility] Phon e Number [facility] - [address] [place] [address] Legionella Ag, U (04/30/2013 5:11 PM MATCH UP PERSON) [facility] Method Time Signature Legionella Ag, Negative Negative [facility] Comment: Negative for L. pneumophila serogroup 1 antigen, suggesting no recent or ? current infection. Infection due to Legi onella cannot be ruled out since ? other serogroups and species may cause d isease, antigen may not be present in ? urine in early infection, and the level of antigen present in the urine may ? be below the detection limit of the test . ? Specimen Anatomical Collection Method Collection Time Receive d Time (Source) Location / / Volume Laterality 04/30/2013 5:11 PM 4 5:11 MATCH UP PERSON PM MATCH UP PERSON Rakan Ortiz M.D. LAB MICROBIOLOGY - GENERAL O RDERABLES Performing Organization Address City/State/ZIP Code Phon e Number [facility] - [address] [place], [place] [address] [facility] (ABNORMAL) Urinalysis with Microscopic (04/30/2013 5:11 PM MATCH UP PERSON) [facility] Method Time Signature Source Midstream [facility] Appearance Normal Normal [facility] pH, 24 HR, U 5.6 4.5 - 8.0 [facility] Protein/Osmola 0.21 (H) <0.12 RATIO [facility] lity [facility] Predicted 24 217 MG/24 H [facility] Hr Protein LABORATORIES [facility] Predicted 69-684 MG/24 H [facility] Range [facility] Glucose 17 (H) 0 - 15 MG/DL [facility] Protein, U 8 0 - 19 MG/DL [facility] Hemoglobin, QL Negative Negative [facility] Osmolality, 24 373 150 - 1150 [facility] HR, U MOSM/KG LABORATORIES [facility] Specimen Anatomical Collection Method Collection Time Receive d Time (Source) Location / / Volume Laterality 04/30/2013 5:11 PM 4 5:11 MATCH UP PERSON PM MATCH UP PERSON Rakan Ortiz M.D. LAB URINE ORDERABLES Performing Organization Address City/[facility]/ZIP Code Phon e Number [facility] LABORATORIES - [address] [phone] [facility] Sodium, Random, Urine (04/30/2013 5:11 PM MATCH UP PERSON) [facility] Method Time Signature Sodium, 50 Interpret [facility] Random, U with other; LABORATORIES - [facility] data. MMOL/L CAMPUS Specimen Anatomical Collection Method Collection Time Receive d Time (Source) Location / / Volume Laterality 04/30/2013 5:11 PM 4 5:11 MATCH UP PERSON PM MATCH UP PERSON Rakan Ortiz M.D. LAB URINE ORDERABLES Performing Organization Address City/[facility]/ZIP Code Phon e Number [facility] LABORATORIES - [address] [address] [facility] Gram Stain, Urine (04/30/2013 5:11 PM MATCH UP PERSON) [facility] Method Time Signature Gram's Stain, Negative [facility] Screen, U LABORATORIES - [facility] Specimen Anatomical Collection Method Collection Time Receive d Time (Source) Location / / Volume Laterality 04/30/2013 5:11 PM 4 5:11 MATCH UP PERSON PM MATCH UP PERSON Rakan Ortiz M.D. LAB URINE ORDERABLES Performing Organization Address City/[facility]/ZIP Code Phon e Number [facility] LABORATORIES - [address] [place], [place] [address] [facility] Creatinine, Random, Urine (04/30/2013 5:11 PM MATCH UP PERSON) [facility] Method Time Signature Creatinine, 40 Used to [facility] Random, U normalize LABORATORIES - other; [facility] values. MG/DL CAMPUS Specimen Anatomical Collection Method Collection Time Receive d Time (Source) Location / / Volume Laterality 04/30/2013 5:11 PM 4 5:11 MATCH UP PERSON PM MATCH UP PERSON Rakan Ortiz M.D. LAB URINE ORDERABLES Performing Organization Address City/[facility]/ZIP Code Phon e Number [facility] LABORATORIES - [address] [place], [place] [address] [facility] DX Chest Portable 1 View (04/30/2013 12:31 PM MATCH UP PERSON) Anatomical Region Laterality Modality Chest N/A Radiographic Imaging Specimen (Source) Anatomical Collection Method Collection Time Re ceived Time Location / / Volume Laterality 04/30/2013 12:31 PM MATCH UP PERSON Narrative 04/30/2013 12:33 PM MATCH UP PERSON 30-Apr-2013 12:31:00 ??Exam: Portable-Chest Indications: central line placement ORIGINAL REPORT - 30-Apr-2013 12:33:00 Chest; 1 view: Since earlier today, a right IJ central line has been placed. Otherwise no change. No pneumothorax. Electronically signed by: ?? Amber Keller MD. ??[id number] 30-Apr-2013 12: 33 Procedure Note Eric Keller M.D. - 06/24/2017Format ting of this note might be different from the original. 30-Apr-2013 12:31:00 Exam: Portable-Ches t Indications: central line placement ORIGINAL REPORT - 30-Apr-2013 12:33:00 Chest; 1 view: Since earlier today, a right IJ central line has been placed. Otherwise no change. No pneumothorax. Electronically signed by: Amber Keller MD. [id number] 30-Apr-2013 12:33 Davis Morales M.D. IMG DIAGNOSTIC IMAGING PROCE DURES Influenza A[facility]B And RSV, [facility] (04/30/2013 12:02 PM MATCH UP PERSON) [facility] Method Time Signature Specimen [facility] ([facility]/B RSV, LABORATORIES - Misc) [facility] Influenza A, Negative Negative [facility] PCR LABORATORIES - [facility] Influenza B, Negative Negative [facility] PCR LABORATORIES - [facility] Respiratory Negative Negative [facility] Syncytial LABORATORIES - Virus, PCR [facility] Specimen Anatomical Collection Method Collection Time Receive d Time (Source) Location / / Volume Laterality 04/30/2013 12:02 04/30/2013 PM MATCH UP PERSON 12:02 PM MATCH UP PERSON Meg Mayer M.D., B.S. LAB MICROBIOLOGY - GENERA L ORDERABLES Performing Organization Address City/State/ZIP Code Phon e Number [facility] - [address] [place] [address] [facility] Microbiology Reports (04/30/2013 11:02 AM MATCH UP PERSON) Specimen Anatomical Collection Method Collection Time Receive d Time (Source) Location / / Volume Laterality 04/30/2013 11:02 04/30/2013 AM MATCH UP PERSON 11:02 AM MATCH UP PERSON Narrative [facility] - [facility] - 05/05/2013 6:30 PM MATCH UP PERSON 30-APR-2013 BLOOD VIA ARTERIAL LINE, ? SoftOrd# [id number] ?(Ordered 30-APR-2013; Collec michele 30-APR-2013 11:02; Received 30-APR-2013 12:31) ?[facility] ?BACTERIA/LANDEN CULTURE, BLOOD ? (Reported 05-MAY-2013 18:30) FINAL ?No growth after 5 days of in cubation. Procedure Note 07/05/2017 30-APR-2013 BLOOD VIA ARTERIAL LINE, So ftOrd# [id number] (Ordered 30-APR-2013; Collected 2013 11:02; Received 30-APR-2013 12:31) [facility] BACTERIA/LANDEN CULTURE, BLOOD (Repor michele 05-MAY-2013 18:30) FINAL No growth after 5 days of incubation. Meg Mayer M.D., B.S. LAB MICROBIOLOGY - GENERA L ORDERABLES Performing Organization Address City/State/ZIP Code Phon e Number [facility] - [address] [place], [place] [address] [facility] (ABNORMAL) Blood Gas with Coox, Arterial (04/30/2013 11:02 AM MATCH UP PERSON) [facility] Method Time Signature Arterial Art Line [facility] Sample Site LABORATORIES [facility] O2 Flow 3.0 L/MIN [facility] pO2 76 (L) 80 - 100 [facility] MM HG LABORATORIES [facility] pCO2 36 35 - 45 [facility] MM HG [facility] pH 7.30 (L) 7.35 - [facility] 7.45 PH [facility] Base Excess -8 (L) -2 - 2 [facility] MMOL/L LABORATORIES [facility] O2Hb 90.2 (L) 94.0 - [facility] 98.0 % [facility] COHb 2.7 <3.0 % [facility] Device NC [facility] LABORATORIES - [facility] Spont. 22 [facility] breaths/min [facility] HCO3 17 (L) 22 - 26 [facility] MMOL/L [facility] Hb 11.5 (L) 13.5 - [facility] 17.5 G/DL [facility] MetHb <1.0 <1.6 % [facility] CtO2 14.6 (L) 21.0 - [facility] 23.0 VOL LABORATORIES - % [facility] Specimen Anatomical Collection Method Collection Time Receive d Time (Source) Location / / Volume Laterality 04/30/2013 11:02 04/30/2013 AM MATCH UP PERSON 11:02 AM MATCH UP PERSON Meg Mayer M.D., B.S. LAB BLOOD NON ADD-ON Performing Organization Address City/[facility]/ZIP Code Phon e Number [facility] LABORATORIES - [address] [address] [facility] Cortisol (04/30/2013 11:02 AM MATCH UP PERSON) P athologist Signature Cortisol, S 23 a.m. : [facility] 7-25; p.m. LABORATORIES - : 2-14 [facility] MCG/DL CAMPUS Specimen Anatomical Collection Method Collection Time Receive d Time (Source) Location / / Volume Laterality 04/30/2013 11:02 04/30/2013 AM MATCH UP PERSON 11:02 AM MATCH UP PERSON Meg Mayer M.D., B.S. LAB BLOOD ADD-ON Performing Organization Address City/[facility] [facility] Phon e Number [facility]ORATORIES - [address] [place] [phone] [facility] Thyroid Function [place] (04/30/2013 11:02 AM MATCH UP PERSON) P athologist Signature TSH, Sensitive 0.6 0.3 - 5.0 [facility] MIU/L [facility] Specimen Anatomical Collection Method Collection Time Receive d Time (Source) Location / / Volume Laterality 04/30/2013 11:02 04/30/2013 AM MATCH UP PERSON 11:02 AM MATCH UP PERSON Meg Mayer M.D., B.S. LAB BLOOD ADD-ON Performing Organization Address City/State/ZIP Code Phon e Number [facility] - [address] [place], [place] [address] [facility] Microbiology Reports (04/30/2013 10:50 AM MATCH UP PERSON) Specimen Anatomical Collection Method Collection Time Receive d Time (Source) Location / / Volume Laterality 04/30/2013 10:50 04/30/2013 AM MATCH UP PERSON 10:50 AM MATCH UP PERSON Narrative [facility] - 05/05/2013 12:30 PM MATCH UP PERSON 30-APR-2013 BLOOD, ? SoftOrd# [id number] ?(Ordered 30-APR-2013; Collec michele 30-APR-2013 10:50; Received 30-APR-2013 12:26) ?[facility] ?BACTERIA/LANDEN CULTURE, BLOOD ? (Reported 05-MAY-2013 12:30) FINAL ?No growth after 5 days of in cubation. Procedure Note 07/05/2017 30-APR-2013 BLOOD, SoftOrd# [id number] (Ordered 30-APR-2013; Collected 2013 10:50; Received 30-APR-2013 12:26) [facility] BACTERIA/LANDEN CULTURE, BLOOD (Repor michele 05-MAY-2013 12:30) FINAL No growth after 5 days of incubation. Meg Mayer M.D., B.S. LAB MICROBIOLOGY - GENERA L ORDERABLES Performing Organization Address City/[facility] Code Phon e Number [facility] - [address] [phone] [facility] AST (Aspartate Aminotransferase) (04/30/2013 10:50 AM MATCH UP PERSON) [facility] [place] Method Time Signature Aspartate 42 8 - 48 [facility] Aminotransferase U/L LABORATORIES - (AST), P [facility] Specimen Anatomical Collection Method Collection Time Receive d Time (Source) Location / / Volume Laterality 04/30/2013 10:50 04/30/2013 AM MATCH UP PERSON 10:50 AM MATCH UP PERSON Meg Mayer M.D., B.S. LAB BLOOD ADD-ON Performing Organization Address [facility] Phon e Number [facility] - [address] (ABNORMAL) Electrolyte Panel with Creatinine [place] (04/30/2013 10:50 AM MATCH UP PERSON) [facility] [place] Method Time Signature BUN (Blood 19 8 - 24 [facility] Urea MG/DL LABORATORIES - Nitrogen), S [facility] HX 18 (L) 22 - 29 [facility] Bicarbonate, MMOL/L LABORATORIES - P/S [facility] Sodium, P 127 (L) 135 - 145 [facility] MMOL/L LABORATORIES - [facility] Potassium, P 4.6 3.6 - 5.2 [facility] MMOL/L LABORATORIES - [facility] Creatinine, 0.7 (L) 0.9 - 1.4 [facility] [place] MG/DL LABORATORIES - [facility] Glucose, S 132 70 - 140 [facility] MG/DL LABORATORIES - [facility] Chloride, S 102 100 - 108 [facility] MMOL/L LABORATORIES - [facility] Specimen Anatomical Collection Method Collection Time Receive d Time (Source) Location / / Volume Laterality 04/30/2013 10:50 04/30/2013 AM MATCH UP PERSON 10:50 AM MATCH UP PERSON Meg Mayer M.D., B.S. LAB BLOOD ADD-ON Performing Organization Address City/[facility] Phon e Number [facility] - [address] [phone] [facility] Alkaline Phosphatase (04/30/2013 10:50 AM MATCH UP PERSON) athologist [facility] Alkaline 51 45 - 115 [facility] Phosphatase, S U/L [facility] Specimen Anatomical Collection Method Collection Time Receive d Time (Source) Location / / Volume Laterality 04/30/2013 10:50 04/30/2013 AM MATCH UP PERSON 10:50 AM MATCH UP PERSON Meg Mayer M.D., B.S. LAB BLOOD ADD-ON Performing Organization Address City/State/ZIP Code Phon e Number [facility] - [address] [phone] [facility] Bilirubin, Direct (04/30/2013 10:50 AM MATCH UP PERSON) [facility] Bilirubin, 0.1 0.0 - 0.3 [facility] Direct, S MG/DL LABORATORIES [facility] Specimen Anatomical Collection Method Collection Time Receive d Time (Source) Location / / Volume Laterality 04/30/2013 10:50 04/30/2013 AM MATCH UP PERSON 10:50 AM MATCH UP PERSON Meg Mayer M.D., B.S. LAB BLOOD ADD-ON Performing Organization Address City/State/ZIP Code Phon e Number [facility] - [address] [phone] [facility] Lactate (04/30/2013 10:50 AM MATCH UP PERSON) [facility] Lactate, P 1.1 0.6 - 2.3 [facility] MMOL/L [facility] Specimen Anatomical Collection Method Collection Time Receive d Time (Source) Location / / Volume Laterality 04/30/2013 10:50 04/30/2013 AM MATCH UP PERSON 10:50 AM MATCH UP PERSON Meg Mayer M.D., B.S. LAB BLOOD NON ADD-ON Performing Organization Address City/[facility]/ZIP Code Phon e Number [facility] - [address] [phone] [facility] (ABNORMAL) NT-Pro B-Type Natriuretic Peptide (BNP) (04/30/2013 10:50 AM MATCH UP PERSON) [facility] NT-Pro BNP 890 (H) <=79 PG/ML [facility] Comment: NT-proBNP values less than 300 pg/mL hav e a 99% negative predictive value ? for excluding acute congestive heart neymar lure. A cutoff of 1200 pg/mL for ? patients with an eGFR<60 yields a diagno stic sensitivity and specificity of ? 89% and 72% for acute congestive heart f ailure. ??A diagnostic NT-proBNP ? cutoff of 900 pg/mL has been suggested i n adults 50-75 years of age in the ? absence of renal failure. ? Specimen Anatomical Collection Method Collection Time Receive d Time (Source) Location / / Volume Laterality 04/30/2013 10:50 04/30/2013 AM MATCH UP PERSON 10:50 AM MATCH UP PERSON Meg Mayer M.D., B.S. LAB BLOOD ADD-ON Performing Organization Address City/State/[facility] Code Phon e Number [facility] - [address] [phone] [facility] Bilirubin, Total (04/30/2013 10:50 AM MATCH UP PERSON) P athologist Signature Bilirubin, 0.3 0.1 - 1.0 [facility] Total, P MG/DL LABORATORIES [facility] Specimen Anatomical Collection Method Collection Time Receive d Time (Source) Location / / Volume Laterality 04/30/2013 10:50 04/30/2013 AM MATCH UP PERSON 10:50 AM MATCH UP PERSON Meg Mayer M.D., B.S. LAB BLOOD ADD-ON Performing Organization Address City/[facility] Code Phon e Number [facility]IES - [address] [phone] [facility] (ABNORMAL) CBC with Differential (04/30/2013 10:50 AM MATCH UP PERSON) Patholo gist Method Time Signature Hemoglobin 12.0 (L) 13.5 - [facility] 17.5 G/DL [facility] Hematocrit 35.9 (L) 38.8 - [facility] 50.0 % [facility] RBC Distrib 13.7 11.8 - [facility] Width 15.6 % [facility] Platelet Count 219 150 - 450 [facility] X10(9)/L [facility] Leukocytes 10.0 3.5 - [facility] 10.5 LABORATORIES - X10(9)/L [facility] Neutrophils 7.72 (H) 1.70 - [facility] 7.00 LABORATORIES - X10(9)/L [facility] Eosinophils 0.11 0.05 - [facility] 0.50 LABORATORIES - X10(9)/L [facility] Basophils 0.02 0.00 - [facility] 0.30 LABORATORIES - X10(9)/L [facility] Erythrocytes 3.89 (L) 4.32 - [facility] 5.72 LABORATORIES - X10(12)/L [facility] MCV 92.3 81.2 - [facility] 95.1 [place] LABORATORIES [facility] Lymphocytes 1.29 0.90 - [facility] 2.90 LABORATORIES - X10(9)/L [facility] Monocytes 0.87 0.30 - [facility] 0.90 LABORATORIES - X10(9)/L [facility] Specimen Anatomical Collection Method Collection Time Receive d Time (Source) Location / / Volume Laterality 04/30/2013 10:50 04/30/2013 AM MATCH UP PERSON 10:50 AM MATCH UP PERSON Meg Mayer M.D., B.S. LAB BLOOD ADD-ON Performing Organization Address City/[facility]/ZIP Code Phon e Number [facility]IES - [address] [phone] [facility] ALT (Alanine Aminotransferase) (04/30/2013 10:50 AM MATCH UP PERSON) Patholo gist Method Time Signature Alanine 40 7 - 55 [facility] Aminotransferase U/L LABORATORIES - (ALT), S [facility] Specimen Anatomical Collection Method Collection Time Receive d Time (Source) Location / / Volume Laterality 04/30/2013 10:50 04/30/2013 AM MATCH UP PERSON 10:50 AM MATCH UP PERSON Meg Mayer M.D., B.S. LAB BLOOD ADD-ON Performing Organization Address City/[facility] Phon e Number [facility]ATORIES - [address] [phone] [facility] Cardiac Biomarker Panel (04/30/2013 10:50 AM MATCH UP PERSON) Analysis Performed At Patho logist Time Signature Delta Interp Not Sig [facility] Comment: No significant delta observed. Troponin Delta 0.00 NG/ML [facility] Troponin Delta 0.00 NG/ML [facility] Troponin T, S <0.01 <0.01 NG/ML [facility] Troponin T 3H, S <0.01 <0.01 NG/ML [facility] Troponin T 6H, S <0.01 <0.01 NG/ML [facility] Delta Interp Not Sig [facility] Comment: No significant delta observed. Specimen Anatomical Collection Method Collection Time Receive d Time (Source) Location / / Volume Laterality 04/30/2013 10:50 04/30/2013 AM MATCH UP PERSON 10:50 AM MATCH UP PERSON Meg Mayer M.D., B.S. LAB BLOOD ADD-ON Performing Organization Address City/State/ZIP Code Phon e Number [facility]IES - [address] [place], [place] [address] [facility] DX Chest Portable 1 View (04/30/2013 10:28 AM MATCH UP PERSON) Anatomical Region Laterality Modality Chest N/A Radiographic Imaging Specimen (Source) Anatomical Collection Method Collection Time Re ceived Time Location / / Volume Laterality 04/30/2013 10:28 AM MATCH UP PERSON Narrative 04/30/2013 10:31 AM MATCH UP PERSON 30-Apr-2013 10:28:00 ??Exam: Portable-Chest Indications: sepsis ORIGINAL REPORT - 30-Apr-2013 10:31:00 Chest; 1 view: Tortuous aorta. Chest otherwise negative . Electronically signed by: ?? Amber Keller MD. ??[id number] 30-Apr-2013 10: 31 Procedure Note Eric Keller M.D. - 06/24/2017Format ting of this note might be different from the original. 30-Apr-2013 10:28:00 Exam: Portable-Ches t Indications: sepsis ORIGINAL REPORT - 30-Apr-2013 10:31:00 Chest; 1 view: Tortuous aorta. Chest otherwise negative . Electronically signed by: Amber Keller MD. [id number] 30-Apr-2013 10:31 Meg Mayer M.D., B.S. IMG DIAGNOSTIC IMAGING [place] OCEDURES documented in this encounter Visit Diagnoses Not on filedocumented in this encounter
== END 2022-02-17 08:22 | disposition home or self-care (01) ==
LOC: AMB 03-04 16:14
PROVIDERS: PCP Internal Medicine; Visit Provider Emergency Medicine
DX: R42 Dizziness and giddiness (principal)
CPT/HCPCS: A0425; A0427

== ENCOUNTER 2022-11-05 10:08 | Day surgery (SDC) | payer MEDICARE, BC, SELFPAY ==
[2022-11-05] VITALS (11 sets, daily range): BP systolic 146–200; BP diastolic 100–131; PULSE 73–105; RESP 12–16; TEMP 36.6; O2SAT 96–100; BMI 30.4
[2022-11-05] MEDS: LACTATED RINGERS 1000 ML 1,000 ML 100 ML IV (10:25)
[2022-11-05] MEDS: SODIUM CHLORIDE 0.9 % (FLUSH) 10 ML SYRINGE IVF (10:56)
[2022-11-05] MEDS: OXYMETAZOLINE 0.05% NASAL SPRAY 2 SPRAY NOSTRIL-B (11:00)
--- NOTE | 2022-11-05 11:31 | W.ANESCHARGE ---
Anesthesia Charges Start Date/Time Anesthesia Start Date: 11/05/22 Anesthesia Start Time: 11:46 Stop Date/Time Anesthesia Stop Date: 11/05/22 Anesthesia Stop Time: 12:29 Summary Extremes of Age - Over 70 or under 1: MDA
[2022-11-05] MEDS: BUPIVACAINE 0.5%/EPINEPHRINE 0.9 MG (30.9 ML) INJECTION (11:58)
--- NOTE | 2022-11-05 12:03 | SUR.OPER ---
PATIENT QUESTIONS ANSWERED SATISFACTORILY PREOPERATIVELY. PATIENT BROUGHT TO OR #1 PER CART. Patient positioned supine on OR #1 bed. Perioperative team wrapped arms bilaterally at patient side with drawsheet. Final approval of positioning by surgeon.
[2022-11-05] MEDS: AYR SALINE NASAL GEL 1 APPLIC NOSTRIL-B (12:05)
--- NOTE | 2022-11-05 12:29 | W.ANESCHARGE ---
Anesthesia Charges Start Date/Time Anesthesia Start Date: 11/05/22 Anesthesia Start Time: 11:46 Stop Date/Time Anesthesia Stop Date: 11/05/22 Anesthesia Stop Time: 12:29
[2022-11-05] MEDS: LACTATED RINGERS 1000 ML 1,000 ML 35 ML IV (12:30)
--- NOTE | 2022-11-05 13:03 | W.PM.ENTPROC ---
Procedure Note Date of procedure: 11/05/22 Procedure: Preoperative diagnosis nasal obstruction severe bilateral deviated septum, bilateral inferior turbinate hypertrophy, Postoperative diagnosis same plus large right middle turbinate nadia bullosa Procedure partial resection right middle turbinate nadia bullosa, nasal septoplasty, submucous partial resection inferior turbinates Under general endotracheal anesthesia patient was prepped and draped usual fashion. The nose was injected and decongested. A right hemitransfixion incision was made left anterior and posterior tunnels were created. Right anterior and posterior tunnels were created. A vertical incision was made through the cartilage anterior to the bony cartilaginous junction and the posterior deflected portions of septal bone were resected. A large piece was trimmed and returned to intraseptal space. The inferior turbinates were up address neck is. A stab incision was made in the anterior of the right inferior turbinate a tunnel created with a [place] dissector. A conservative anterior submucous resection was performed. The Coblation Wand was used to cauterize intramurally along the inferior 10%. This was repeated on the left side in identical fashion. There was a large right middle turbinate nadia bullosa. A stab incision was made with a 15 blade an incision completed along the inferior aspect of the hollow portion of the turbinate with a turbinate scissors. The turbinate was then simply crushed with the [place] forceps. The hemitransfixion was closed with 2 4-0 chromic sutures and silastic stents secured with 3-0 nylon. A Merocel pack trimmed coated in Bactroban was placed on each side. The patient procedure well was taken recovery in satisfactory condition. Blood loss was less than 25 mL. Surgeon: Rony Winston MD
== END 2022-11-05 13:47 | disposition home or self-care (01) ==
LOC: OR 10:09
PROVIDERS: PCP Internal Medicine; Visit Provider Otolaryngology
PROC: (CPT 30520; principal; 2022-11-05 11:30)
DX: J34.2 Deviated nasal septum (principal); J34.3 Hypertrophy of nasal turbinates; J34.89 Other specified disorders of nose and nasal sinuses
CPT/HCPCS: 30520; 30140; 30999; 160; 99100; J0330; J1100; J2405; J2704; J3010; J7120